=== PATIENT | male | born 1930 | race Caucasian/White ===

== ENCOUNTER 2018-07-19 10:40 | Inpatient (IN) | payer MEDICARE, OTHER ==
[~2018-07-19] VITALS: Ht 195.6 cm; Wt 97.2 kg
[2018-07-19] MEDS ORDERED: IV NORMAL SALINE 1000ML BAG 1,000 ML IV SCH (10:50)
[2018-07-19] MEDS ORDERED: MORPHINE SULFATE 2 MG/ML VIAL. IV ONE (11:00)
--- NOTE | 2018-07-19 11:07 | PHYS DOC ---
Past Medical History Past Medical History: Hyperthyroid Smoking: Quit Greater Than 1 Year Adult General HPI HPI Patient is an 88-year-old male who presents to the emergency department via EMS from his doctor's office. The patient states he has been having increasing right leg and foot pain for the past 4-5 days. He also has had a bluish discoloration of his right foot. 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 The patient was sent to the emergency department emergently for possible arterial occlusion. The report from EMS stated that the patient had an ultrasound done at the doctor's office but I am not certain that this is the case as there is no report. Additionally, the patient has a readily palpable posterior tibial pulse on the right. The patient denies any chest pain shortness of breath, numbness, or weakness. He does not take any anticoagulants. There are no other alleviating or exacerbating factors to his symptoms. I will attempt to contact the patient's PCP for further clarification of the concerns and any diagnostic testing that might of been done. Update: I did speak with the patient's PCP, who said that the patient had an arterial ultrasound done about 2 days ago which did show extensive arterial disease of popliteal aneurysms. The patient's PCPs office states that he called the vascular surgery office affiliated with this hospital, and was told by the front desk attendant to send the patient to the emergency department. Review of Systems Review of Systems Constitutional: Denies fever or chills [] Eyes: Denies change in visual acuity, redness, or eye pain [] HENT: Denies nasal congestion or sore throat [] Respiratory: Denies cough or shortness of breath [] Cardiovascular: The patient denies any shortness of breath, chest pain, palpitations, or orthopnea[] GI: Denies abdominal pain, nausea, vomiting, bloody stools or diarrhea [] : Denies dysuria or hematuria [] Musculoskeletal: Denies back pain or joint pain. Does complain of right leg and foot pain. [] Integument: Denies rash or skin lesions [] Neurologic: Denies headache, focal weakness or sensory changes [] Endocrine: Denies polyuria or polydipsia [] All other systems were reviewed and found to be within normal limits, except as documented in this note. Current Medications Current Medications Current Medications Medications (Trade) Dose Ordered Sig/Kaci Start Time Stop Time Status Last Admin Dose Admin Hydromorphone HCl (Dilaudid) 1 mg 1X ONCE 07/19/18 14:30 07/19/18 14:31 07/19/18 14:25 1 MG Iohexol (Omnipaque 350 Mg/ml) 95 ml 1X ONCE 07/19/18 11:45 07/19/18 11:46 DC 07/19/18 11:45 95 ML Morphine Sulfate (Morphine Sulfate) 4 mg 1X ONCE 07/19/18 12:00 07/19/18 12:01 DC 07/19/18 11:54 4 MG Sodium Chloride 1,000 ml @ 100 mls/hr Q10H 07/19/18 10:50 07/19/18 20:49 07/19/18 11:17 100 MLS/HR Allergies Allergies Allergies Coded Allergies Type Severity Reaction Last Updated Verified penicillin G Allergy Intermediate 07/19/18 Yes Physical Exam Physical Exam PHYSICAL EXAM: CONSTITUTIONAL: Well developed, well nourished HEAD: normocephalic, atraumatic EENT: PERRL, EOMI. Conjunctivae normal color, sclerae non-icteric; moist mucous membranes. NECK: Supple, non-tender; no meningismus. LUNGS: Lungs CTA, breathing even and unlabored. Normal air movement. HEART: irregularly irregular rhythm, no murmur CHEST: No deformity; non-tender ABDOMEN: The abdomen is soft, and non-tender, no masses or bruits. EXTREM: Normal ROM; no deformity, there are bounding we palpable popliteal pulses bilaterally. There is a readily palpable posterior tibial pulse on the right, there is a weakly palpable dorsalis pedis pulse, both arteries have strong Doppler signals. There is a dusky appearance to the foot distally, and somewhat medially as well, on the right, without any coolness or warmth palpable. There is mild edema to the right leg relative to the left. SKIN: No rash; no diaphoresis NEURO: Alert; normal speech and cognition; CN's grossly intact; strength grossly intact without focal deficit. BACK: No CVA TTP. Current Patient Data Vital Signs Vital Signs Date Time Temp Pulse Resp B/P (MAP) Pulse Ox O2 Delivery O2 Flow Rate FiO2 6/5/19 14:25 29 Room Air 07/19/18 11:54 100 07/19/18 10:40 98.2 71 140/82 (101) 98.2 Lab Values Laboratory Tests Test 07/19/18 10:55 White Blood Count 7.5 x10^3/uL (4.0-11.0) Red Blood Count 4.86 x10^6/uL (4.30-5.70) Hemoglobin 13.4 g/dL (13.0-17.5) Hematocrit 41.8 % (39.0-53.0) Mean Corpuscular Volume 86 fL (79-100) Mean Corpuscular Hemoglobin 28 pg (25-35) Mean Corpuscular Hemoglobin Concent 32 g/dL (31-37) Red Cell Distribution Width 16.6 % (11.5-14.5) H Platelet Count 166 x10^3/uL (140-400) Neutrophils (%) (Auto) 79 % (31-73) H Lymphocytes (%) (Auto) 12 % (24-48) L Monocytes (%) (Auto) 7 % (0-9) Eosinophils (%) (Auto) 1 % (0-3) Basophils (%) (Auto) 1 % (0-3) Neutrophils # (Auto) 6.0 x10^3uL (1.8-7.7) Lymphocytes # (Auto) 0.9 x10^3/uL (1.0-4.8) L Monocytes # (Auto) 0.5 x10^3/uL (0.0-1.1) Eosinophils # (Auto) 0.1 x10^3/uL (0.0-0.7) Basophils # (Auto) 0.0 x10^3/uL (0.0-0.2) Prothrombin Time 13.1 SEC (11.7-14.0) Prothrombin Time INR 1.0 (0.8-1.1) PTT 30 SEC (24-38) Sodium Level 139 mmol/L (136-145) Potassium Level 4.2 mmol/L (3.5-5.1) Chloride Level 104 mmol/L (98-107) Carbon Dioxide Level 25 mmol/L (21-32) Anion Gap 10 (6-14) Blood Urea Nitrogen 16 mg/dL (8-26) Creatinine 1.0 mg/dL (0.7-1.3) Estimated GFR (Cockcroft-Gault) 70.5 BUN/Creatinine Ratio 16 (6-20) Glucose Level 91 mg/dL (70-99) Lactic Acid Level 1.4 mmol/L (0.4-2.0) Calcium Level 9.2 mg/dL (8.5-10.1) Magnesium Level 2.5 mg/dL (1.8-2.4) H Total Bilirubin 0.7 mg/dL (0.2-1.0) Aspartate Amino Transferase (AST) 23 U/L (15-37) Alanine Aminotransferase (ALT) 17 U/L (16-63) Alkaline Phosphatase 71 U/L (46-116) Creatine Kinase 153 U/L (39-308) QL-Uaq-T-Type Natriuretic Peptide 1582 pg/mL (0-449) H Total Protein 7.6 g/dL (6.4-8.2) Albumin 3.8 g/dL (3.4-5.0) Albumin/Globulin Ratio 1.0 (1.0-1.7) Laboratory Tests 07/19/18 10:55 Laboratory Tests 07/19/18 10:55 EKG EKG Probable Atrial fibrillation at a rate of 64 bpm, left axis deviation, normal intervals. There are no acute ischemic ST/T changes. Radiology/Procedures Radiology/Procedures [PROCEDURE: VENOUS LOWER EXTREMITY RIGHT Right lower extremity venous doppler ultrasound Indication: Pain and swelling, discoloration. Technique: Color Doppler, grayscale, and spectral waveform analysis is used to evaluate the right femoral and popliteal veins. Findings: No evidence of deep venous thrombosis. Normal response to augmentation, normal compressibility and normal phasicity is demonstrated. Visualized calf veins are patent. Incidentally noted is a dilated popliteal artery, with partial thrombosis, compatible with an aneurysm measuring up to 4 cm diameter. Impression: 1. No evidence of deep venous thrombosis. 2. Right popliteal artery aneurysm, was more completely evaluated on arterial Doppler ultrasound of July 17, 2018. ] PROCEDURE: CT ANGIO ABD ILEO/FEMOR RUNOFF CT ANGIO ABD ILEO/FEMOR RUNOFF Indication: Right leg pain, swelling and discoloration Exposure: One or more of the following individualized dose reduction techniques were utilized for this examination: 1. Automated exposure control 2. Adjustment of the mA and/or kV according to patient size 3. Use of iterative reconstruction technique. TECHNIQUE: Standard imaging obtained after intravenous contrast. MIP reconstructions were obtained. A delayed acquisition is obtained through the calf bilaterally about 10 seconds after the initial acquisition as per the technologist. Emergency interpretation and reporting was requested. Comparison: None are available. Contrast: Intravenous contrast was given Lower abdominal aorta: The lower abdominal aorta is calcified and ectatic. Inferior mesenteric artery is patent. Left lower extremity: Left common iliac artery measures 2.5 cm diameter compatible with aneurysmal dilatation. Ectasia of the internal and external iliac arteries with tortuosity. Diffuse atherosclerotic calcification. The proximal to mid superficial femoral artery is patent. There is gradual diminished enhancement of the distal superficial femoral artery, with no enhancement of the popliteal artery on the initial acquisition. There is a popliteal artery aneurysm, which measures about 2.5 cm diameter. The lack of flow in the popliteal artery suggests thrombosis or occlusion. There is no visible flow in the calf runoff arteries on the initial acquisition. The delayed acquisition does demonstrate some minimal but very poor opacification of the runoff arteries which are calcified. Generalized atherosclerotic calcification. Right lower extremity: Ectasia of the right iliac arteries. Right superficial femoral artery is ectatic but grossly patent. There is a popliteal artery aneurysm. The entire aneurysm measures about 5 cm diameter with mural thrombus. The patent lumen measures 2.2 cm. There is flow within the posterior tibial artery which is narrow and calcified but does appear to cross the ankle. Peroneal artery is narrowed but patent through the distal calf. Poor and intermittent flow is seen within the right anterior tibial artery, but it does appear to extend to the level of the ankle. No definite flow in the dorsalis pedis artery. Generalized atherosclerotic calcification. Nonvascular findings: Exam is limited by the technique. Symmetric enhancement of the lower kidneys. Colonic diverticulosis. Degenerative changes at the lower spine and skeletal pelvis, and knees. IMPRESSION: 1. Left popliteal artery aneurysm. There is gradual diminished enhancement of the distal left superficial femoral artery and popliteal artery suggesting thrombosis or occlusion. Poor arterial flow through the calf runoff arteries. 2. Right popliteal artery aneurysm with a patent lumen. The runoff calf arteries are atherosclerotic and irregular, although do demonstrate some flow. 3. 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 Course & Med Decision Making Course & Med Decision Making Pertinent Labs and Imaging studies reviewed. (See chart for details) []2:25 PM: The patient's condition remained stable. The exact etiology of his leg discomfort and discoloration is unknown. The patient is in atrial fibrillation, and the possibility of emboli is also entertained, although the clinical appearance is not highly suggestive of this. The patient be admitted to the hospitalist service, who has been paged, and vascular surgery will be consulted. Dragon Disclaimer Dragon Disclaimer This electronic medical record was generated, in whole or in part, using a voice recognition dictation system. Departure Departure Impression: Primary Impression: Leg pain Additional Impression: PVD (peripheral vascular disease) Disposition: ADMITTED INPATIENT [facility] Condition: STABLE Problem Qualifiers JUAN VALLE MD Jul 19, 2018 11:07
[2018-07-19 11:14] LABS: BASO % 1 % (0-3); EOS # 0.1 x10^3/uL (0.0-0.7); EOS % 1 % (0-3); HEMATOCRIT 41.8 % (39.0-53.0); HEMOGLOBIN 13.4 g/dL (13.0-17.5); LYMPH # 0.9 x10^3/uL (1.0-4.8); LYMPH % 12 % (24-48); MEAN CORPUSCULAR HEMOGLOBIN 28 pg (25-35); MEAN CORPUSCULAR HGB CONC 32 g/dL (31-37); MEAN CORPUSCULAR VOLUME 86 fL (79-100); MONO # 0.5 x10^3/uL (0.0-1.1); MONO % 7 % (0-9); NEUT % 79 % (31-73); PLATELET COUNT 166 x10^3/uL (140-400); RED BLOOD COUNT 4.86 x10^6/uL (4.30-5.70); RED CELL DISTRIBUTION WIDTH 16.6 % (11.5-14.5); WHITE BLOOD COUNT 7.5 x10^3/uL (4.0-11.0)
[2018-07-19 11:24] LABS: PROTHROMBIN TIME PATIENT 13.1 SEC (11.7-14.0)
[2018-07-19 11:32] LABS: CALCIUM 9.2 mg/dL (8.5-10.1); GFR 70.5; POTASSIUM 4.2 mmol/L (3.5-5.1)
[2018-07-19 11:45] LABS: ALBUMIN 3.8 g/dL (3.4-5.0); MAGNESIUM 2.5 mg/dL (1.8-2.4); TOTAL BILIRUBIN 0.7 mg/dL (0.2-1.0); TOTAL PROTEIN 7.6 g/dL (6.4-8.2)
[2018-07-19] MEDS ORDERED: IOHEXOL 350 MG/ML 100 ML VIAL. IV ONE (11:45)
[2018-07-19] MEDS ORDERED: LEVO50TA5 PO (11:51)
[2018-07-19] MEDS ORDERED: DONE10TA61 PO (11:51)
[2018-07-19] MEDS ORDERED: GABA-585 PO (11:51)
[2018-07-19] MEDS ORDERED: MEMA10TA PO (11:51)
--- NOTE | 2018-07-19 11:55 | RAD ---
Right lower extremity venous doppler ultrasound Indication: Pain and swelling, discoloration. Technique: Color Doppler, grayscale, and spectral waveform analysis is used to evaluate the right femoral and popliteal veins. Findings: No evidence of deep venous thrombosis. Normal response to augmentation, normal compressibility and normal phasicity is demonstrated. Visualized calf veins are patent. Incidentally noted is a dilated popliteal artery, with partial thrombosis, compatible with an aneurysm measuring up to 4 cm diameter. Impression: 1. No evidence of deep venous thrombosis. 2. Right popliteal artery aneurysm, was more completely evaluated on arterial Doppler ultrasound of July 17, 2018. Electronically signed by: Sherwin Clemens MD (07/19/2018 11:52 AM) [facility]
[2018-07-19] MEDS ORDERED: MORPHINE SULFATE 4 MG/ML VIAL. IV ONE (12:00)
--- NOTE | 2018-07-19 12:05 | EKG ---
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
--- NOTE | 2018-07-19 14:01 | RAD ---
CT ANGIO ABD ILEO/FEMOR RUNOFF Indication: Right leg pain, swelling and discoloration Exposure: One or more of the following individualized dose reduction techniques were utilized for this examination: 1. Automated exposure control 2. Adjustment of the mA and/or kV according to patient size 3. Use of iterative reconstruction technique. TECHNIQUE: Standard imaging obtained after intravenous contrast. MIP reconstructions were obtained. A delayed acquisition is obtained through the calf bilaterally about 10 seconds after the initial acquisition as per the technologist. Emergency interpretation and reporting was requested. Comparison: None are available. Contrast: Intravenous contrast was given Lower abdominal aorta: The lower abdominal aorta is calcified and ectatic. Inferior mesenteric artery is patent. Left lower extremity: Left common iliac artery measures 2.5 cm diameter compatible with aneurysmal dilatation. Ectasia of the internal and external iliac arteries with tortuosity. Diffuse atherosclerotic calcification. The proximal to mid superficial femoral artery is patent. There is gradual diminished enhancement of the distal superficial femoral artery, with no enhancement of the popliteal artery on the initial acquisition. There is a popliteal artery aneurysm, which measures about 2.5 cm diameter. The lack of flow in the popliteal artery suggests thrombosis or occlusion. There is no visible flow in the calf runoff arteries on the initial acquisition. The delayed acquisition does demonstrate some minimal but very poor opacification of the runoff arteries which are calcified. Generalized atherosclerotic calcification. Right lower extremity: Ectasia of the right iliac arteries. Right superficial femoral artery is ectatic but grossly patent. There is a popliteal artery aneurysm. The entire aneurysm measures about 5 cm diameter with mural thrombus. The patent lumen measures 2.2 cm. There is flow within the posterior tibial artery which is narrow and calcified but does appear to cross the ankle. Peroneal artery is narrowed but patent through the distal calf. Poor and intermittent flow is seen within the right anterior tibial artery, but it does appear to extend to the level of the ankle. No definite flow in the dorsalis pedis artery. Generalized atherosclerotic calcification. Nonvascular findings: Exam is limited by the technique. Symmetric enhancement of the lower kidneys. Colonic diverticulosis. Degenerative changes at the lower spine and skeletal pelvis, and knees. IMPRESSION: 1. Left popliteal artery aneurysm. There is gradual diminished enhancement of the distal left superficial femoral artery and popliteal artery suggesting thrombosis or occlusion. Poor arterial flow through the calf runoff arteries. 2. Right popliteal artery aneurysm with a patent lumen. The runoff calf arteries are atherosclerotic and irregular, although do demonstrate some flow. 3. 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 Electronically signed by: Sherwin Clemens MD (07/19/2018 1:58 PM) [facility]
[2018-07-19] MEDS ORDERED: HYDROmorphone 2 MG/ML VIAL IV ONE (14:30)
[2018-07-19 19:00] VITALS: BP 123/69
--- NOTE | 2018-07-19 19:11 | PDOC ---
Provider Note Provider Note (Please see full dictation) 88 yo male presents with 3-4 week history of right foot pain and discoloration. He has had discoloration of the right foot for several months. The pain has been more recent. An arterial US 07/17/18 showed bilateral popliteal artery aneurysms with relatively normal distal tibial artery flow. CTA confirmed that finding today. He has cyanosis starting on the proximal foot with 3-4 second capillary refill more distally. He has some decreased sensation on the right foot. Findings are consistent with ischemia of the foot despite reasonable more proximal vessel flow. This is concerning for embolization of the distal vessels in the foot. Would recommend anticoagulation with heparin with angiogram and possible thrombolysis of pedal vessels if indicated. I discussed risks and benefits in detail with him and his [id number] (phone) and friends at the bedside. He acknowledged and elected to proceed. Will have a Rooke boot placed on the right foot. JESSICA GEORGE MD Jul 19, 2018 19:11
[2018-07-19] MEDS ORDERED: HEPARIN for IV BOLUS 10,000 UNIT/10 ML VIAL. IV PRN (19:15)
[2018-07-19] MEDS ORDERED: HEPARIN for IV BOLUS 10,000 UNIT/10 ML VIAL. IV ONE (19:15)
[2018-07-19] MEDS ORDERED: HEPARIN 25,000UTS/500ML PREMIX 500 ML IV PRN (19:15)
[2018-07-19] MEDS: MORPHINE SULFATE 4 MG/ML VIAL. IV PRN ×2 (19:17→21:58)
--- NOTE | 2018-07-19 20:05 | NUR ---
Order placed by Dr. De Luna to have panel monitor on. Per Dr. Gonzalez, pt. will be transferred to [facility]. This was explained to pt. Pt. agreed to transfer. Will continue to monitor.
--- NOTE | 2018-07-19 21:00 | NUR ---
Pt. was transferred to room 671 at this time. Report was given to LIVIER Serrano around 2034.
[2018-07-19 21:49] VITALS: BP 148/67
[2018-07-19] MEDS: IV NORMAL SALINE 1000ML BAG 1,000 ML IV SCH (22:00)
--- NOTE | 2018-07-19 22:41 | NUR ---
Patient arrived to the floor via bed and escorted by nurse Galarza. Patient VSS, lungs clear to auscultation, pulses irregular and 2t in BUE, pulses weak and irregular in BLE, RLE dusky in color, warm to touch and very painful. Heparin drip and NS fluids started, pain meds given and pt resting comfortably. Will continue to monitor.
--- NOTE | 2018-07-19 23:29 | HP ---
ADMIT DATE: 07/19/2018 CHIEF COMPLAINT: Right leg cyanosis and pain and discoloration. HISTORY OF PRESENT ILLNESS: The patient is a pleasant 88-year-old male who presented with right foot and leg discoloration. It is painful. It is cool to touch. He apparently had an arterial ultrasound done on 07/17/2018 which showed bilateral popliteal artery aneurysms. It appears the patient has an arterial occlusion. I discussed the case with ER physician. We are going to admit the patient and consult Dr. De Luna. Dr. De Luna just showed up and states that the patient probably has had emboli to the lower extremity from the aneurysm. He is going to consider doing some catheterization of the lower extremity and put him on some heparin tonight. PAST MEDICAL HISTORY: Peripheral vascular disease, hypothyroidism. ALLERGIES: PENICILLIN. FAMILY HISTORY: Coronary artery disease. SOCIAL HISTORY: He does not drink, smoke or take drugs (he quit smoking within 1 year ago). MEDICATIONS: Reviewed, please refer to the MRAD. REVIEW OF SYSTEMS: GENERAL: No history of weight change, weakness or fevers. SKIN: No bruising, hair changes or rashes. EYES: No blurred, double or loss of vision. NOSE AND THROAT: No history of nosebleeds, hoarseness or sore throat. HEART: No history of palpitations, chest pain or shortness of breath on exertion. LUNGS: Denies cough, hemoptysis, wheezing or shortness of breath. GASTROINTESTINAL: Denies changes in appetite, nausea, vomiting, diarrhea or constipation. GENITOURINARY: No history of frequency, urgency, hesitancy or nocturia. NEUROLOGIC: Denies history of numbness, tingling, tremor or weakness. PSYCHIATRIC: No history of panic, anxiety or depression. ENDOCRINE: No history of heat or cold intolerance, polyuria or polydipsia. EXTREMITIES: He complains of right foot pain and discoloration. PHYSICAL EXAMINATION: VITAL SIGNS: Temperature afebrile, pulse 80, respirations 16, blood pressure 148/67, O2 sat 95%. GENERAL: He is alert, cooperative, very pleasant. His family is present, so is Dr. De Luna. He is here examining the patient with me. HEART: Distant S1, S2. LUNGS: Clear to auscultation. ABDOMEN: Soft, positive bowel sounds. EXTREMITIES: The right foot is cyanotic, slightly cool to touch. He has got a pedal pulse, but it is thready and distant but is painful. ENDOCRINE: No thyromegaly. LYMPHATICS: No cervical nodes. HEMATOPOIETIC: No bruising. PSYCHIATRIC: He is stable. VASCULAR: He has got poor capillary refill on the right foot. LABORATORY DATA: Hematology is normal. Electrolytes are normal. Magnesium slightly high at 2.5. ASSESSMENT AND PLAN: Probable arterial occlusion, probably secondary to embolic disease from clots that may have arisen from the aneurysm in the popliteal space. The patient has been admitted. We are consulting Dr. De Luna. He is going to place the patient on heparin and take him for an angiogram in the morning. Suspect he may get some TPA. For now, cardiac monitoring, home meds, frequent labs. Full code. PROGNOSIS: Guarded. LIZBETH HARTMAN DO DR: LA NENA/patricia JOB#: [id number] / [id number]
[2018-07-19 23:42] VITALS: BP 146/71
[2018-07-20] VITALS (9 sets, daily range): BP systolic 114–138; BP diastolic 68–82
[2018-07-20] MEDS: MORPHINE SULFATE 4 MG/ML VIAL. IV PRN ×3 (03:31→21:07)
[2018-07-20 03:42] LABS: HEMATOCRIT 35.7 % (39.0-53.0); HEMOGLOBIN 11.7 g/dL (13.0-17.5); RED BLOOD COUNT 4.22 x10^6/uL (4.30-5.70); RED CELL DISTRIBUTION WIDTH 15.9 % (11.5-14.5); WHITE BLOOD COUNT 5.8 x10^3/uL (4.0-11.0)
[2018-07-20 05:49] LABS: CALCIUM 8.4 mg/dL (8.5-10.1); CREATININE 0.8 mg/dL (0.7-1.3); GFR 91.2; POTASSIUM 3.9 mmol/L (3.5-5.1)
--- NOTE | 2018-07-20 10:38 | PDOC ---
[employer] PROGRESS NOTE Chief Complaint Chief Complaint Probable arterial occlusion, probably secondary to embolic disease from clots that may have arisen from the aneurysm in the popliteal space. Hypothyroidism PVD Advanced age He is DNR History of Present Illness History of Present Illness Patient seen and examined He is currently getting an echocardiogram I unwrapped the right leg and it appears to have slightly better circulation but not much Discussed with case management The plan is to getting to interventional radiology today to catheterize that r ight leg and consider TPA therapy to dissolve probable clots He may eventually need to have surgery on the right popliteal space to fix the aneurysm Dr. De Luna is following Vitals Vitals Vital Signs Date Time Temp Pulse Resp B/P (MAP) Pulse Ox O2 Delivery O2 Flow Rate FiO2 07/20/18 07:05 98.1 86 16 117/68 (84) 94 Room Air 98.1 Physical Exam General: Alert, Oriented X3, Cooperative Heart: Regular rate, Normal S1, Normal S2 Lungs: Clear, Wheezing Abdomen: Normal bowel sounds, Soft Extremities: Other (right foot cool to touch low) Skin: No rashes, No breakdown Labs Labs: Laboratory Tests Test 07/19/18 10:55 07/20/18 03:30 White Blood Count 7.5 x10^3/uL (4.0-11.0) 5.8 x10^3/uL (4.0-11.0) Red Blood Count 4.86 x10^6/uL (4.30-5.70) 4.22 x10^6/uL (4.30-5.70) Hemoglobin 13.4 g/dL (13.0-17.5) 11.7 g/dL (13.0-17.5) Hematocrit 41.8 % (39.0-53.0) 35.7 % (39.0-53.0) Mean Corpuscular Volume 86 fL (79-100) 85 fL (79-100) Mean Corpuscular Hemoglobin 28 pg (25-35) 28 pg (25-35) Mean Corpuscular Hemoglobin Concent 32 g/dL (31-37) 33 g/dL (31-37) Red Cell Distribution Width 16.6 % (11.5-14.5) 15.9 % (11.5-14.5) Platelet Count 166 x10^3/uL (140-400) 159 x10^3/uL (140-400) Neutrophils (%) (Auto) 79 % (31-73) Lymphocytes (%) (Auto) 12 % (24-48) Monocytes (%) (Auto) 7 % (0-9) Eosinophils (%) (Auto) 1 % (0-3) Basophils (%) (Auto) 1 % (0-3) Neutrophils # (Auto) 6.0 x10^3uL (1.8-7.7) Lymphocytes # (Auto) 0.9 x10^3/uL (1.0-4.8) Monocytes # (Auto) 0.5 x10^3/uL (0.0-1.1) Eosinophils # (Auto) 0.1 x10^3/uL (0.0-0.7) Basophils # (Auto) 0.0 x10^3/uL (0.0-0.2) Prothrombin Time 13.1 SEC (11.7-14.0) Prothromb Time International Ratio 1.0 (0.8-1.1) Activated Partial Thromboplast Time 30 SEC (24-38) Sodium Level 139 mmol/L (136-145) 140 mmol/L (136-145) Potassium Level 4.2 mmol/L (3.5-5.1) 3.9 mmol/L (3.5-5.1) Chloride Level 104 mmol/L (98-107) 105 mmol/L (98-107) Carbon Dioxide Level 25 mmol/L (21-32) 25 mmol/L (21-32) Anion Gap 10 (6-14) 10 (6-14) Blood Urea Nitrogen 16 mg/dL (8-26) 13 mg/dL (8-26) Creatinine 1.0 mg/dL (0.7-1.3) 0.8 mg/dL (0.7-1.3) Estimated GFR (Cockcroft-Gault) 70.5 91.2 BUN/Creatinine Ratio 16 (6-20) Glucose Level 91 mg/dL (70-99) 100 mg/dL (70-99) Lactic Acid Level 1.4 mmol/L (0.4-2.0) Calcium Level 9.2 mg/dL (8.5-10.1) 8.4 mg/dL (8.5-10.1) Magnesium Level 2.5 mg/dL (1.8-2.4) Total Bilirubin 0.7 mg/dL (0.2-1.0) Aspartate Amino Transf (AST/SGOT) 23 U/L (15-37) Alanine Aminotransferase (ALT/SGPT) 17 U/L (16-63) Alkaline Phosphatase 71 U/L (46-116) Creatine Kinase 153 U/L (39-308) HX-Cup-X-Type Natriuretic Peptide 1582 pg/mL (0-449) 2065 pg/mL (0-449) Total Protein 7.6 g/dL (6.4-8.2) Albumin 3.8 g/dL (3.4-5.0) Albumin/Globulin Ratio 1.0 (1.0-1.7) Heparin Anti-Xa Act, Unfractionated 0.12 IU/mL (0.30-0.70) Thyroid Stimulating Hormone (TSH) 3.435 uIU/mL (0.358-3.74) Assessment and Plan Assessmemt and Plan Problems Medical Problems: (1) Leg pain Status: Acute (2) PVD (peripheral vascular disease) Status: Acute Peripheral vascular disease with probable embolic clots to the right foot vascu lature Plan Discussed with case management The plan is to getting to interventional radiology today to catheterize that right leg and consider TPA therapy to dissolve probable clots He may eventually need to have surgery on the right popliteal space to fix the aneurysm Dr. De Luna is following Comment Review of Relevant I have reviewed the following items mendoza (where applicable) has been applied. Labs Laboratory Tests Test 07/19/18 10:55 07/20/18 03:30 White Blood Count 7.5 x10^3/uL (4.0-11.0) 5.8 x10^3/uL (4.0-11.0) Red Blood Count 4.86 x10^6/uL (4.30-5.70) 4.22 x10^6/uL (4.30-5.70) Hemoglobin 13.4 g/dL (13.0-17.5) 11.7 g/dL (13.0-17.5) Hematocrit 41.8 % (39.0-53.0) 35.7 % (39.0-53.0) Mean Corpuscular Volume 86 fL (79-100) 85 fL (79-100) Mean Corpuscular Hemoglobin 28 pg (25-35) 28 pg (25-35) Mean Corpuscular Hemoglobin Concent 32 g/dL (31-37) 33 g/dL (31-37) Red Cell Distribution Width 16.6 % (11.5-14.5) 15.9 % (11.5-14.5) Platelet Count 166 x10^3/uL (140-400) 159 x10^3/uL (140-400) Neutrophils (%) (Auto) 79 % (31-73) Lymphocytes (%) (Auto) 12 % (24-48) Monocytes (%) (Auto) 7 % (0-9) Eosinophils (%) (Auto) 1 % (0-3) Basophils (%) (Auto) 1 % (0-3) Neutrophils # (Auto) 6.0 x10^3uL (1.8-7.7) Lymphocytes # (Auto) 0.9 x10^3/uL (1.0-4.8) Monocytes # (Auto) 0.5 x10^3/uL (0.0-1.1) Eosinophils # (Auto) 0.1 x10^3/uL (0.0-0.7) Basophils # (Auto) 0.0 x10^3/uL (0.0-0.2) Prothrombin Time 13.1 SEC (11.7-14.0) Prothromb Time International Ratio 1.0 (0.8-1.1) Activated Partial Thromboplast Time 30 SEC (24-38) Sodium Level 139 mmol/L (136-145) 140 mmol/L (136-145) Potassium Level 4.2 mmol/L (3.5-5.1) 3.9 mmol/L (3.5-5.1) Chloride Level 104 mmol/L (98-107) 105 mmol/L (98-107) Carbon Dioxide Level 25 mmol/L (21-32) 25 mmol/L (21-32) Anion Gap 10 (6-14) 10 (6-14) Blood Urea Nitrogen 16 mg/dL (8-26) 13 mg/dL (8-26) Creatinine 1.0 mg/dL (0.7-1.3) 0.8 mg/dL (0.7-1.3) Estimated GFR (Cockcroft-Gault) 70.5 91.2 BUN/Creatinine Ratio 16 (6-20) Glucose Level 91 mg/dL (70-99) 100 mg/dL (70-99) Lactic Acid Level 1.4 mmol/L (0.4-2.0) Calcium Level 9.2 mg/dL (8.5-10.1) 8.4 mg/dL (8.5-10.1) Magnesium Level 2.5 mg/dL (1.8-2.4) Total Bilirubin 0.7 mg/dL (0.2-1.0) Aspartate Amino Transf (AST/SGOT) 23 U/L (15-37) Alanine Aminotransferase (ALT/SGPT) 17 U/L (16-63) Alkaline Phosphatase 71 U/L (46-116) Creatine Kinase 153 U/L (39-308) GM-Gmo-J-Type Natriuretic Peptide 1582 pg/mL (0-449) 2065 pg/mL (0-449) Total Protein 7.6 g/dL (6.4-8.2) Albumin 3.8 g/dL (3.4-5.0) Albumin/Globulin Ratio 1.0 (1.0-1.7) Heparin Anti-Xa Act, Unfractionated 0.12 IU/mL (0.30-0.70) Thyroid Stimulating Hormone (TSH) 3.435 uIU/mL (0.358-3.74) Laboratory Tests Test 07/19/18 10:55 07/20/18 03:30 White Blood Count 7.5 x10^3/uL (4.0-11.0) 5.8 x10^3/uL (4.0-11.0) Red Blood Count 4.86 x10^6/uL (4.30-5.70) 4.22 x10^6/uL (4.30-5.70) Hemoglobin 13.4 g/dL (13.0-17.5) 11.7 g/dL (13.0-17.5) Hematocrit 41.8 % (39.0-53.0) 35.7 % (39.0-53.0) Mean Corpuscular Volume 86 fL (79-100) 85 fL (79-100) Mean Corpuscular Hemoglobin 28 pg (25-35) 28 pg (25-35) Mean Corpuscular Hemoglobin Concent 32 g/dL (31-37) 33 g/dL (31-37) Red Cell Distribution Width 16.6 % (11.5-14.5) 15.9 % (11.5-14.5) Platelet Count 166 x10^3/uL (140-400) 159 x10^3/uL (140-400) Neutrophils (%) (Auto) 79 % (31-73) Lymphocytes (%) (Auto) 12 % (24-48) Monocytes (%) (Auto) 7 % (0-9) Eosinophils (%) (Auto) 1 % (0-3) Basophils (%) (Auto) 1 % (0-3) Neutrophils # (Auto) 6.0 x10^3uL (1.8-7.7) Lymphocytes # (Auto) 0.9 x10^3/uL (1.0-4.8) Monocytes # (Auto) 0.5 x10^3/uL (0.0-1.1) Eosinophils # (Auto) 0.1 x10^3/uL (0.0-0.7) Basophils # (Auto) 0.0 x10^3/uL (0.0-0.2) Prothrombin Time 13.1 SEC (11.7-14.0) Prothromb Time International Ratio 1.0 (0.8-1.1) Activated Partial Thromboplast Time 30 SEC (24-38) Sodium Level 139 mmol/L (136-145) 140 mmol/L (136-145) Potassium Level 4.2 mmol/L (3.5-5.1) 3.9 mmol/L (3.5-5.1) Chloride Level 104 mmol/L (98-107) 105 mmol/L (98-107) Carbon Dioxide Level 25 mmol/L (21-32) 25 mmol/L (21-32) Anion Gap 10 (6-14) 10 (6-14) Blood Urea Nitrogen 16 mg/dL (8-26) 13 mg/dL (8-26) Creatinine 1.0 mg/dL (0.7-1.3) 0.8 mg/dL (0.7-1.3) Estimated GFR (Cockcroft-Gault) 70.5 91.2 BUN/Creatinine Ratio 16 (6-20) Glucose Level 91 mg/dL (70-99) 100 mg/dL (70-99) Lactic Acid Level 1.4 mmol/L (0.4-2.0) Calcium Level 9.2 mg/dL (8.5-10.1) 8.4 mg/dL (8.5-10.1) Magnesium Level 2.5 mg/dL (1.8-2.4) Total Bilirubin 0.7 mg/dL (0.2-1.0) Aspartate Amino Transf (AST/SGOT) 23 U/L (15-37) Alanine Aminotransferase (ALT/SGPT) 17 U/L (16-63) Alkaline Phosphatase 71 U/L (46-116) Creatine Kinase 153 U/L (39-308) NZ-Eiy-N-Type Natriuretic Peptide 1582 pg/mL (0-449) 2065 pg/mL (0-449) Total Protein 7.6 g/dL (6.4-8.2) Albumin 3.8 g/dL (3.4-5.0) Albumin/Globulin Ratio 1.0 (1.0-1.7) Heparin Anti-Xa Act, Unfractionated 0.12 IU/mL (0.30-0.70) Thyroid Stimulating Hormone (TSH) 3.435 uIU/mL (0.358-3.74) Medications Current Medications Morphine Sulfate (Morphine Sulfate) 2 mg 1X ONCE IV Last administered on 07/19/18at 11:19; Start 07/19/18 at 11:00; Stop 07/19/18 at 11:07; Status DC Sodium Chloride 1,000 ml @ 100 mls/hr Q10H IV Last administered on 07/19/18at 11:17; Start 07/19/18 at 10:50; Stop 07/19/18 at 20:49; Status DC Iohexol (Omnipaque 350 Mg/ml) 95 ml 1X ONCE IV Last administered on 07/19/18at 11:45; Start 07/19/18 at 11:45; Stop 07/19/18 at 11:46; Status DC Morphine Sulfate (Morphine Sulfate) 4 mg 1X ONCE IV Last administered on 07/19/18at 11:54; Start 07/19/18 at 12:00; Stop 07/19/18 at 12:01; Status DC Hydromorphone HCl (Dilaudid) 1 mg 1X ONCE IV Last administered on 07/19/18at 14:25; Start 07/19/18 at 14:30; Stop 07/19/18 at 14:31; Status DC Morphine Sulfate (Morphine Sulfate) 4 mg PRN Q2HR PRN IV PAIN Last administered on 07/20/18at 03:31; Start 07/19/18 at 14:45; Stop 07/20/18 at 14:44 Heparin Sodium (Porcine) (Heparin Sodium) 6,900 unit 1X ONCE IV Last administered on 07/19/18at 21:21; Start 07/19/18 at 19:15; Stop 07/19/18 at 19:21; Status DC Heparin Sodium/ Dextrose 500 ml @ 0 mls/hr CONT PRN IV SEE I/O RECORD; Start 07/19/18 at 19:15 Heparin Sodium (Porcine) (Heparin Sodium) 2,150 unit PRN Q6HRS PRN IV FOR UFH LEVEL LESS THAN 0.2 Last administered on 07/20/18at 04:37; Start 07/19/18 at 19:15 Sodium Chloride 1,000 ml @ 50 mls/hr Q20H IV Last administered on 07/19/18at 22:00; Start 07/19/18 at 19:45 Lorazepam (Ativan Inj) 2 mg 1X ONCE IM/IV Last administered on 07/20/18at 03:30; Start 07/20/18 at 03:30; Stop 07/20/18 at 03:31; Status DC Haloperidol (Haldol) 5 mg PRN Q6HRS PRN PO AGITATION; Start 07/20/18 at 03:15 Active Scripts Active Reported Aricept (Donepezil Hcl) 10 Mg Tablet 23 Mg PO HS Gabapentin (Gabapentin) 100 Mg Capsule 100 Mg PO TID Namenda (Memantine Hcl) 10 Mg Tablet 10 Mg PO DAILY Levothyroxine Sodium 50 Mcg Tablet 1 Tab PO DAILY Vitals/I & O Vital Sign - Last 24 Hours 07/19/18 07/19/18 07/19/18 07/19/18 10:40 11:16 11:19 11:46 Temp 98.2 98.2 Pulse 71 82 78 Resp 20 20 18 16 B/P (MAP) 140/82 (101) 146/78 (100) 134/69 (90) Pulse Ox 100 100 100 100 O2 Delivery Room Air Room Air Room Air 07/19/18 07/19/18 07/19/18 07/19/18 11:54 12:16 13:01 13:30 Pulse 68 78 64 Resp 16 16 16 16 B/P (MAP) 144/81 (102) 132/76 (94) 113/67 (82) Pulse Ox 100 98 100 99 O2 Delivery Room Air 07/19/18 07/19/18 07/19/18 07/19/18 14:00 14:25 14:30 15:06 Pulse 64 82 86 Resp 16 29 16 16 B/P (MAP) 96/70 (79) 141/86 (104) 138/80 (99) Pulse Ox 100 98 100 O2 Delivery Room Air Room Air Room Air 07/19/18 07/19/18 07/19/18 07/19/18 16:22 19:00 19:17 19:47 Temp 97.4 97.4 Pulse 74 Resp 18 16 18 B/P (MAP) 123/69 (87) Pulse Ox 98 O2 Delivery Room Air Room Air Room Air 07/19/18 07/19/18 07/19/18 07/19/18 20:00 21:49 21:58 23:42 Temp 97.5 98.1 97.5 98.1 Pulse 60 64 Resp 16 18 B/P (MAP) 148/67 (94) 146/71 (96) Pulse Ox 95 94 O2 Delivery Room Air Room Air Room Air Room Air 07/20/18 07/20/18 07/20/18 07/20/18 03:31 03:49 04:27 07:05 Temp 98.5 98.1 98.5 98.1 Pulse 90 86 Resp 16 16 B/P (MAP) 114/72 (86) 117/68 (84) Pulse Ox 95 94 O2 Delivery Room Air Room Air Room Air Room Air Intake and Output 07/19/18 07/19/18 07/20/18 15:00 23:00 07:00 Intake Total 1100 ml 0 ml Output Total 1100 ml 100 ml Balance -1100 ml 1100 ml -100 ml LIZBETH HARTMAN III DO Jul 20, 2018 10:38
--- NOTE | 2018-07-20 10:41 | PDOC2 ---
TANYA JANG CASINO CAGE MANAGER 07/20/18 1041: CARDIAC CONSULT DATE OF CONSULT Date of Consult DATE: 07/20/18 TIME: 10:35 REASON FOR CONSULT Reason for Consult: AFIB REFERRING PHYSICIAN Referring Physician: Dr. De Luna SOURCE Source: Chart review, Patient HISTORY OF PRESENT ILLNESS HISTORY OF PRESENT ILLNESS This is an 88 yo male who presented secondary to right leg/foot pain with blueish discoloration. Patient reports mild swelling and discoloration has been present for the last couple of months. Became painful in the last week or so. Was seen by primary care physician and was referred to the ED for further evaluation and treatment. Was noted in AFIB, which prompted this consult. No known history of AFIB. No recent chest pain, palpitations, dizziness, diaphoresis, or nausea/vomiting. Is slightly anxious as he is having difficulty urinating presently and reports mild dyspnea. PAST MEDICAL HISTORY Cardiovascular: No pertinent hx Pulmonary: No pertinent hx CENTRAL NERVOUS SYSTEM: Other (no pertinent hx) GI: No pertinent hx Heme/Onc: Cancer (colon ) Hepatobiliary: No pertinent hx Psych: No pertinent hx Musculoskeletal: Osteoarthritis Rheumatologic: No pertinent hx Infectious disease: No pertinent hx ENT: No pertinent hx Renal/: No pertinent hx Endocrine: No pertinent hx, Hypothyroidism Dermatology: No pertinent hx PAST SURGICAL HISTORY Past Surgical History: Colon Resection, Other (right knee surgery ) FAMILY HISTORY Family History: Other (noncontributory to age ) SOCIAL HISTORY Smoke: Quit (20 years ago) ALCOHOL: social Drugs: None Lives: with Family CURRENT MEDICATIONS CURRENT MEDICATIONS Current Medications Medications (Trade) Dose Ordered Sig/Kaci Route PRN Reason Start Time Stop Time Status Last Admin Dose Admin Morphine Sulfate (Morphine Sulfate) 2 mg 1X ONCE IV 07/19/18 11:00 07/19/18 11:07 DC 07/19/18 11:19 Sodium Chloride 1,000 ml @ 100 mls/hr Q10H IV 07/19/18 10:50 07/19/18 20:49 DC 07/19/18 11:17 Iohexol (Omnipaque 350 Mg/ml) 95 ml 1X ONCE IV 07/19/18 11:45 07/19/18 11:46 DC 07/19/18 11:45 Morphine Sulfate (Morphine Sulfate) 4 mg 1X ONCE IV 07/19/18 12:00 07/19/18 12:01 DC 07/19/18 11:54 Hydromorphone HCl (Dilaudid) 1 mg 1X ONCE IV 07/19/18 14:30 07/19/18 14:31 DC 07/19/18 14:25 Morphine Sulfate (Morphine Sulfate) 4 mg PRN Q2HR PRN IV PAIN 07/19/18 14:45 07/20/18 14:44 07/20/18 03:31 Heparin Sodium (Porcine) (Heparin Sodium) 6,900 unit 1X ONCE IV 07/19/18 19:15 07/19/18 19:21 DC 07/19/18 21:21 Heparin Sodium (Porcine) (Heparin Sodium) 2,150 unit PRN Q6HRS PRN IV FOR UFH LEVEL LESS THAN 0.2 07/19/18 19:15 07/20/18 04:37 Sodium Chloride 1,000 ml @ 50 mls/hr Q20H IV 07/19/18 19:45 07/19/18 22:00 Lorazepam (Ativan Inj) 2 mg 1X ONCE IM/IV 07/20/18 03:30 07/20/18 03:31 DC 07/20/18 03:30 ALLERGIES ALLERGIES: Coded Allergies: penicillin G (Verified Allergy, Intermediate, 07/19/18) ROS Review of System 14 point ROS conducted with pertinent positives noted above in HPI. PHYSICAL EXAM General: Alert, Oriented X3, Cooperative HEENT: Atraumatic, Mucous membr. moist/pink Lungs: Clear to auscultation Heart: Normal S1, Normal S2, Other (AFIB) Abdomen: Soft, No tenderness Extremities: Other (1+ right foot edema. Rt rook boot) Skin: No significant lesion, Other (cyanosis of right foot. ) Neuro: Normal speech, Sensation intact Psych/Mental Status: Mental status NL, Other (anxious ) MUSCULOSKELETAL: Osteoarthritic changes both hands VITALS VITALS Vital Signs Date Time Temp Pulse Resp B/P (MAP) Pulse Ox O2 Delivery O2 Flow Rate FiO2 07/20/18 07:05 98.1 86 16 117/68 (84) 94 Room Air 98.1 LABS Lab: Laboratory Tests Test 07/19/18 10:55 07/20/18 03:30 White Blood Count 7.5 x10^3/uL (4.0-11.0) 5.8 x10^3/uL (4.0-11.0) Red Blood Count 4.86 x10^6/uL (4.30-5.70) 4.22 x10^6/uL (4.30-5.70) Hemoglobin 13.4 g/dL (13.0-17.5) 11.7 g/dL (13.0-17.5) Hematocrit 41.8 % (39.0-53.0) 35.7 % (39.0-53.0) Mean Corpuscular Volume 86 fL (79-100) 85 fL (79-100) Mean Corpuscular Hemoglobin 28 pg (25-35) 28 pg (25-35) Mean Corpuscular Hemoglobin Concent 32 g/dL (31-37) 33 g/dL (31-37) Red Cell Distribution Width 16.6 % (11.5-14.5) 15.9 % (11.5-14.5) Platelet Count 166 x10^3/uL (140-400) 159 x10^3/uL (140-400) Neutrophils (%) (Auto) 79 % (31-73) Lymphocytes (%) (Auto) 12 % (24-48) Monocytes (%) (Auto) 7 % (0-9) Eosinophils (%) (Auto) 1 % (0-3) Basophils (%) (Auto) 1 % (0-3) Neutrophils # (Auto) 6.0 x10^3uL (1.8-7.7) Lymphocytes # (Auto) 0.9 x10^3/uL (1.0-4.8) Monocytes # (Auto) 0.5 x10^3/uL (0.0-1.1) Eosinophils # (Auto) 0.1 x10^3/uL (0.0-0.7) Basophils # (Auto) 0.0 x10^3/uL (0.0-0.2) Prothrombin Time 13.1 SEC (11.7-14.0) Prothromb Time International Ratio 1.0 (0.8-1.1) Activated Partial Thromboplast Time 30 SEC (24-38) Sodium Level 139 mmol/L (136-145) 140 mmol/L (136-145) Potassium Level 4.2 mmol/L (3.5-5.1) 3.9 mmol/L (3.5-5.1) Chloride Level 104 mmol/L (98-107) 105 mmol/L (98-107) Carbon Dioxide Level 25 mmol/L (21-32) 25 mmol/L (21-32) Anion Gap 10 (6-14) 10 (6-14) Blood Urea Nitrogen 16 mg/dL (8-26) 13 mg/dL (8-26) Creatinine 1.0 mg/dL (0.7-1.3) 0.8 mg/dL (0.7-1.3) Estimated GFR (Cockcroft-Gault) 70.5 91.2 BUN/Creatinine Ratio 16 (6-20) Glucose Level 91 mg/dL (70-99) 100 mg/dL (70-99) Lactic Acid Level 1.4 mmol/L (0.4-2.0) Calcium Level 9.2 mg/dL (8.5-10.1) 8.4 mg/dL (8.5-10.1) Magnesium Level 2.5 mg/dL (1.8-2.4) Total Bilirubin 0.7 mg/dL (0.2-1.0) Aspartate Amino Transf (AST/SGOT) 23 U/L (15-37) Alanine Aminotransferase (ALT/SGPT) 17 U/L (16-63) Alkaline Phosphatase 71 U/L (46-116) Creatine Kinase 153 U/L (39-308) CH-Bzv-Z-Type Natriuretic Peptide 1582 pg/mL (0-449) 2065 pg/mL (0-449) Total Protein 7.6 g/dL (6.4-8.2) Albumin 3.8 g/dL (3.4-5.0) Albumin/Globulin Ratio 1.0 (1.0-1.7) Heparin Anti-Xa Act, Unfractionated 0.12 IU/mL (0.30-0.70) Thyroid Stimulating Hormone (TSH) 3.435 uIU/mL (0.358-3.74) ASSESSMENT/PLAN ASSESSMENT/PLAN 1. Limb ischemia; suspected embolic. Vascular surgery following. Abdominal angiogram later today 2. Popliteal artery aneurysm, bilateral 3. PAD; CTA notable for possible left distal SFA and popliteal occlusion 4. AFIB, new finding. HR well-controlled 5. Urinary retention; Valentine to be placed 6. Hypothyroidism; on replacement therapy Recommendations Echo to assess LV systolic function TSH, lipids Continue heparin gtt Will likely need long-term OAC Follow vascular surgery recs Further recommendations pending above. BENJI ESCOBAR MD 07/20/18 1234: CARDIAC CONSULT ASSESSMENT/PLAN ASSESSMENT/PLAN Patient seen and examined. Agree with COOKING TEACHER's assessment and plan. Atrial fibrillation newly diagnosed, presently with well-controlled heart rate. 2-D echo was technically difficult but showed normal LV systolic function. Limb ischemia probably embolic - not sure if this is from popliteal artery aneurysms or from atrial fibrillation Continue current management of limb ischemia per vascular surgery team Plan for initiation of Eliquis for long-term anticoagulation prior to discharge Thank you for your consultation TANYA JANG APRN Jul 20, 2018 10:41 BENJI ESCOBAR MD Jul 20, 2018 12:34
--- NOTE | 2018-07-20 11:22 | CARD ---
MR#: [id number] Date of Study: 07/20/2018 Ordering Physician: JESSICA GEORGE, Referring Physician: Adela MIRZA: Maggie Noble APPROVED REPORT EXAM: Two-dimensional and M-mode echocardiogram with Doppler and color Doppler. Other Information Quality : FairHR: 92bpm Technically limited study due to COPD INDICATION Atrial Fibrillation RISK FACTORS Previous smoker 2D DIMENSIONS Left Atrium(2D)4.6 (1.6-4.0cm)IVSd1.4 (0.7-1.1cm) Aortic Root(2D)4.1 (2.0-3.7cm)LVDd5.0 (3.9-5.9cm) LVOT Diameter2.2 (1.8-2.4cm)PWd1.3 (0.7-1.1cm) LVDs3.1 (2.5-4.0cm)FS (%) 38.4 % SV79.4 mlLVEF(%)68.4 (>50%) Aortic Valve AoV Peak Gera.99.2cm/sAoV VTI17.5cm AO Peak GR.3.9mmHgLVOT VTI 17.37cm AO Mean GR.3mmHg Mitral Valve MV E Zqizndby84.1cm/sMV DECEL [id number] MV A Qowgtamn30.3cm/sE/A Ratio1.0 Tricuspid Valve TR P. [id number]/sRAP [id number] TR Peak Gr.[id number] LEFT VENTRICLE The left ventricle is normal size. There is moderate concentric left ventricular hypertrophy. The lef t ventricular systolic function is normal and the ejection fraction is within normal range. The Eject ion Fraction is >55%. Grossly normal wall motion. The left ventricular diastolic function and filling is normal for age. RIGHT VENTRICLE The right ventricle is normal size. There is normal right ventricular wall thickness. The right ventr icular systolic function is normal. ATRIA The left atrium is mildly dilated. The right atrium is mildly dilated. The interatrial septum is inta ct with no evidence for an atrial septal defect or patent foramen ovale as noted on 2-D or Doppler im aging. AORTIC VALVE Not well visualized. Doppler and Color Flow revealed no significant aortic regurgitation. There is no significant aortic valvular stenosis. MITRAL VALVE Not well visualized. There is no evidence of mitral valve prolapse. There is no mitral valve stenosis . Evaluation of regurgitation is inadequate. TRICUSPID VALVE Not well visualized. Doppler and Color Flow revealed trace tricuspid regurgitation with an estimated PAP of 32 mmHg. There is no tricuspid valve stenosis. PULMONIC VALVE The pulmonic valve is not visualized. Doppler and Color Flow revealed no pulmonic valvular regurgitat ion. GREAT VESSELS The aortic root is mildly enlarged. The IVC is normal in size and collapses >50% with inspiration. PERICARDIAL EFFUSION There is no evidence of significant pericardial effusion. Critical Notification Critical Value: No <Conclusion> The left ventricular systolic function is normal and the ejection fraction is within normal range. Th e Ejection Fraction is >55%. Grossly normal wall motion. Technically difficult study due to uncooperative patient. Signed by : Fuad Chao, Electronically Approved : 07/20/2018 11:22:26
[2018-07-20 11:27] LABS: CHOLESTEROL/HDL RATIO 3.3
[2018-07-20] MEDS ORDERED: IODIXANOL 320 MG/ML 100 ML VIAL. ONE (12:30)
[2018-07-20] MEDS ORDERED: LIDOCAINE WITH 8.4% SOD BICARB 3 ML DISP.SYRIN. ONE ×2 (12:30→15:54)
[2018-07-20] MEDS: ANTI-COAG MONITOR BY PHARMACY. MC PRN (12:39)
[2018-07-20] MEDS ORDERED: MIDAZOLAM HCL/PF 2 MG/2 ML VIAL. ONE (13:08)
[2018-07-20] MEDS ORDERED: HEPARIN for IV BOLUS 10,000 UNIT/10 ML VIAL. ONE (13:09)
[2018-07-20] MEDS ORDERED: fentaNYL PF VIAL 100 MCG/2 ML VIAL ONE (13:09)
[2018-07-20] MEDS ORDERED: fentaNYL PF VIAL 100 MCG/2 ML VIAL IV ONE (13:15)
[2018-07-20] MEDS ORDERED: IODIXANOL 320 MG/ML 100 ML VIAL. IART ONE (13:15)
[2018-07-20] MEDS ORDERED: LIDOCAINE WITH 8.4% SOD BICARB 3 ML DISP.SYRIN. IJ ONE (13:15)
[2018-07-20] MEDS ORDERED: MIDAZOLAM HCL/PF 2 MG/2 ML VIAL. IV ONE (13:15)
--- NOTE | 2018-07-20 13:28 | PDOC ---
PROGRESS NOTES Subjective Subjective Patient seen and examined in room. Complains of right foot pain. Objective Objective Vital Signs Date Time Temp Pulse Resp B/P (MAP) Pulse Ox O2 Delivery O2 Flow Rate FiO2 07/20/18 11:00 97.9 87 16 118/73 (88) 94 Room Air 97.9 Intake and Output 07/20/18 07:00 Intake Total 1100 ml Output Total 1200 ml Balance -100 ml Intake Oral 200 ml IV Total 900 ml Output Urine Total 1200 ml # Voids 6 Physical Exam Physical Exam Awake and alert HR irregular Non-labored respirations Right foot warm with cyanosis and discoloration in rooke boot. No open lesions or necrosis. Motor intact, some decreased sensation. Calf soft. Left foot warm, pink. Assessment Assessment Problems Medical Problems: (1) Leg pain Status: Acute (2) PVD (peripheral vascular disease) Status: Acute Plan Plan of Care 88 yo male presents with 3-4 week history of right foot pain and discoloration. He has had discoloration of the right foot for several months. The pain has been more recent. An arterial US 07/17/18 showed bilateral popliteal artery aneurysms with relatively normal distal tibial artery flow. CTA confirmed that finding today. He has cyanosis starting on the proximal foot with 3-4 second capillary refill more distally. He has some decreased sensation on the right foot. Findings are consistent with ischemia of the foot despite reasonable more proximal vessel flow. This is concerning for embolization of the distal vessels in the foot. Continue anticoagulation with heparin. Angiogram and possible thrombolysis of pedal vessels if indicated. Planned for today. Will make additional recommendations pending results. Comment Review of Relevant I have reviewed the following items mendoza (where applicable) has been applied. Labs Laboratory Tests Test 07/19/18 10:55 07/20/18 03:30 White Blood Count 7.5 x10^3/uL (4.0-11.0) 5.8 x10^3/uL (4.0-11.0) Red Blood Count 4.86 x10^6/uL (4.30-5.70) 4.22 x10^6/uL (4.30-5.70) Hemoglobin 13.4 g/dL (13.0-17.5) 11.7 g/dL (13.0-17.5) Hematocrit 41.8 % (39.0-53.0) 35.7 % (39.0-53.0) Mean Corpuscular Volume 86 fL (79-100) 85 fL (79-100) Mean Corpuscular Hemoglobin 28 pg (25-35) 28 pg (25-35) Mean Corpuscular Hemoglobin Concent 32 g/dL (31-37) 33 g/dL (31-37) Red Cell Distribution Width 16.6 % (11.5-14.5) 15.9 % (11.5-14.5) Platelet Count 166 x10^3/uL (140-400) 159 x10^3/uL (140-400) Neutrophils (%) (Auto) 79 % (31-73) Lymphocytes (%) (Auto) 12 % (24-48) Monocytes (%) (Auto) 7 % (0-9) Eosinophils (%) (Auto) 1 % (0-3) Basophils (%) (Auto) 1 % (0-3) Neutrophils # (Auto) 6.0 x10^3uL (1.8-7.7) Lymphocytes # (Auto) 0.9 x10^3/uL (1.0-4.8) Monocytes # (Auto) 0.5 x10^3/uL (0.0-1.1) Eosinophils # (Auto) 0.1 x10^3/uL (0.0-0.7) Basophils # (Auto) 0.0 x10^3/uL (0.0-0.2) Prothrombin Time 13.1 SEC (11.7-14.0) Prothromb Time International Ratio 1.0 (0.8-1.1) Activated Partial Thromboplast Time 30 SEC (24-38) Sodium Level 139 mmol/L (136-145) 140 mmol/L (136-145) Potassium Level 4.2 mmol/L (3.5-5.1) 3.9 mmol/L (3.5-5.1) Chloride Level 104 mmol/L (98-107) 105 mmol/L (98-107) Carbon Dioxide Level 25 mmol/L (21-32) 25 mmol/L (21-32) Anion Gap 10 (6-14) 10 (6-14) Blood Urea Nitrogen 16 mg/dL (8-26) 13 mg/dL (8-26) Creatinine 1.0 mg/dL (0.7-1.3) 0.8 mg/dL (0.7-1.3) Estimated GFR (Cockcroft-Gault) 70.5 91.2 BUN/Creatinine Ratio 16 (6-20) Glucose Level 91 mg/dL (70-99) 100 mg/dL (70-99) Lactic Acid Level 1.4 mmol/L (0.4-2.0) Calcium Level 9.2 mg/dL (8.5-10.1) 8.4 mg/dL (8.5-10.1) Magnesium Level 2.5 mg/dL (1.8-2.4) Total Bilirubin 0.7 mg/dL (0.2-1.0) Aspartate Amino Transf (AST/SGOT) 23 U/L (15-37) Alanine Aminotransferase (ALT/SGPT) 17 U/L (16-63) Alkaline Phosphatase 71 U/L (46-116) Creatine Kinase 153 U/L (39-308) [id number]-Type Natriuretic Peptide 1582 pg/mL (0-449) 2065 pg/mL (0-449) Total Protein 7.6 g/dL (6.4-8.2) Albumin 3.8 g/dL (3.4-5.0) Albumin/Globulin Ratio 1.0 (1.0-1.7) Heparin Anti-Xa Act, Unfractionated 0.12 IU/mL (0.30-0.70) Triglycerides Level 75 mg/dL (0-150) Cholesterol Level 163 mg/dL (0-200) LDL Cholesterol, Calculated 99 mg/dL (0-100) VLDL Cholesterol, Calculated 15 mg/dL (0-40) Non-HDL Cholesterol Calculated 114 mg/dL (0-129) HDL Cholesterol 49 mg/dL (40-60) Cholesterol/HDL Ratio 3.3 Thyroid Stimulating Hormone (TSH) 3.435 uIU/mL (0.358-3.74) Laboratory Tests Test 07/20/18 03:30 White Blood Count 5.8 x10^3/uL (4.0-11.0) Red Blood Count 4.22 x10^6/uL (4.30-5.70) Hemoglobin 11.7 g/dL (13.0-17.5) Hematocrit 35.7 % (39.0-53.0) Mean Corpuscular Volume 85 fL (79-100) Mean Corpuscular Hemoglobin 28 pg (25-35) Mean Corpuscular Hemoglobin Concent 33 g/dL (31-37) Red Cell Distribution Width 15.9 % (11.5-14.5) Platelet Count 159 x10^3/uL (140-400) Heparin Anti-Xa Act, Unfractionated 0.12 IU/mL (0.30-0.70) Sodium Level 140 mmol/L (136-145) Potassium Level 3.9 mmol/L (3.5-5.1) Chloride Level 105 mmol/L (98-107) Carbon Dioxide Level 25 mmol/L (21-32) Anion Gap 10 (6-14) Blood Urea Nitrogen 13 mg/dL (8-26) Creatinine 0.8 mg/dL (0.7-1.3) Estimated GFR (Cockcroft-Gault) 91.2 Glucose Level 100 mg/dL (70-99) Calcium Level 8.4 mg/dL (8.5-10.1) DX-[id number]-[id number]-Type Natriuretic Peptide 2065 pg/mL (0-449) Triglycerides Level 75 mg/dL (0-150) Cholesterol Level 163 mg/dL (0-200) LDL Cholesterol, Calculated 99 mg/dL (0-100) VLDL Cholesterol, Calculated 15 mg/dL (0-40) Non-HDL Cholesterol Calculated 114 mg/dL (0-129) HDL Cholesterol 49 mg/dL (40-60) Cholesterol/HDL Ratio 3.3 Thyroid Stimulating Hormone (TSH) 3.435 uIU/mL (0.358-3.74) Medications Current Medications Morphine Sulfate (Morphine Sulfate) 2 mg 1X ONCE IV Last administered on 07/19/18at 11:19; Start 07/19/18 at 11:00; Stop 07/19/18 at 11:07; Status DC Sodium Chloride 1,000 ml @ 100 mls/hr Q10H IV Last administered on 07/19/18at 11:17; Start 07/19/18 at 10:50; Stop 07/19/18 at 20:49; Status DC Iohexol (Omnipaque 350 Mg/ml) 95 ml 1X ONCE IV Last administered on 07/19/18at 11:45; Start 07/19/18 at 11:45; Stop 07/19/18 at 11:46; Status DC Morphine Sulfate (Morphine Sulfate) 4 mg 1X ONCE IV Last administered on 07/19/18at 11:54; Start 07/19/18 at 12:00; Stop 07/19/18 at 12:01; Status DC Hydromorphone HCl (Dilaudid) 1 mg 1X ONCE IV Last administered on 07/19/18at 14:25; Start 07/19/18 at 14:30; Stop 07/19/18 at 14:31; Status DC Morphine Sulfate (Morphine Sulfate) 4 mg PRN Q2HR PRN IV PAIN Last administered on 07/20/18at 11:14; Start 07/19/18 at 14:45; Stop 07/20/18 at 14:44 Heparin Sodium (Porcine) (Heparin Sodium) 6,900 unit 1X ONCE IV Last administered on 07/19/18at 21:21; Start 07/19/18 at 19:15; Stop 07/19/18 at 19:21; Status DC Heparin Sodium/ Dextrose 500 ml @ 0 mls/hr CONT PRN IV SEE I/O RECORD; Start 07/19/18 at 19:15 Heparin Sodium (Porcine) (Heparin Sodium) 2,150 unit PRN Q6HRS PRN IV FOR UFH LEVEL LESS THAN 0.2 Last administered on 07/20/18at 04:37; Start 07/19/18 at 19:15 Sodium Chloride 1,000 ml @ 50 mls/hr Q20H IV Last administered on 07/19/18at 22:00; Start 07/19/18 at 19:45 Lorazepam (Ativan Inj) 2 mg 1X ONCE IM/IV Last administered on 07/20/18at 03:30; Start 07/20/18 at 03:30; Stop 07/20/18 at 03:31; Status DC Haloperidol (Haldol) 5 mg PRN Q6HRS PRN PO AGITATION; Start 07/20/18 at 03:15 Iodixanol (Visipaque 320) 100 ml STK-MED ONCE .ROUTE ; Start 07/20/18 at 12:30; Stop 07/20/18 at 12:31; Status DC Lidocaine/Sodium Bicarbonate (Buffered Lidocaine 1%) 3 ml STK-MED ONCE .ROUTE ; Start 07/20/18 at 12:30; Stop 07/20/18 at 12:31; Status DC Heparin Sodium/ Sodium Chloride 500 ml @ As Directed STK-MED ONCE .ROUTE ; Start 07/20/18 at 12:30; Stop 07/20/18 at 12:31; Status DC Heparin Sodium/ Sodium Chloride 500 ml @ As Directed STK-MED ONCE .ROUTE ; Start 07/20/18 at 12:31; Stop 07/20/18 at 12:32; Status DC Info (Anti-Coagulation Monitoring By Pharmacy) 1 each PRN DAILY PRN MC SEE COMMENTS Last administered on 07/20/18at 12:39; Start 07/20/18 at 12:45 Midazolam HCl (Versed) 2 mg STK-MED ONCE .ROUTE ; Start 07/20/18 at 13:08; Stop 07/20/18 at 13:09; Status DC Fentanyl Citrate (Fentanyl 2ml Vial) 100 mcg STK-MED ONCE .ROUTE ; Start 07/20/18 at 13:09; Stop 07/20/18 at 13:10; Status DC Heparin Sodium (Porcine) (Heparin Sodium) 10,000 unit STK-MED ONCE .ROUTE ; Start 07/20/18 at 13:09; Stop 07/20/18 at 13:10; Status DC Heparin Sodium/ Sodium Chloride (HEPARIN for ARTERIAL LINE FLUSH) 1,000 unit 1X ONCE IART ; Start 07/20/18 at 13:15; Stop 07/20/18 at 13:20; Status DC Heparin Sodium/ Sodium Chloride (HEPARIN for ARTERIAL LINE FLUSH) 1,000 unit 1X ONCE IART ; Start 07/20/18 at 13:15; Stop 07/20/18 at 13:20; Status DC Lidocaine/Sodium Bicarbonate (Buffered Lidocaine 1%) 3 ml 1X ONCE IJ ; Start 07/20/18 at 13:15; Stop 07/20/18 at 13:20; Status DC Midazolam HCl (Versed) 2 mg 1X ONCE IV ; Start 07/20/18 at 13:15; Stop 07/20/18 at 13:20; Status DC Fentanyl Citrate (Fentanyl 2ml Vial) 100 mcg 1X ONCE IV ; Start 07/20/18 at 13:15; Stop 07/20/18 at 13:20; Status DC Iodixanol (Visipaque 320) 100 ml 1X ONCE IART ; Start 07/20/18 at 13:15; Stop 6/6/19 at 13:20; Status DC Active Scripts Active Reported Aricept (Donepezil Hcl) 10 Mg Tablet 23 Mg PO HS Gabapentin (Gabapentin) 100 Mg Capsule 100 Mg PO TID Namenda (Memantine Hcl) 10 Mg Tablet 10 Mg PO DAILY Levothyroxine Sodium 50 Mcg Tablet 1 Tab PO DAILY Vitals/I & O Vital Sign - Last 24 Hours 07/19/18 07/19/18 07/19/18 07/19/18 13:30 14:00 14:25 14:30 Pulse 64 64 82 Resp 16 16 29 16 B/P (MAP) 113/67 (82) 96/70 (79) 141/86 (104) Pulse Ox 99 100 98 O2 Delivery Room Air Room Air 07/19/18 07/19/18 07/19/18 07/19/18 15:06 16:22 19:00 19:17 Temp 97.4 97.4 Pulse 86 74 Resp 16 18 16 B/P (MAP) 138/80 (99) 123/69 (87) Pulse Ox 100 98 O2 Delivery Room Air Room Air Room Air Room Air 07/19/18 07/19/18 07/19/18 07/19/18 19:47 20:00 21:49 21:58 Temp 97.5 97.5 Pulse 60 Resp 18 16 B/P (MAP) 148/67 (94) Pulse Ox 95 O2 Delivery Room Air Room Air Room Air 07/19/18 07/20/18 07/20/18 07/20/18 23:42 03:31 03:49 04:27 Temp 98.1 98.5 98.1 98.5 Pulse 64 90 Resp 18 16 B/P (MAP) 146/71 (96) 114/72 (86) Pulse Ox 94 95 O2 Delivery Room Air Room Air Room Air Room Air 07/20/18 07/20/18 07/20/18 07:05 08:00 11:00 Temp 98.1 97.9 98.1 97.9 Pulse 86 87 Resp 16 16 B/P (MAP) 117/68 (84) 118/73 (88) Pulse Ox 94 94 O2 Delivery Room Air Room Air Room Air Intake and Output 07/19/18 07/19/18 07/20/18 15:00 23:00 07:00 Intake Total 1100 ml 0 ml Output Total 1100 ml 100 ml Balance -1100 ml 1100 ml -100 ml DOMINGA HERNDON APRN Jul 20, 2018 13:28
[2018-07-20] MEDS ORDERED: HEPARIN for IV BOLUS 10,000 UNIT/10 ML VIAL. IV ONE (14:30)
[2018-07-20] MEDS: IV NORMAL SALINE 1000ML BAG 1,000 ML IV SCH (15:45)
--- NOTE | 2018-07-20 15:54 | RAD ---
CHEST AP ONLY Clinical indications: Dyspnea. COMPARISON: None available. Findings: Bilateral interstitial lung infiltrates or bronchitis are seen. Lung infiltrates more prominent within the lung bases. Granuloma of the left midlung zone is seen. No lung mass or lung consolidation or pleural effusion is seen. No pneumothorax is evident. The heart size, pulmonary vasculature, mediastinum and both jorge are unremarkable. There is loss of the acromiohumeral space of the left shoulder which may be seen with chronic rotator cuff tear. Impression: Bilateral bronchitis or interstitial infiltrates more prominent within the lung bases. This may be acute or chronic in nature. No consolidative pneumonia is seen otherwise. Chronic rotator cuff tear of the left shoulder. Electronically signed by: Rigo Coyne MD (07/20/2018 3:51 PM) [id number]
--- NOTE | 2018-07-20 16:00 | PDOC ---
MODERATE SEDATION ASSESSMENT RISKS/ALTERNATIVES Risks/Alternatives Risks and alternatives of this type of sedation and procedure discussed with: RISK/ALTERNATIVES: Patient H & P ON CHART H & P H & P on chart and reviewed for co-morbid conditions and appropriate labs. H&P ON CHART: Yes STATUS PREG STATUS ASSESSED: Yes MEDS/ALLERGIES REVIEWED Meds/Allergies Reviewed Medications and Allergies including time and route of recently administered narcotics and sedatives. MEDS/ALLERGIES REVIEWED: Yes ASA RATING ASA RATING: IV AIRWAY ASSESSMENT Airway Assessment Airway patency, oral function limitations, presence of caps, crowns, dentures, partials, and ability to extend neck assessed. AIRWAY ASSESSMENT: Yes MALLAMPATI SCORE MALLAMPATI SCORE: II PRE-SEDATION ASSESSMENT PRE-SEDATION ASSESSMENT: Yes BELA BROWN MD Jul 20, 2018 16:00
--- NOTE | 2018-07-20 16:05 | PDOC ---
BRIEF OPERATIVE NOTE Pre-Op Diagnosis Critical limb ischemia Post-Op Diagnosis same Procedure Performed RLE arteriogram and PT and AT angioplasty, initiation of arterial thrombolysis, PICC line placement Surgeon Julio Anesthesia Type: Conscious Sedation Findings Right Popliteal artery aneurysm. Moderate to severe multifocal runoff disease with occlusion of the AT at the high calf, multiple tandem stenosis of the PT with focal subtotal occlusion just below the malleolus, and mild to moderate mul tifocal peroneal stenoses. Peroneal reconstitutes the AT at the ankle but DP is occluded as is the plantar arch and all metatarsal arteries. Following angioplasty of the PT and AT, there is improved flow to the mid calf in the AT and to the foot in the PT. Thrombolysis was initiated. Complications No immediate BELA BROWN MD Jul 20, 2018 16:05
--- NOTE | 2018-07-20 16:20 | NUR ---
Patient transferring to room 103 after procedure. Report called to Pradip MAIER in ICU. All belongings from 671 transferred down to 103.
[2018-07-20] MEDS ORDERED: ALTEPLASE 25 MG in IV NORMAL SALINE 250ML 250 ML IV SCH (16:30)
[2018-07-20] MEDS ORDERED: HEPARIN 25,000UTS/500ML PREMIX 500 ML IV PRN (17:30)
[2018-07-20] MEDS ORDERED: ALTEPLASE 25 MG in IV NORMAL SALINE 250ML 250 ML IV ONE (17:30)
--- NOTE | 2018-07-20 17:58 | CONS ---
DATE OF CONSULTATION: 07/19/2018 CHIEF COMPLAINT: Right foot pain. HISTORY OF PRESENT ILLNESS: The patient is an 88-year-old male with history of hypothyroidism, colon cancer, and confusion, who is admitted with a several month history of discoloration of his right foot and a 3-4 week history of worsening pain in his right foot. He denies any specific injury to his foot. He presented to his primary care physician a couple of days ago. At that time, he had an arterial ultrasound that showed bilateral popliteal artery aneurysms. There was flow through both aneurysms as well as relatively preserved arterial flow through his tibial vessels. He then presented to the Emergency Room today with worsening pain and discoloration. A CT angiogram confirmed the area of popliteal artery aneurysms as well as flow in his right tibial vessels. He denies any family history of aneurysms. PAST MEDICAL HISTORY: 1. Colon cancer, status post resection. 2. Hypothyroidism. 3. Dementia. PAST SURGICAL HISTORY: 1. Colectomy in the 1970s. 2. Right knee surgery x 2. MEDICATIONS: On admission include levothyroxine, donepezil, memantine. ALLERGIES: PENICILLIN. SOCIAL HISTORY: He has a very remote history of smoking, but none for at least 20 years. He drinks approximately 2 beers a night. FAMILY HISTORY: Noncontributory. REVIEW OF SYSTEMS: No recent fevers, chills, chest pain or shortness of breath. No abdominal or back pain. He reports right foot pain for the last 3 weeks as detailed above. He denies any lower extremity swelling. He denies any unilateral weakness, numbness, visual loss, speech changes or other TIA or stroke symptoms. PHYSICAL EXAMINATION: GENERAL: This is an elderly male, in no acute distress. VITAL SIGNS: Temperature 98.2, pulse 86, blood pressure 138/80, respirations 16. NECK: Supple, no lymphadenopathy. CARDIOVASCULAR: Irregularly irregular rhythm. ABDOMEN: Soft, nontender, nondistended. No palpable masses. EXTREMITIES: He has palpable radial and femoral pulses bilaterally. He has prominent popliteal pulses, greater on the right than on the left consistent with his popliteal aneurysms. There is no significant discoloration or skin changes in his left lower leg or foot. He has 2 to 3-second capillary refills in his left foot. He has abrupt cyanotic changes in his proximal right foot with delayed capillary refill starting from the proximal foot distally. He has at least 3 to 4-second capillary refill in his toes on the right. He has no areas of skin breakdown. He does have some decreased sensation in his foot and toes. LABORATORY DATA: Significant for white blood cells 7.5, hemoglobin 13.4, platelet count of 166. INR 1.0, PTT of 30. Sodium 139, potassium 4.2, BUN 16, creatinine 1.0, glucose 91. BNP 1582. Venous duplex showed no evidence of deep venous thrombosis. Arterial duplex as noted above showed bilateral popliteal artery aneurysms. There are normal, biphasic Doppler waveforms through the tibial vessels bilaterally. CT angiogram showed some mild ectasia of his common iliac arteries bilaterally, but no evidence of significant aneurysmal degeneration. He has a 5 cm right popliteal artery aneurysm as well as a somewhat smaller left popliteal artery aneurysm. There is poor filling of contrast starting around the left knee that may be due to washout. Contrast is filling the flow lumen through the right popliteal artery aneurysm as well as right tibial vessels down to the level of the ankle. EKG showed evidence of atrial fibrillation. IMPRESSION: 1. Right foot ischemia. The ischemia is likely due to distal emboli causing small vessel occlusions in the right foot. Emboli may arise from the popliteal aneurysm or due to his atrial fibrillation. 2. Bilateral popliteal artery aneurysms. 3. Dementia. 4. Hypothyroidism. 5. Atrial fibrillation. RECOMMENDATIONS: 1. Systemic anticoagulation. We will start a heparin infusion. 2. Protective measures to the right foot. We will apply Rooke boot to offload as well as keeping the foot was warm as possible. 3. I discussed options with him as well as his [id number] on the phone and family friends at the bedside. The options of care would be comfort measures with anticoagulation alone or option of intervention. Intervention would start with a diagnostic angiogram with possible thrombolysis of his pedal vessels. He would also likely benefit from intervention for the popliteal aneurysm. I discussed either stent graft placement or surgical reconstruction. This would be determined by angiogram findings as well as other cardiac workup to determine risk stratification. 4. Echocardiogram to evaluate for heart function. 5. Cardiology evaluation for newly diagnosed atrial fibrillation. 6. Please note that after discussing above workup and treatment options, he elected to proceed with angiogram as well as possible thrombolysis. He was less anxious to proceed with any surgical intervention at this time. We will reassess once the angiogram is complete. JESSCIA GEORGE MD DR: SAYRA/patricia JOB#: [id number] / [id number] LIZBETH Borrero RICHARD MD
--- NOTE | 2018-07-20 18:01 | RAD ---
Procedure: Upper extremity PICC line placement Clinical Indication: 88-year-old requiring central venous access Sedation: Local anesthesia only was provided Antibiotics: None Fluoro Time: Less than 1 minute. Images: 1 Contrast: None Sterility: All elements of maximal sterile barrier technique including the use of a cap, mask, sterile gown, sterile gloves, large sterile sheet, appropriate hand hygiene, and 2% chlorhexidine for cutaneous antisepsis (or acceptable alternative antiseptic per current guidelines) were followed for this procedure. Consent: The procedure was explained in its entirety to the patient or the patients designated corporate representative by a member of the treatment team, including a discussion of the risks, benefits and commonly accepted alternatives to the procedure, as well as the expected consequences of no therapy whatsoever. Discussion of the risks included, but was not limited to, those that are most frequent and those that are rare but possibly severe or life-threatening, as well as the possibility of unforeseen complications. Technique and Findings: Following informed consent, the patient was prepped and draped in the usual sterile fashion. Ultrasound interrogation of the right arm revealed patency and compressibility of the right brachial vein. A hard copy ultrasound image was recorded. 1% Lidocaine was used to achieve local anesthesia and a 21-gauge micropuncture needle was used to gain access to the targeted vein. The needle was exchanged over wire for a 5 Portuguese peel-away sheath which was used to deploy a PICC line under fluoroscopic guidance such that the distal tip resided at the cavoatrial junction. The catheter flushed and aspirated with ease and was sutured to the skin. Complications: No immediate Impression: 1. Ultrasound guided PICC line placement as described.
[2018-07-20] MEDS: HALOPERIDOL 5 MG TABLET. PO PRN (18:16)
[2018-07-20] MEDS ORDERED: HALOPERIDOL LACTATE 5 MG/ML VIAL. IV ONE (22:00)
--- NOTE | 2018-07-20 23:06 | NUR ---
The writer technical publications called and spoke with Dr. Kim r/t pt oozing blood around urinary catheter, R groin arterial sheath, R upper arm PICC line. The physician gave no new orders at this time. stated "I am not worried about this right now. You can change the dressing to R groin as needed throughout the night. If the areas continuously bleed, or any other parameters are met in the free text nursing order, please call back." Will continue to monitor.
[2018-07-21] VITALS (21 sets, daily range): BP systolic 73–141; BP diastolic 65–91
[2018-07-21 00:20] LABS: HEMATOCRIT 37.3 % (39.0-53.0); HEMOGLOBIN 12.3 g/dL (13.0-17.5); RED BLOOD COUNT 4.43 x10^6/uL (4.30-5.70); RED CELL DISTRIBUTION WIDTH 15.5 % (11.5-14.5); WHITE BLOOD COUNT 6.5 x10^3/uL (4.0-11.0)
[2018-07-21 00:30] LABS: PROTHROMBIN TIME PATIENT 14.2 SEC (11.7-14.0)
[2018-07-21] MEDS: MORPHINE SULFATE 4 MG/ML VIAL. IV PRN ×3 (02:04→17:20)
[2018-07-21 06:33] LABS: HEMATOCRIT 36.8 % (39.0-53.0); HEMOGLOBIN 12.2 g/dL (13.0-17.5); RED BLOOD COUNT 4.35 x10^6/uL (4.30-5.70); RED CELL DISTRIBUTION WIDTH 16.2 % (11.5-14.5); WHITE BLOOD COUNT 6.2 x10^3/uL (4.0-11.0)
[2018-07-21 06:35] LABS: CALCIUM 8.5 mg/dL (8.5-10.1); CREATININE 0.8 mg/dL (0.7-1.3); GFR 91.2; POTASSIUM 3.6 mmol/L (3.5-5.1)
--- NOTE | 2018-07-21 09:22 | RAD ---
Procedure: Right lower extremity diagnostic arteriogram, and plasty the right posterior tibial artery, and plasty the right anterior tibial artery, and initiation of arterial thrombolysis. Clinical Indication: 88-year-old with ischemic right foot, known popliteal artery aneurysm. Sedation: Conscious sedation was administered with a total intraprocedural [id number] time of 165 minutes. The patient was monitored by a qualified independent observer throughout the time of sedation. Please refer to the medical record for exact doses of medications utilized to achieve moderate sedation. Antibiotics: None Exposure: Kerma-Area Product: 43 Gycm2 Contrast: 67 cc of Visipaque 320 contrast media Sterility: All elements of maximal sterile barrier technique including the use of a cap, mask, sterile gown, sterile gloves, large sterile sheet, appropriate hand hygiene, and 2% chlorhexidine for cutaneous antisepsis (or acceptable alternative antiseptic per current guidelines) were followed for this procedure. If ultrasound guidance was utilized, sterile ultrasound techniques were followed including use of a sterile probe cover. Consent: The procedure was explained in its entirety to the patient or the patients designated guest relations representative by a member of the treatment team, including a discussion of the risks, benefits and commonly accepted alternatives to the procedure, as well as the expected consequences of no therapy whatsoever. Discussion of the risks included, but was not limited to, those that are most frequent and those that are rare but possibly severe or life-threatening, as well as the possibility of unforeseen complications. Technique and Findings: Following informed consent, the patient was prepped and draped in usual sterile fashion. Ultrasound interrogation of the right groin revealed patency of the right common femoral artery, with circumferential calcification. A Hardcopy ultrasound image was recorded. As a 21-gauge micropuncture needle was used to gain access to this vessel and antegrade fashion. The needle was exchanged over wire for 5 [place]an sheath. Contrast angiography of the right leg was then performed. The profunda femoral artery is widely patent. There is mild multifocal atherosclerosis throughout a patent superficial femoral artery, whose diameter is robust. Popliteal artery is widely patent as well. Within the popliteal artery, there is a fusiform aneurysm, which terminates just above the knee joint. Distal popliteal artery is patent with mild atherosclerosis. There is bulky en face atherosclerosis stenosis at the origin of the right anterior tibial artery, with moderate disease throughout its proximal distribution. This artery tapers to occlusion in the high calf. The tibioperoneal trunk is normal for moderate multifocal disease but is widely patent. The posterior tibial artery is notable for several areas of multifocal atherosclerosis with several areas of moderate to severe stenosis both proximal and distally, with focal area of subtotal occlusion just beyond the medial malleolus. There is perfusion to the posterior tibial artery of the hindfoot, with poor flow to the midfoot and beyond. Cutaneous branches are perfused, however the calcaneal arteries are not evident. The peroneal artery demonstrates moderate multifocal disease throughout its distribution but remains patent to the level the ankle, where it contributes antegrade perfusion to both the posterior tibial artery as well as reconstituting the distal anterior tibial artery. There is abrupt occlusion of the dorsalis pedis artery. Patient was then administered heparin intravenously, and an angled catheter was advanced into the anterior tibial artery proximally. Selective angiography was performed. A wire was carefully advanced beyond the proximal occlusion into the artery at the distal calf, but cannot be advanced further despite multiple catheter wire combinations and techniques. Angioplasty was performed using a 2.5 mm x 10 mm angioplasty balloon throughout the recanalized segment of the anterior tibial artery. Repeat angiography demonstrated improved angiographic appearance, with persistent distal occlusion. The angled catheter and wire were then advanced into the posterior tibial artery all the way to the level of the hindfoot. Angioplasty this entire vessel using a 2.5 mm x 10 mm angioplasty balloon was performed. This resulted in excellent angiographic appearance with brisk flow. Multiple catheter and wire combinations were used to attempt to cross the short focal region of subtotal or total occlusion just distal to the medial malleolus, however all efforts were unsuccessful in this regard. Nevertheless, angiography demonstrates improved flow to the posterior tibial artery of the hindfoot and midfoot following angioplasty of the entire posterior tibial artery of the leg. An angled catheter was then advanced into the peroneal artery and selective angiography was performed demonstrating good patency and flow within this vessel. An end hole infusion catheter was then advanced distally in the peroneal artery and TPA thrombolysis was initiated. Complications: No immediate Impression: 1. Angiography the right lower extremity demonstrate a large fusiform aneurysm of the popliteal artery, with robust caliber proximal and distal [place]hue[place] vessel, which may limit endovascular treatment options. 2. Occlusion of the right proximal anterior tibial artery. Portions of the mid vessel were successfully recanalized, however access beyond the occluded distal segment could not be achieved. 3. Long segment multifocal moderate to severe disease throughout the posterior tibial artery of the leg, significantly improved following angioplasty. There is a persistent focal subtotal or total occlusion just distal to the medial malleolus. 4. Patent peroneal artery which contributes to the posterior tibial artery flow and reconstitutes the distal anterior tibial artery. 5. Absence of flow within the mid and forefoot, with abrupt occlusion of the reconstituted dorsalis pedis artery proximally, and occlusion of the posterior tibial artery at the mid foot. This may be embolic in nature. Flow to the posterior tibial artery of the midfoot was improved following and posterior the posterior tibial artery. This gentleman will be brought back for second look and additional interventional attempts following overnight thrombolysis.
[2018-07-21] MEDS: IV NORMAL SALINE 1000ML BAG 1,000 ML IV SCH (11:45)
[2018-07-21] MEDS ORDERED: IODIXANOL 320 MG/ML 100 ML VIAL. ONE ×2 (12:29→14:46)
[2018-07-21 12:31] LABS: HEMATOCRIT 36.9 % (39.0-53.0); HEMOGLOBIN 12.1 g/dL (13.0-17.5); RED BLOOD COUNT 4.38 x10^6/uL (4.30-5.70); RED CELL DISTRIBUTION WIDTH 15.9 % (11.5-14.5); WHITE BLOOD COUNT 6.4 x10^3/uL (4.0-11.0)
[2018-07-21] MEDS ORDERED: LIDOCAINE WITH 8.4% SOD BICARB 3 ML DISP.SYRIN. ONE ×2 (12:34→12:36)
[2018-07-21] MEDS ORDERED: fentaNYL PF VIAL 100 MCG/2 ML VIAL ONE ×2 (12:36→14:52)
[2018-07-21] MEDS ORDERED: MIDAZOLAM HCL/PF 2 MG/2 ML VIAL. ONE ×2 (12:36→14:52)
[2018-07-21 12:41] LABS: PROTHROMBIN TIME PATIENT 14.2 SEC (11.7-14.0)
--- NOTE | 2018-07-21 13:08 | PDOC ---
Provider Note Provider Note Vascular Patient leaving for IR A[facility] with possible intervention s/p AARO 07/20/[address] Kim for Right Popliteal artery aneurysm. Moderate to severe multifocal runoff disease with occlusion of the AT at the high calf, multiple tandem stenosis of the PT with focal subtotal occlusion just below the malleolus, and mild to moderate multifocal peroneal stenoses. Peroneal reconstitutes the AT at the ankle but DP is occluded as is the plantar arch and all metatarsal arteries. Following angioplasty of the PT and AT, there is improved flow to the mid calf in the AT and to the foot in the PT. Thrombolysis was initiated. Will make additional recommendations pending results. DOMINGA HERNDON APRN Jul 21, 2018 13:08
[2018-07-21] MEDS ORDERED: HEPARIN for IV BOLUS 10,000 UNIT/10 ML VIAL. ONE (13:28)
[2018-07-21] MEDS ORDERED: HEPARIN for IV BOLUS 10,000 UNIT/10 ML VIAL. IV ONE ×2 (13:30→16:45)
--- NOTE | 2018-07-21 13:39 | NUR ---
SS following for discharge planning. SS reviewed pt's chart. Pt is from home and is currently on room air. No discharge needs noted at this time. SS will continue to follow for discharge planning. Pt's RN notified.
[2018-07-21] MEDS ORDERED: fentaNYL PF VIAL 100 MCG/2 ML VIAL IV ONE (13:45)
[2018-07-21] MEDS ORDERED: MIDAZOLAM HCL/PF 2 MG/2 ML VIAL. IV ONE (13:45)
[2018-07-21] MEDS ORDERED: IODIXANOL 320 MG/ML 100 ML VIAL. IART ONE (13:45)
--- NOTE | 2018-07-21 14:00 | PDOC ---
PROGRESS NOTES Subjective Subjective Somnolent Objective Objective Vital Signs Date Time Temp Pulse Resp B/P (MAP) Pulse Ox O2 Delivery O2 Flow Rate FiO2 07/21/18 12:00 Room Air 07/21/18 12:00 98.9 86 15 137/87 (104) 99 98.9 07/21/18 08:22 2.0 Intake and Output 07/21/18 07:00 Intake Total 791.40 ml Output Total 2810 ml Balance -2018.60 ml Intake Oral 180 ml IV Total 611.40 ml Output Urine Total 2810 ml Physical Exam Abdomen: Soft, No tenderness Heart: Other (HR irregular) Extremities: Other (1+ right foot edema. Rt rook boot) General: No acute distress HEENT: Atraumatic, Mucous membr. moist/pink Lungs: Clear to auscultation Neuro: Normal speech Psych/Mental Status: Other (anxious ) Skin: Other (cyanosis of right foot. ) Assessment Assessment 1. Critical Limb ischemia; suspected embolic. Bilateral popliteal artery aneurysms, s/p [employer] to AT/PT yesterday and currently on tPA and Hep gtt. Vascular following 2. AFIB, newly diagnosed, rate controlled. Start Eliquis prior to DC for stroke prophylaxis. LV function normal on 2D echo. 3. Hypothyroidism; on replacement therapy Plan Plan of Care Problems Medical Problems: (1) Leg pain Status: Acute (2) PVD (peripheral vascular disease) Status: Acute Comment Review of Relevant I have reviewed the following items mendoza (where applicable) has been applied. Labs Laboratory Tests Test 07/20/18 15:15 07/21/18 00:05 07/21/18 06:05 07/21/18 12:10 Fibrinogen 476 mg/dL (200-440) 485 mg/dL (200-440) 505 mg/dL (200-440) 531 mg/dL (200-440) White Blood Count 6.5 x10^3/uL (4.0-11.0) 6.2 x10^3/uL (4.0-11.0) 6.4 x10^3/uL (4.0-11.0) Red Blood Count 4.43 x10^6/uL (4.30-5.70) 4.35 x10^6/uL (4.30-5.70) 4.38 x10^6/uL (4.30-5.70) Hemoglobin 12.3 g/dL (13.0-17.5) 12.2 g/dL (13.0-17.5) 12.1 g/dL (13.0-17.5) Hematocrit 37.3 % (39.0-53.0) 36.8 % (39.0-53.0) 36.9 % (39.0-53.0) Mean Corpuscular Volume 84 fL (79-100) 85 fL (79-100) 84 fL (79-100) Mean Corpuscular Hemoglobin 28 pg (25-35) 28 pg (25-35) 28 pg (25-35) Mean Corpuscular Hemoglobin Concent 33 g/dL (31-37) 33 g/dL (31-37) 33 g/dL (31-37) Red Cell Distribution Width 15.5 % (11.5-14.5) 16.2 % (11.5-14.5) 15.9 % (11.5-14.5) Platelet Count 153 x10^3/uL (140-400) 154 x10^3/uL (140-400) 147 x10^3/uL (140-400) Prothrombin Time 14.2 SEC (11.7-14.0) 14.0 SEC (11.7-14.0) 14.2 SEC (11.7-14.0) Prothromb Time International Ratio 1.1 (0.8-1.1) 1.1 (0.8-1.1) 1.1 (0.8-1.1) Activated Partial Thromboplast Time 40 SEC (24-38) 42 SEC (24-38) 38 SEC (24-38) Sodium Level 139 mmol/L (136-145) Potassium Level 3.6 mmol/L (3.5-5.1) Chloride Level 103 mmol/L (98-107) Carbon Dioxide Level 29 mmol/L (21-32) Anion Gap 7 (6-14) Blood Urea Nitrogen 10 mg/dL (8-26) Creatinine 0.8 mg/dL (0.7-1.3) Estimated GFR (Cockcroft-Gault) 91.2 Glucose Level 89 mg/dL (70-99) Calcium Level 8.5 mg/dL (8.5-10.1) Medications Current Medications Alteplase, Recombinant 25 mg/ Sodium Chloride 250 ml @ 10 mls/hr 1X ONCE IV Last administered on 07/20/18at 18:16; Start 07/20/18 at 17:30; Stop 07/21/18 at 18:29 Alteplase, Recombinant 25 mg/ Sodium Chloride 250 ml @ 10 mls/hr Q25H IV ; Start 07/20/18 at 16:30; Stop 07/20/18 at 17:22; Status DC Fentanyl Citrate (Fentanyl 2ml Vial) 100 mcg 1X ONCE IV ; Start 07/21/18 at 13:45; Stop 07/21/18 at 13:46; Status DC Fentanyl Citrate (Fentanyl 2ml Vial) 100 mcg STK-MED ONCE .ROUTE ; Start 07/21/18 at 12:36; Stop 07/21/18 at 12:37; Status DC Haloperidol Lactate (Haldol Inj) 2 mg 1X ONCE IV Last administered on 07/20/18at 21:25; Start 07/20/18 at 22:00; Stop 07/20/18 at 22:01; Status DC Heparin Sodium (Porcine) (Heparin Sodium) 5,000 unit 1X ONCE IV Last administered on 07/20/18at 14:30; Start 07/20/18 at 14:30; Stop 07/20/18 at 14:32; Status DC Heparin Sodium (Porcine) (Heparin Sodium) 5,000 unit 1X ONCE IV ; Start 07/21/18 at 13:30; Stop 07/21/18 at 13:40; Status DC Heparin Sodium (Porcine) (Heparin Sodium) 10,000 unit STK-MED ONCE .ROUTE ; Start 07/21/18 at 13:28; Stop 07/21/18 at 13:29; Status DC Heparin Sodium/ Dextrose 500 ml @ 0 mls/hr CONT PRN IV SEE I/O RECORD Last administered on 07/20/18at 18:15; Start 07/20/18 at 17:30 Heparin Sodium/ Sodium Chloride 500 ml @ As Directed STK-MED ONCE .ROUTE ; Start 07/20/18 at 16:27; Stop 07/20/18 at 16:28; Status DC Heparin Sodium/ Sodium Chloride 500 ml @ As Directed STK-MED ONCE .ROUTE ; Start 07/21/18 at 12:29; Stop 07/21/18 at 12:30; Status DC Iodixanol (Visipaque 320) 100 ml 1X ONCE IART ; Start 07/21/18 at 13:45; Stop 07/21/18 at 13:46; Status DC Iodixanol (Visipaque 320) 100 ml STK-MED ONCE .ROUTE ; Start 07/21/18 at 12:29; Stop 07/21/18 at 12:30; Status DC Lidocaine/Sodium Bicarbonate (Buffered Lidocaine 1%) 3 ml STK-MED ONCE .ROUTE ; Start 07/20/18 at 15:54; Stop 07/20/18 at 15:55; Status DC Lidocaine/Sodium Bicarbonate (Buffered Lidocaine 1%) 3 ml STK-MED ONCE .ROUTE ; Start 07/21/18 at 12:34; Stop 07/21/18 at 12:35; Status DC Lidocaine/Sodium Bicarbonate (Buffered Lidocaine 1%) 3 ml STK-MED ONCE .ROUTE ; Start 07/21/18 at 12:36; Stop 07/21/18 at 12:37; Status DC Lorazepam (Ativan Inj) 0.25 mg PRN Q4HRS PRN IV ANXIETY / AGITATION Last administered on 07/21/18at 07:30; Start 07/20/18 at 21:30 Midazolam HCl (Versed) 2 mg 1X ONCE IV ; Start 07/21/18 at 13:45; Stop 07/21/18 at 13:46; Status DC Midazolam HCl (Versed) 2 mg STK-MED ONCE .ROUTE ; Start 07/21/18 at 12:36; Stop 07/21/18 at 12:37; Status DC Morphine Sulfate (Morphine Sulfate) 4 mg PRN Q2HR PRN IV PAIN Last administered on 07/21/18at 07:29; Start 07/20/18 at 21:00 Vitals/I & O Vital Sign - Last 24 Hours 07/20/18 07/20/18 07/20/18 07/20/18 16:36 18:34 19:00 20:00 Pulse 83 78 Resp 20 14 B/P (MAP) 138/82 (100) Pulse Ox 99 99 100 O2 Delivery Nasal Cannula Room Air Nasal Cannula Room Air O2 Flow Rate 2.0 2.0 2.0 07/20/18 07/20/18 07/20/18 07/20/18 20:00 21:00 21:07 22:00 Temp 98.0 98.0 Pulse 92 91 89 Resp 18 16 12 16 B/P (MAP) 137/75 (95) 120/70 (87) 137/71 (93) Pulse Ox 97 100 100 100 O2 Delivery Room Air Room Air Room Air Room Air 07/20/18 07/20/18 07/21/18 07/21/18 23:00 23:55 00:00 01:00 Temp 97.9 97.9 Pulse 87 103 89 Resp 18 16 14 B/P (MAP) 114/76 (89) 128/71 (90) 102/69 (80) Pulse Ox 97 100 100 O2 Delivery Room Air Room Air Room Air Room Air 07/21/18 07/21/18 07/21/18 07/21/18 02:00 02:04 02:34 03:00 Pulse 103 83 Resp 20 16 16 16 B/P (MAP) 113/68 (83) 113/73 (86) Pulse Ox 100 100 100 O2 Delivery Room Air Room Air Room Air 07/21/18 07/21/18 07/21/18 07/21/18 04:00 04:00 04:00 05:00 Temp 97.8 97.8 Pulse 96 71 Resp 16 14 B/P (MAP) 113/73 (86) 114/65 (81) Pulse Ox 100 100 O2 Delivery Room Air Room Air Room Air 07/21/18 07/21/18 07/21/18 07/21/18 06:00 07:00 07:29 08:00 Temp 98.0 98.0 Pulse 81 81 82 Resp 16 16 16 B/P (MAP) 110/74 (86) 141/74 (96) 109/71 (84) Pulse Ox 100 100 100 100 O2 Delivery Room Air Room Air Room Air Room Air O2 Flow Rate 2.0 07/21/18 07/21/18 07/21/18 07/21/18 08:00 08:22 09:00 10:01 Pulse 81 81 Resp 16 16 B/P (MAP) 106/74 (85) 73/74 (74) Pulse Ox 100 100 100 O2 Delivery Room Air Room Air Room Air Room Air O2 Flow Rate 2.0 07/21/18 07/21/18 07/21/18 11:11 12:00 12:00 Temp 98.9 98.9 Pulse 81 86 Resp 16 15 B/P (MAP) 114/74 (87) 137/87 (104) Pulse Ox 100 99 O2 Delivery Room Air Room Air Room Air Intake and Output 07/20/18 07/20/18 07/21/18 15:00 23:00 07:00 Intake Total 0 ml 180 ml 611.40 ml Output Total 975 ml 1170 ml 665 ml Balance -975 ml -990 ml -53.60 ml BENJI ESCOBAR MD Jul 21, 2018 14:00
[2018-07-21] MEDS ORDERED: LIDOCAINE WITH 8.4% SOD BICARB 3 ML DISP.SYRIN. IJ ONE (14:45)
[2018-07-21] MEDS: ANTI-COAG MONITOR BY PHARMACY. MC PRN (14:55)
[2018-07-21] MEDS ORDERED: ALTEPLASE 2MG VIAL 10 MG in IV NORMAL SALINE 100ML 100 ML IV ONE (15:00)
[2018-07-21] MEDS ORDERED: VANCOMYCIN 1GM IVPB FOR OMNI 250 ML ONE (15:08)
[2018-07-21] MEDS ORDERED: NITROGLYCERIN 200 MCG/2 ML SYRINGE FOR CATH/VASC LAB. IART ONE (15:15)
[2018-07-21] MEDS ORDERED: VANCOMYCIN 1GM IVPB FOR OMNI 250 ML IV ONE (15:15)
--- NOTE | 2018-07-21 15:35 | PDOC ---
PROGRESS NOTES Chief Complaint Chief Complaint arterial occlusion, embolic. on TPA, Right Popliteal artery aneurysm. 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 Hypothyroidism PVD cognitive decline History of Present Illness History of Present Illness IR to perform possible embolectomy today discussed with Dr. Stokes and patients family The plan is to getting to interventional radiology today to catheterize that right leg and consider TPA therapy to dissolve probable clots may eventually need to have surgery pt is DNR Vitals Vitals Vital Signs Date Time Temp Pulse Resp B/P (MAP) Pulse Ox O2 Delivery O2 Flow Rate FiO2 07/21/18 12:00 Room Air 07/21/18 12:00 98.9 86 15 137/87 (104) 99 98.9 07/21/18 08:22 2.0 Physical Exam General: Alert, Cooperative, No acute distress Heart: Regular rate, Normal S1, Other (HR irregular) Lungs: Clear, Wheezing Abdomen: Soft, No tenderness Extremities: Other (1+ right foot edema. Rt rook boot) Skin: Other (cyanosis of right foot. ) Labs LABS Laboratory Tests Test 07/21/18 00:05 07/21/18 06:05 07/21/18 12:10 White Blood Count 6.5 x10^3/uL (4.0-11.0) 6.2 x10^3/uL (4.0-11.0) 6.4 x10^3/uL (4.0-11.0) Red Blood Count 4.43 x10^6/uL (4.30-5.70) 4.35 x10^6/uL (4.30-5.70) 4.38 x10^6/uL (4.30-5.70) Hemoglobin 12.3 g/dL (13.0-17.5) 12.2 g/dL (13.0-17.5) 12.1 g/dL (13.0-17.5) Hematocrit 37.3 % (39.0-53.0) 36.8 % (39.0-53.0) 36.9 % (39.0-53.0) Mean Corpuscular Volume 84 fL (79-100) 85 fL (79-100) 84 fL (79-100) Mean Corpuscular Hemoglobin 28 pg (25-35) 28 pg (25-35) 28 pg (25-35) Mean Corpuscular Hemoglobin Concent 33 g/dL (31-37) 33 g/dL (31-37) 33 g/dL (31-37) Red Cell Distribution Width 15.5 % (11.5-14.5) 16.2 % (11.5-14.5) 15.9 % (11.5-14.5) Platelet Count 153 x10^3/uL (140-400) 154 x10^3/uL (140-400) 147 x10^3/uL (140-400) Prothrombin Time 14.2 SEC (11.7-14.0) 14.0 SEC (11.7-14.0) 14.2 SEC (11.7-14.0) Prothromb Time International Ratio 1.1 (0.8-1.1) 1.1 (0.8-1.1) 1.1 (0.8-1.1) Activated Partial Thromboplast Time 40 SEC (24-38) 42 SEC (24-38) 38 SEC (24-38) Fibrinogen 485 mg/dL (200-440) 505 mg/dL (200-440) 531 mg/dL (200-440) Sodium Level 139 mmol/L (136-145) Potassium Level 3.6 mmol/L (3.5-5.1) Chloride Level 103 mmol/L (98-107) Carbon Dioxide Level 29 mmol/L (21-32) Anion Gap 7 (6-14) Blood Urea Nitrogen 10 mg/dL (8-26) Creatinine 0.8 mg/dL (0.7-1.3) Estimated GFR (Cockcroft-Gault) 91.2 Glucose Level 89 mg/dL (70-99) Calcium Level 8.5 mg/dL (8.5-10.1) Assessment and Plan Assessmemt and Plan Problems Medical Problems: (1) Leg pain Status: Acute (2) PVD (peripheral vascular disease) Status: Acute Comment Review of Relevant I have reviewed the following items mendoza (where applicable) has been applied. Labs Laboratory Tests Test 07/20/18 03:30 07/20/18 15:15 07/21/18 00:05 07/21/18 06:05 White Blood Count 5.8 x10^3/uL (4.0-11.0) 6.5 x10^3/uL (4.0-11.0) 6.2 x10^3/uL (4.0-11.0) Red Blood Count 4.22 x10^6/uL (4.30-5.70) 4.43 x10^6/uL (4.30-5.70) 4.35 x10^6/uL (4.30-5.70) Hemoglobin 11.7 g/dL (13.0-17.5) 12.3 g/dL (13.0-17.5) 12.2 g/dL (13.0-17.5) Hematocrit 35.7 % (39.0-53.0) 37.3 % (39.0-53.0) 36.8 % (39.0-53.0) Mean Corpuscular Volume 85 fL (79-100) 84 fL (79-100) 85 fL (79-100) Mean Corpuscular Hemoglobin 28 pg (25-35) 28 pg (25-35) 28 pg (25-35) Mean Corpuscular Hemoglobin Concent 33 g/dL (31-37) 33 g/dL (31-37) 33 g/dL (31-37) Red Cell Distribution Width 15.9 % (11.5-14.5) 15.5 % (11.5-14.5) 16.2 % (11.5-14.5) Platelet Count 159 x10^3/uL (140-400) 153 x10^3/uL (140-400) 154 x10^3/uL (140-400) Heparin Anti-Xa Act, Unfractionated 0.12 IU/mL (0.30-0.70) Sodium Level 140 mmol/L (136-145) 139 mmol/L (136-145) Potassium Level 3.9 mmol/L (3.5-5.1) 3.6 mmol/L (3.5-5.1) Chloride Level 105 mmol/L (98-107) 103 mmol/L (98-107) Carbon Dioxide Level 25 mmol/L (21-32) 29 mmol/L (21-32) Anion Gap 10 (6-14) 7 (6-14) Blood Urea Nitrogen 13 mg/dL (8-26) 10 mg/dL (8-26) Creatinine 0.8 mg/dL (0.7-1.3) 0.8 mg/dL (0.7-1.3) Estimated GFR (Cockcroft-Gault) 91.2 91.2 Glucose Level 100 mg/dL (70-99) 89 mg/dL (70-99) Calcium Level 8.4 mg/dL (8.5-10.1) 8.5 mg/dL (8.5-10.1) YX-Kea-I-Type Natriuretic Peptide 2065 pg/mL (0-449) Triglycerides Level 75 mg/dL (0-150) Cholesterol Level 163 mg/dL (0-200) LDL Cholesterol, Calculated 99 mg/dL (0-100) VLDL Cholesterol, Calculated 15 mg/dL (0-40) Non-HDL Cholesterol Calculated 114 mg/dL (0-129) HDL Cholesterol 49 mg/dL (40-60) Cholesterol/HDL Ratio 3.3 Thyroid Stimulating Hormone (TSH) 3.435 uIU/mL (0.358-3.74) Fibrinogen 476 mg/dL (200-440) 485 mg/dL (200-440) 505 mg/dL (200-440) Prothrombin Time 14.2 SEC (11.7-14.0) 14.0 SEC (11.7-14.0) Prothromb Time International Ratio 1.1 (0.8-1.1) 1.1 (0.8-1.1) Activated Partial Thromboplast Time 40 SEC (24-38) 42 SEC (24-38) Test 07/21/18 12:10 White Blood Count 6.4 x10^3/uL (4.0-11.0) Red Blood Count 4.38 x10^6/uL (4.30-5.70) Hemoglobin 12.1 g/dL (13.0-17.5) Hematocrit 36.9 % (39.0-53.0) Mean Corpuscular Volume 84 fL (79-100) Mean Corpuscular Hemoglobin 28 pg (25-35) Mean Corpuscular Hemoglobin Concent 33 g/dL (31-37) Red Cell Distribution Width 15.9 % (11.5-14.5) Platelet Count 147 x10^3/uL (140-400) Prothrombin Time 14.2 SEC (11.7-14.0) Prothromb Time International Ratio 1.1 (0.8-1.1) Activated Partial Thromboplast Time 38 SEC (24-38) Fibrinogen 531 mg/dL (200-440) Laboratory Tests Test 07/21/18 00:05 07/21/18 06:05 07/21/18 12:10 White Blood Count 6.5 x10^3/uL (4.0-11.0) 6.2 x10^3/uL (4.0-11.0) 6.4 x10^3/uL (4.0-11.0) Red Blood Count 4.43 x10^6/uL (4.30-5.70) 4.35 x10^6/uL (4.30-5.70) 4.38 x10^6/uL (4.30-5.70) Hemoglobin 12.3 g/dL (13.0-17.5) 12.2 g/dL (13.0-17.5) 12.1 g/dL (13.0-17.5) Hematocrit 37.3 % (39.0-53.0) 36.8 % (39.0-53.0) 36.9 % (39.0-53.0) Mean Corpuscular Volume 84 fL (79-100) 85 fL (79-100) 84 fL (79-100) Mean Corpuscular Hemoglobin 28 pg (25-35) 28 pg (25-35) 28 pg (25-35) Mean Corpuscular Hemoglobin Concent 33 g/dL (31-37) 33 g/dL (31-37) 33 g/dL (31-37) Red Cell Distribution Width 15.5 % (11.5-14.5) 16.2 % (11.5-14.5) 15.9 % (11.5-14.5) Platelet Count 153 x10^3/uL (140-400) 154 x10^3/uL (140-400) 147 x10^3/uL (140-400) Prothrombin Time 14.2 SEC (11.7-14.0) 14.0 SEC (11.7-14.0) 14.2 SEC (11.7-14.0) Prothromb Time International Ratio 1.1 (0.8-1.1) 1.1 (0.8-1.1) 1.1 (0.8-1.1) Activated Partial Thromboplast Time 40 SEC (24-38) 42 SEC (24-38) 38 SEC (24-38) Fibrinogen 485 mg/dL (200-440) 505 mg/dL (200-440) 531 mg/dL (200-440) Sodium Level 139 mmol/L (136-145) Potassium Level 3.6 mmol/L (3.5-5.1) Chloride Level 103 mmol/L (98-107) Carbon Dioxide Level 29 mmol/L (21-32) Anion Gap 7 (6-14) Blood Urea Nitrogen 10 mg/dL (8-26) Creatinine 0.8 mg/dL (0.7-1.3) Estimated GFR (Cockcroft-Gault) 91.2 Glucose Level 89 mg/dL (70-99) Calcium Level 8.5 mg/dL (8.5-10.1) Medications Current Medications Morphine Sulfate (Morphine Sulfate) 2 mg 1X ONCE IV Last administered on 07/19/18at 11:19; Start 07/19/18 at 11:00; Stop 07/19/18 at 11:07; Status DC Sodium Chloride 1,000 ml @ 100 mls/hr Q10H IV Last administered on 07/19/18 11:17; Start 07/19/18 at 10:50; Stop 07/19/18 at 20:49; Status DC Iohexol (Omnipaque 350 Mg/ml) 95 ml 1X ONCE IV Last administered on 07/19/18 11:45; Start 07/19/18 at 11:45; Stop 07/19/18 at 11:46; Status DC Morphine Sulfate (Morphine Sulfate) 4 mg 1X ONCE IV Last administered on 11:54; Start 07/19/18 at 12:00; Stop 07/19/18 at 12:01; Status DC Hydromorphone HCl (Dilaudid) 1 mg 1X ONCE IV Last administered on 07/19/18at 14:25; Start 07/19/18 at 14:30; Stop 07/19/18 at 14:31; Status DC Morphine Sulfate (Morphine Sulfate) 4 mg PRN Q2HR PRN IV PAIN Last administered on 07/20/18at 11:14; Start 07/19/18 at 14:45; Stop 07/20/18 at 14:44; Status DC Heparin Sodium (Porcine) (Heparin Sodium) 6,900 unit 1X ONCE IV Last administered on 07/19/18at 21:21; Start 07/19/18 at 19:15; Stop 07/19/18 at 19:21; Status DC Heparin Sodium/ Dextrose 500 ml @ 0 mls/hr CONT PRN IV SEE I/O RECORD; Start 07/19/18 at 19:15; Stop 07/20/18 at 17:25; Status DC Heparin Sodium (Porcine) (Heparin Sodium) 2,150 unit PRN Q6HRS PRN IV FOR UFH LEVEL LESS THAN 0.2 Last administered on 07/20/18at 04:37; Start 07/19/18 at 19:15 Sodium Chloride 1,000 ml @ 50 mls/hr Q20H IV Last administered on 07/19/18at 22:00; Start 07/19/18 at 19:45 Lorazepam (Ativan Inj) 2 mg 1X ONCE IM/IV Last administered on 07/20/18at 03:30; Start 07/20/18 at 03:30; Stop 07/20/18 at 03:31; Status DC Haloperidol (Haldol) 5 mg PRN Q6HRS PRN PO AGITATION Last administered on 07/20/18at 18:16; Start 07/20/18 at 03:15 Iodixanol (Visipaque 320) 100 ml STK-MED ONCE .ROUTE ; Start 07/20/18 at 12:30; Stop 07/20/18 at 12:31; Status DC Lidocaine/Sodium Bicarbonate (Buffered Lidocaine 1%) 3 ml STK-MED ONCE .ROUTE ; Start 07/20/18 at 12:30; Stop 07/20/18 at 12:31; Status DC Heparin Sodium/ Sodium Chloride 500 ml @ As Directed STK-MED ONCE .ROUTE ; Start 07/20/18 at 12:30; Stop 07/20/18 at 12:31; Status DC Heparin Sodium/ Sodium Chloride 500 ml @ As Directed STK-MED ONCE .ROUTE ; Start 07/20/18 at 12:31; Stop 07/20/18 at 12:32; Status DC Info (Anti-Coagulation Monitoring By Pharmacy) 1 each PRN DAILY PRN MC SEE COMMENTS Last administered on 07/21/18 14:55; Start 07/20/18 at 12:45 Midazolam HCl (Versed) 2 mg STK-MED ONCE .ROUTE ; Start 07/20/18 at 13:08; Stop 07/20/18 at 13:09; Status DC Fentanyl Citrate (Fentanyl 2ml Vial) 100 mcg STK-MED ONCE .ROUTE ; Start 07/20/18 at 13:09; Stop 07/20/18 at 13:10; Status DC Heparin Sodium (Porcine) (Heparin Sodium) 10,000 unit STK-MED ONCE .ROUTE ; Start 07/20/18 at 13:09; Stop 07/20/18 at 13:10; Status DC Heparin Sodium/ Sodium Chloride (HEPARIN for ARTERIAL LINE FLUSH) 1,000 unit 1X ONCE IART Last administered on 07/20/18 13:15; Start 07/20/18 at 13:15; Stop 07/20/18 at 13:20; Status DC Heparin Sodium/ Sodium Chloride (HEPARIN for ARTERIAL LINE FLUSH) 1,000 unit 1X ONCE IART Last administered on 07/20/18 13:15; Start 07/20/18 at 13:15; Stop 07/20/18 at 13:20; Status DC Lidocaine/Sodium Bicarbonate (Buffered Lidocaine 1%) 3 ml 1X ONCE IJ Last administered on 07/20/18 13:15; Start 07/20/18 at 13:15; Stop 07/20/18 at 13:20; Status DC Midazolam HCl (Versed) 2 mg 1X ONCE IV Last administered on 07/20/18 13:15; Start 07/20/18 at 13:15; Stop 07/20/18 at 13:20; Status DC Fentanyl Citrate (Fentanyl 2ml Vial) 100 mcg 1X ONCE IV Last administered on 07/20/18 13:15; Start 07/20/18 at 13:15; Stop 07/20/18 at 13:20; Status DC Iodixanol (Visipaque 320) 100 ml 1X ONCE IART Last administered on 07/20/18 13:15; Start 07/20/18 at 13:15; Stop 07/20/18 at 13:20; Status DC Heparin Sodium (Porcine) (Heparin Sodium) 5,000 unit 1X ONCE IV Last administered on 07/20/18 14:30; Start 07/20/18 at 14:30; Stop 07/20/18 at 14:32; Status DC Lidocaine/Sodium Bicarbonate (Buffered Lidocaine 1%) 3 ml STK-MED ONCE .ROUTE ; Start 07/20/18 at 15:54; Stop 07/20/18 at 15:55; Status DC Heparin Sodium/ Sodium Chloride 500 ml @ As Directed STK-MED ONCE .ROUTE ; Start 07/20/18 at 16:27; Stop 07/20/18 at 16:28; Status DC Alteplase, Recombinant 25 mg/ Sodium Chloride 250 ml @ 10 mls/hr Q25H IV ; Start 07/20/18 at 16:30; Stop 07/20/18 at 17:22; Status DC Alteplase, Recombinant 25 mg/ Sodium Chloride 250 ml @ 10 mls/hr 1X ONCE IV Last administered on 07/20/18at 18:16; Start 07/20/18 at 17:30; Stop 07/21/18 at 18:29 Heparin Sodium/ Dextrose 500 ml @ 0 mls/hr CONT PRN IV SEE I/O RECORD Last administered on 07/20/18at 18:15; Start 07/20/18 at 17:30 Morphine Sulfate (Morphine Sulfate) 4 mg PRN Q2HR PRN IV PAIN Last administered on 07/21/18at 07:29; Start 07/20/18 at 21:00 Haloperidol Lactate (Haldol Inj) 2 mg 1X ONCE IV Last administered on 07/20/18at 21:25; Start 07/20/18 at 22:00; Stop 07/20/18 at 22:01; Status DC Lorazepam (Ativan Inj) 0.25 mg PRN Q4HRS PRN IV ANXIETY / AGITATION Last administered on 07/21/18at 07:30; Start 07/20/18 at 21:30 Iodixanol (Visipaque 320) 100 ml STK-MED ONCE .ROUTE ; Start 07/21/18 at 12:29; Stop 07/21/18 at 12:30; Status DC Heparin Sodium/ Sodium Chloride 500 ml @ As Directed STK-MED ONCE .ROUTE ; Start 07/21/18 at 12:29; Stop 07/21/18 at 12:30; Status DC Lidocaine/Sodium Bicarbonate (Buffered Lidocaine 1%) 3 ml STK-MED ONCE .ROUTE ; Start 07/21/18 at 12:34; Stop 07/21/18 at 12:35; Status DC Lidocaine/Sodium Bicarbonate (Buffered Lidocaine 1%) 3 ml STK-MED ONCE .ROUTE ; Start 07/21/18 at 12:36; Stop 07/21/18 at 12:37; Status DC Midazolam HCl (Versed) 2 mg STK-MED ONCE .ROUTE ; Start 07/21/18 at 12:36; Stop 07/21/18 at 12:37; Status DC Fentanyl Citrate (Fentanyl 2ml Vial) 100 mcg STK-MED ONCE .ROUTE ; Start 07/21/18 at 12:36; Stop 07/21/18 at 12:37; Status DC Heparin Sodium (Porcine) (Heparin Sodium) 10,000 unit STK-MED ONCE .ROUTE ; Start 07/21/18 at 13:28; Stop 07/21/18 at 13:29; Status DC Midazolam HCl (Versed) 2 mg 1X ONCE IV ; Start 07/21/18 at 13:45; Stop 07/21/18 at 13:46; Status DC Fentanyl Citrate (Fentanyl 2ml Vial) 100 mcg 1X ONCE IV ; Start 07/21/18 at 13:45; Stop 07/21/18 at 13:46; Status DC Iodixanol (Visipaque 320) 100 ml 1X ONCE IART ; Start 07/21/18 at 13:45; Stop 07/21/18 at 13:46; Status DC Heparin Sodium (Porcine) (Heparin Sodium) 5,000 unit 1X ONCE IV ; Start 07/21/18 at 13:30; Stop 07/21/18 at 13:40; Status DC Heparin Sodium/ Sodium Chloride 500 ml @ As Directed STK-MED ONCE .ROUTE ; Start 07/21/18 at 14:40; Stop 07/21/18 at 14:41; Status DC Heparin Sodium/ Sodium Chloride (HEPARIN for ARTERIAL LINE FLUSH) 1,000 unit 1X ONCE IART ; Start 07/21/18 at 14:45; Stop 07/21/18 at 14:47; Status DC Heparin Sodium/ Sodium Chloride (HEPARIN for ARTERIAL LINE FLUSH) 1,000 unit 1X ONCE IART ; Start 07/21/18 at 14:45; Stop 07/21/18 at 14:47; Status DC Lidocaine/Sodium Bicarbonate (Buffered Lidocaine 1%) 3 ml 1X ONCE IJ ; Start 07/21/18 at 14:45; Stop 07/21/18 at 14:47; Status DC Iodixanol (Visipaque 320) 100 ml STK-MED ONCE .ROUTE ; Start 07/21/18 at 14:46; Stop 07/21/18 at 14:47; Status DC Midazolam HCl (Versed) 2 mg STK-MED ONCE .ROUTE ; Start 07/21/18 at 14:52; Stop 07/21/18 at 14:53; Status DC Fentanyl Citrate (Fentanyl 2ml Vial) 100 mcg STK-MED ONCE .ROUTE ; Start 07/21/18 at 14:52; Stop 07/21/18 at 14:53; Status DC Alteplase, Recombinant 10 mg/ Sodium Chloride 100 ml @ 10 mls/hr 1X ONCE IV ; Start 07/21/18 at 15:00; Stop 07/22/18 at 00:59 Heparin Sodium/ Sodium Chloride 500 ml @ As Directed STK-MED ONCE .ROUTE ; Start 07/21/18 at 14:56; Stop 07/21/18 at 14:57; Status DC Nitroglycerin (Nitroglycerin) 200 mcg 1X ONCE IART ; Start 07/21/18 at 15:15; Stop 07/21/18 at 15:16; Status DC Vancomycin HCl 250 ml @ As Directed STK-MED ONCE .ROUTE ; Start 07/21/18 at 15:08; Stop 07/21/18 at 15:09; Status DC Vancomycin HCl 250 ml @ 250 mls/hr 1X ONCE IV ; Start 07/21/18 at 15:15; Stop 07/21/18 at 16:14 Active Scripts Active Reported Aricept (Donepezil Hcl) 10 Mg Tablet 23 Mg PO HS Gabapentin (Gabapentin) 100 Mg Capsule 100 Mg PO TID Namenda (Memantine Hcl) 10 Mg Tablet 10 Mg PO DAILY Levothyroxine Sodium 50 Mcg Tablet 1 Tab PO DAILY Vitals/I & O Vital Sign - Last 24 Hours 07/20/18 07/20/18 07/20/18 07/20/18 16:36 18:34 19:00 20:00 Pulse 83 78 Resp 20 14 B/P (MAP) 138/82 (100) Pulse Ox 99 99 100 O2 Delivery Nasal Cannula Room Air Nasal Cannula Room Air O2 Flow Rate 2.0 2.0 2.0 07/20/18 07/20/18 07/20/18 6/6/19 20:00 21:00 21:07 22:00 Temp 98.0 98.0 Pulse 92 91 89 Resp 18 16 12 16 B/P (MAP) 137/75 (95) 120/70 (87) 137/71 (93) Pulse Ox 97 100 100 100 O2 Delivery Room Air Room Air Room Air Room Air 07/20/18 07/20/18 07/21/18 07/21/18 23:00 23:55 00:00 01:00 Temp 97.9 97.9 Pulse 87 103 89 Resp 18 16 14 B/P (MAP) 114/76 (89) 128/71 (90) 102/69 (80) Pulse Ox 97 100 100 O2 Delivery Room Air Room Air Room Air Room Air 07/21/18 07/21/18 07/21/18 07/21/18 02:00 02:04 02:34 03:00 Pulse 103 83 Resp 20 16 16 16 B/P (MAP) 113/68 (83) 113/73 (86) Pulse Ox 100 100 100 O2 Delivery Room Air Room Air Room Air 07/21/18 07/21/18 07/21/18 07/21/18 04:00 04:00 04:00 05:00 Temp 97.8 97.8 Pulse 96 71 Resp 16 14 B/P (MAP) 113/73 (86) 114/65 (81) Pulse Ox 100 100 O2 Delivery Room Air Room Air Room Air 07/21/18 07/21/18 07/21/18 07/21/18 06:00 07:00 07:29 08:00 Temp 98.0 98.0 Pulse 81 81 82 Resp 16 16 16 B/P (MAP) 110/74 (86) 141/74 (96) 109/71 (84) Pulse Ox 100 100 100 100 O2 Delivery Room Air Room Air Room Air Room Air O2 Flow Rate 2.0 07/21/18 07/21/18 07/21/18 07/21/18 08:00 08:22 09:00 10:01 Pulse 81 81 Resp 16 16 B/P (MAP) 106/74 (85) 73/74 (74) Pulse Ox 100 100 100 O2 Delivery Room Air Room Air Room Air Room Air O2 Flow Rate 2.0 07/21/18 07/21/18 07/21/18 11:11 12:00 12:00 Temp 98.9 98.9 Pulse 81 86 Resp 16 15 B/P (MAP) 114/74 (87) 137/87 (104) Pulse Ox 100 99 O2 Delivery Room Air Room Air Room Air Intake and Output 07/20/18 07/20/18 07/21/18 15:00 23:00 07:00 Intake Total 0 ml 180 ml 611.40 ml Output Total 975 ml 1170 ml 665 ml Balance -975 ml -990 ml -53.60 ml Nutrition Consultation Dietary Evaluation: Recommendations by RD: Increase Calorie Intake Comments: REC continue w/cardiac diet, would consider liberalizing to regular if needed to promote PO intake of meals Consider oral supplements if PO intake of meals <50% Expected Outcomes/Goals: PO intake to meet >75% est needs Malnutrition Findings: Body Fat Depletion (Non Severe: Mild Depletion Weight Status: Appropriate MARK MC MD Jul 21, 2018 15:35
--- NOTE | 2018-07-21 16:34 | PDOC ---
MODERATE SEDATION ASSESSMENT RISKS/ALTERNATIVES Risks/Alternatives Risks and alternatives of this type of sedation and procedure discussed with: RISK/ALTERNATIVES: Patient H & P ON CHART H & P H & P on chart and reviewed for co-morbid conditions and appropriate labs. H&P ON CHART: Yes STATUS PREG STATUS ASSESSED: Yes MEDS/ALLERGIES REVIEWED Meds/Allergies Reviewed Medications and Allergies including time and route of recently administered narcotics and sedatives. MEDS/ALLERGIES REVIEWED: Yes ASA RATING ASA RATING: II AIRWAY ASSESSMENT Airway Assessment Airway patency, oral function limitations, presence of caps, crowns, dentures, partials, and ability to extend neck assessed. AIRWAY ASSESSMENT: Yes MALLAMPATI SCORE MALLAMPATI SCORE: II PRE-SEDATION ASSESSMENT PRE-SEDATION ASSESSMENT: Yes BELA BROWN MD Jul 21, 2018 16:34
--- NOTE | 2018-07-21 16:38 | PDOC ---
BRIEF OPERATIVE NOTE Pre-Op Diagnosis Critical Limb Ischemia Post-Op Diagnosis same Procedure Performed Angiography, Popliteal artery stents, PT angioplasty and thrombectomy Surgeon Julio Anesthesia Type: Conscious Sedation Findings Improved flow to the plantar arteries s/p overnight thrombolysis. Successful exclusion of popliteal aneurysms with covered stents. This resulted in mild distal embolization to the posterior tibial artery. Flow was restored with thrombectomy and angioplasty of the distal PT resulting in improvement of pain. Complications no immediate BELA BROWN MD Jul 21, 2018 16:38
[2018-07-21] MEDS ORDERED: HEPARIN for IV BOLUS 10,000 UNIT/10 ML VIAL. IV PRN (16:45)
--- NOTE | 2018-07-21 17:15 | RAD ---
Procedure: Arterial thrombolysis second day, diagnostic angiography of the right lower extremity, popliteal artery stent placement, thrombectomy of the posterior tibial artery, and possibly the posterior tibial artery. Clinical Indication: 88-year-old with right foot ischemia Sedation: Conscious sedation was administered with a total intraprocedural [id number] time of 171 minutes. The patient was monitored by a qualified independent observer throughout the time of sedation. Please refer to the medical record for exact doses of medications utilized to achieve moderate sedation. Antibiotics: Intraprocedural antibiotics were administered. Exposure: Kerma-Area Product: 35 Gycm2 Sterility: All elements of maximal sterile barrier technique including the use of a cap, mask, sterile gown, sterile gloves, large sterile sheet, appropriate hand hygiene, and 2% chlorhexidine for cutaneous antisepsis (or acceptable alternative antiseptic per current guidelines) were followed for this procedure. If ultrasound guidance was utilized, sterile ultrasound techniques were followed including use of a sterile probe cover. Consent: Elements and sent Technique and Findings: Following informed consent, the patient was prepped and draped in usual sterile fashion. Contrast angiography was performed from the catheter within the peroneal artery demonstrating improved flow to the mid foot through both the posterior tibial and dorsalis pedis arteries. The catheter was then pulled back into the distal popliteal artery and selective angiography was performed of the trifurcation demonstrating patency of the trifurcation with persistent patency of all 3 proximal vessels as well. There is a nonflow limiting short dissection flap within the proximal posterior tibial artery. The patient was then given 5000 units of heparin intravenously. To proglide devices were placed as a preclose maneuver, and a 12 Cambodian sheath was placed. A 9 mm x 50 mm self expanding covered stent was then deployed in the distal popliteal artery. An 11 mm x 100 mm self expanding covered stent was then nested within the first stent and deployed throughout the remainder of the aneurysm extending into the proximal popliteal artery. The stent was then postdilated using a 10 mm angioplasty balloon inflated to maximal pressure, resulting in diameter 10.5 mm. The distal stent was angioplastied using an 8 mm x 40 mm angioplasty balloon inflated to nominal pressure. Repeat angiography was performed, demonstrating excellent radiographic appearance, however there is noted to be delayed accumulation of contrast within the aneurysm sac near the level of the stent junction. Consequently, a 9 mm x 40 mm angioplasty balloon was used and plastic stent junction, and this balloon was inflated to maximal pressure resulting in a nominal diameter of 9.4 mm. Completion angiogram demonstrated no residual endoleak, with excellent radiographic appearance. The catheter was then advanced into the distal popliteal artery, and repeat angiography was performed of the foot. This revealed a 2 cm occlusion of the distal posterior tibial artery at the ankle, consistent with a small embolus. The patient also noted progressive pain at this time. An additional 2500 units of heparin were then administered, and an angled catheter and wire were advanced into the distal posterior tibial artery. An 018 wire and specialized catheter was then used to successfully cross the area of occlusion and gain access to the lateral plantar artery of the foot. Thrombectomy of the area of abnormality was then performed using an AngioJet catheter. This was followed by a power pulse spray injection of TPA, with a dwell time of 10 minutes. A second round of thrombectomy was then performed. A 2 mm x 100 mm angioplasty balloon was then used to angioplasty the distal posterior tibial artery in the hindfoot extending into the area of the ankle. The balloon was then deflated and a 2.5 mm x 100 mm angioplasty balloon was used to angioplasty the distal posterior tibial artery of the leg. This balloon was then retracted into the mid to distal posterior tibial artery and angioplasty was performed in this location as well. The balloon was then removed and completion angiography was performed demonstrating evangelical of in-line flow through the posterior tibial artery to the junction of the mid and forefoot. There is persistent antegrade flow through the peroneal artery which reconstitutes the distal anterior tibial artery which provides in-line flow to the dorsalis pedis artery to the level of the mid foot. Overall flow is equivalent to or slightly improved from the initial angiogram. Catheters and wires were then removed. Both proglide devices were then used to achieve hemostasis upon removal of a 12 Cambodian sheath. Complications: No immediate. Mild distal in position of the posterior tibial artery was resolved during this procedure. Impression: 1. Improved flow to the mid foot from both the anterior and posterior circulation following TPA thrombolysis. Flow to the forefoot remains poor. 2. Successful exclusion of a large popliteal aneurysm via covered stents as described. 3. Small area of distal embolization involving the posterior tibial artery resulting in temporarily impeded flow to the foot. Following focal thrombolysis, thrombectomy, and angioplasty, this is resolved, with evangelical of perfusion to the mid foot equivalent to or perhaps slightly better than prior to embolization. Perfusion to the forefoot remains poor.
[2018-07-21] MEDS: HEPARIN 25,000UTS/500ML PREMIX 500 ML IV PRN (18:02)
[2018-07-22] VITALS (16 sets, daily range): BP systolic 89–127; BP diastolic 47–90
[2018-07-22] MEDS: IV NORMAL SALINE 1000ML BAG 1,000 ML IV SCH ×2 (04:16→18:00)
[2018-07-22] MEDS: MORPHINE SULFATE 4 MG/ML VIAL. IV PRN ×4 (04:16→18:01)
[2018-07-22] MEDS: HEPARIN 25,000UTS/500ML PREMIX 500 ML IV PRN (04:20)
[2018-07-22 06:48] LABS: BASO % 0 % (0-3); EOS # 0.2 x10^3/uL (0.0-0.7); EOS % 3 % (0-3); HEMATOCRIT 35.2 % (39.0-53.0); HEMOGLOBIN 11.5 g/dL (13.0-17.5); LYMPH # 0.5 x10^3/uL (1.0-4.8); LYMPH % 7 % (24-48); MEAN CORPUSCULAR HEMOGLOBIN 28 pg (25-35); MEAN CORPUSCULAR HGB CONC 33 g/dL (31-37); MEAN CORPUSCULAR VOLUME 85 fL (79-100); MONO # 0.5 x10^3/uL (0.0-1.1); MONO % 7 % (0-9); NEUT # 5.8 x10^3uL (1.8-7.7); NEUT % 82 % (31-73); PLATELET COUNT 157 x10^3/uL (140-400); RED BLOOD COUNT 4.16 x10^6/uL (4.30-5.70); WHITE BLOOD COUNT 7.1 x10^3/uL (4.0-11.0)
[2018-07-22 06:59] LABS: CALCIUM 8.1 mg/dL (8.5-10.1); CREATININE 0.9 mg/dL (0.7-1.3); GFR 79.6; POTASSIUM 3.5 mmol/L (3.5-5.1)
--- NOTE | 2018-07-22 08:09 | PDOC ---
PROGRESS NOTES Subjective Subjective c/o right foot pain Objective Objective Vital Signs Date Time Temp Pulse Resp B/P (MAP) Pulse Ox O2 Delivery O2 Flow Rate FiO2 07/22/18 07:00 98.0 93 14 96/61 (73) 100 Room Air 98.0 07/21/18 16:11 2.0 Intake and Output 07/22/18 07:00 Intake Total 1904.51 ml Output Total 1175 ml Balance 729.51 ml Intake Oral 600 ml IV Total 1304.51 ml Output Urine Total 1175 ml Physical Exam Abdomen: Soft, No tenderness Heart: Regular rate, Normal S1, Other (HR irregular) Extremities: Other (1+ right foot edema. Rt rook boot) General: Alert, Cooperative, No acute distress HEENT: Atraumatic, Mucous membr. moist/pink Lungs: Clear to auscultation Neuro: Normal speech Psych/Mental Status: Other (anxious ) Skin: Other (cyanosis of right foot. ) Assessment Assessment 1. Critical Limb ischemia; suspected embolic. Bilateral popliteal artery aneurysms, s/p [employer]ICER to AT/PT 07/20 and popliteal artery covered stent placement yesterday by IR. Continue Hep gtt. Vascular following 2. AFIB, newly diagnosed, rate controlled. Start Eliquis prior to DC for stroke prophylaxis. LV function normal on 2D echo. 3. Hypothyroidism; on replacement therapy Plan Plan of Care Problems Medical Problems: (1) Leg pain Status: Acute (2) PVD (peripheral vascular disease) Status: Acute Comment Review of Relevant I have reviewed the following items mendoza (where applicable) has been applied. Labs Laboratory Tests Test 07/21/18 12:10 07/22/18 00:10 07/22/18 06:25 White Blood Count 6.4 x10^3/uL (4.0-11.0) 7.1 x10^3/uL (4.0-11.0) Red Blood Count 4.38 x10^6/uL (4.30-5.70) 4.16 x10^6/uL (4.30-5.70) Hemoglobin 12.1 g/dL (13.0-17.5) 11.5 g/dL (13.0-17.5) Hematocrit 36.9 % (39.0-53.0) 35.2 % (39.0-53.0) Mean Corpuscular Volume 84 fL (79-100) 85 fL (79-100) Mean Corpuscular Hemoglobin 28 pg (25-35) 28 pg (25-35) Mean Corpuscular Hemoglobin Concent 33 g/dL (31-37) 33 g/dL (31-37) Red Cell Distribution Width 15.9 % (11.5-14.5) 16.0 % (11.5-14.5) Platelet Count 147 x10^3/uL (140-400) 157 x10^3/uL (140-400) Prothrombin Time 14.2 SEC (11.7-14.0) Prothromb Time International Ratio 1.1 (0.8-1.1) Activated Partial Thromboplast Time 38 SEC (24-38) Fibrinogen 531 mg/dL (200-440) Heparin Anti-Xa Act, Unfractionated 0.89 IU/mL (0.30-0.70) Neutrophils (%) (Auto) 82 % (31-73) Lymphocytes (%) (Auto) 7 % (24-48) Monocytes (%) (Auto) 7 % (0-9) Eosinophils (%) (Auto) 3 % (0-3) Basophils (%) (Auto) 0 % (0-3) Neutrophils # (Auto) 5.8 x10^3uL (1.8-7.7) Lymphocytes # (Auto) 0.5 x10^3/uL (1.0-4.8) Monocytes # (Auto) 0.5 x10^3/uL (0.0-1.1) Eosinophils # (Auto) 0.2 x10^3/uL (0.0-0.7) Basophils # (Auto) 0.0 x10^3/uL (0.0-0.2) Sodium Level 138 mmol/L (136-145) Potassium Level 3.5 mmol/L (3.5-5.1) Chloride Level 102 mmol/L (98-107) Carbon Dioxide Level 25 mmol/L (21-32) Anion Gap 11 (6-14) Blood Urea Nitrogen 12 mg/dL (8-26) Creatinine 0.9 mg/dL (0.7-1.3) Estimated GFR (Cockcroft-Gault) 79.6 Glucose Level 174 mg/dL (70-99) Calcium Level 8.1 mg/dL (8.5-10.1) Medications Current Medications Alteplase, Recombinant 10 mg/ Sodium Chloride 100 ml @ 10 mls/hr 1X ONCE IV Last administered on 07/21/18at 15:50; Start 07/21/18 at 15:00; Stop 07/22/18 at 00:59; Status DC Fentanyl Citrate (Fentanyl 2ml Vial) 100 mcg 1X ONCE IV Last administered on 07/21/18at 15:53; Start 07/21/18 at 13:45; Stop 07/21/18 at 13:46; Status DC Fentanyl Citrate (Fentanyl 2ml Vial) 100 mcg STK-MED ONCE .ROUTE ; Start 07/21/18 at 12:36; Stop 07/21/18 at 12:37; Status DC Fentanyl Citrate (Fentanyl 2ml Vial) 100 mcg STK-MED ONCE .ROUTE ; Start 07/21/18 at 14:52; Stop 07/21/18 at 14:53; Status DC Heparin Sodium (Porcine) (Heparin Sodium) 1,250 unit PRN Q6HRS PRN IV FOR UFH LEVEL 0.2 - 0.29; Start 07/21/18 at 16:45 Heparin Sodium (Porcine) (Heparin Sodium) 2,500 unit PRN Q6HRS PRN IV FOR UFH LEVEL LESS THAN 0.2; Start 07/21/18 at 16:45 Heparin Sodium (Porcine) (Heparin Sodium) 5,000 unit 1X ONCE IV Last administ ered on 07/21/18at 15:58; Start 07/21/18 at 13:30; Stop 07/21/18 at 13:40; Status DC Heparin Sodium (Porcine) (Heparin Sodium) 6,700 unit 1X ONCE IV Last administered on 07/21/18at 18:14; Start 07/21/18 at 16:45; Stop 07/21/18 at 16:50; Status DC Heparin Sodium (Porcine) (Heparin Sodium) 10,000 unit STK-MED ONCE .ROUTE ; Start 07/21/18 at 13:28; Stop 07/21/18 at 13:29; Status DC Heparin Sodium/ Dextrose 500 ml @ 0 mls/hr CONT PRN IV SEE I/O RECORD Last administered on 07/22/18at 04:20; Start 07/21/18 at 16:45 Heparin Sodium/ Sodium Chloride 500 ml @ As Directed STK-MED ONCE .ROUTE ; Start 07/21/18 at 12:29; Stop 07/21/18 at 12:30; Status DC Heparin Sodium/ Sodium Chloride 500 ml @ As Directed STK-MED ONCE .ROUTE ; Start 07/21/18 at 14:40; Stop 07/21/18 at 14:41; Status DC Heparin Sodium/ Sodium Chloride 500 ml @ As Directed STK-MED ONCE .ROUTE ; Start 07/21/18 at 14:56; Stop 07/21/18 at 14:57; Status DC Heparin Sodium/ Sodium Chloride (HEPARIN for ARTERIAL LINE FLUSH) 1,000 unit 1X ONCE IART Last administered on 07/21/18at 15:49; Start 07/21/18 at 14:45; Stop 07/21/18 at 14:47; Status DC Heparin Sodium/ Sodium Chloride (HEPARIN for ARTERIAL LINE FLUSH) 1,000 unit 1X ONCE IART Last administered on 07/21/18at 15:49; Start 07/21/18 at 14:45; Stop 07/21/18 at 14:47; Status DC Info (Anti-Coagulation Monitoring By Pharmacy) 1 each PRN DAILY PRN MC SEE COMMENTS; Start 07/21/18 at 17:00 Iodixanol (Visipaque 320) 100 ml 1X ONCE IART Last administered on 07/21/18at 15:52; Start 07/21/18 at 13:45; Stop 07/21/18 at 13:46; Status DC Iodixanol (Visipaque 320) 100 ml STK-MED ONCE .ROUTE ; Start 07/21/18 at 12:29; Stop 07/21/18 at 12:30; Status DC Iodixanol (Visipaque 320) 100 ml STK-MED ONCE .ROUTE ; Start 07/21/18 at 14:46; Stop 07/21/18 at 14:47; Status DC Lidocaine/Sodium Bicarbonate (Buffered Lidocaine 1%) 3 ml 1X ONCE IJ Last administered on 07/21/18at 15:51; Start 07/21/18 at 14:45; Stop 07/21/18 at 14:47; Status DC Lidocaine/Sodium Bicarbonate (Buffered Lidocaine 1%) 3 ml STK-MED ONCE .ROUTE ; Start 07/21/18 at 12:34; Stop 07/21/18 at 12:35; Status DC Lidocaine/Sodium Bicarbonate (Buffered Lidocaine 1%) 3 ml STK-MED ONCE .ROUTE ; Start 07/21/18 at 12:36; Stop 07/21/18 at 12:37; Status DC Midazolam HCl (Versed) 2 mg 1X ONCE IV Last administered on 07/21/18at 15:53; Start 07/21/18 at 13:45; Stop 07/21/18 at 13:46; Status DC Midazolam HCl (Versed) 2 mg STK-MED ONCE .ROUTE ; Start 07/21/18 at 12:36; Stop 07/21/18 at 12:37; Status DC Midazolam HCl (Versed) 2 mg STK-MED ONCE .ROUTE ; Start 07/21/18 at 14:52; Stop 07/21/18 at 14:53; Status DC Nitroglycerin (Nitroglycerin) 200 mcg 1X ONCE IART Last administered on 07/21/18at 15:55; Start 07/21/18 at 15:15; Stop 07/21/18 at 15:16; Status DC Vancomycin HCl 250 ml @ 250 mls/hr 1X ONCE IV Last administered on 07/21/18at 15:57; Start 07/21/18 at 15:15; Stop 07/21/18 at 16:14; Status DC Vancomycin HCl 250 ml @ As Directed STK-MED ONCE .ROUTE ; Start 07/21/18 at 15:08; Stop 07/21/18 at 15:09; Status DC Vitals/I & O Vital Sign - Last 24 Hours 07/21/18 07/21/18 07/21/18 07/21/18 08:22 09:00 10:01 11:11 Pulse 81 81 81 Resp 16 16 16 B/P (MAP) 106/74 (85) 73/74 (74) 114/74 (87) Pulse Ox 100 100 100 O2 Delivery Room Air Room Air Room Air O2 Flow Rate 2.0 07/21/18 07/21/18 07/21/18 07/21/18 12:00 12:00 15:53 16:00 Temp 98.9 98.9 Pulse 86 Resp 15 21 B/P (MAP) 137/87 (104) Pulse Ox 99 96 O2 Delivery Room Air Room Air Nasal Cannula Room Air O2 Flow Rate 2.0 07/21/18 07/21/18 07/21/18 07/21/18 16:11 17:00 18:00 19:00 Pulse 87 98 92 98 Resp 21 22 B/P (MAP) 137/73 (94) 118/83 (95) 127/76 (93) Pulse Ox 96 100 94 98 O2 Delivery Nasal Cannula Room Air Room Air Room Air O2 Flow Rate 2.0 07/21/18 07/21/18 07/21/18 07/21/18 20:00 20:00 21:00 22:00 Temp 99.2 99.2 Pulse 102 102 87 Resp 20 16 16 B/P (MAP) 110/69 (83) 97/66 (76) 131/67 (88) Pulse Ox 99 99 98 O2 Delivery Room Air Room Air Room Air Room Air 07/21/18 07/22/18 07/22/18 07/22/18 23:00 00:00 00:00 00:00 Temp 98.0 98.0 Pulse 97 103 Resp 18 18 B/P (MAP) 109/65 (80) 116/73 (87) Pulse Ox 99 100 O2 Delivery Room Air Room Air Room Air 07/22/18 07/22/18 07/22/18 07/22/18 01:00 02:00 03:00 04:00 Pulse 95 91 93 Resp 18 16 16 B/P (MAP) 105/69 (81) 118/71 (87) 124/79 (94) Pulse Ox 100 100 100 O2 Delivery Room Air Room Air Room Air Room Air 07/22/18 07/22/18 07/22/18 07/22/18 04:00 04:16 04:46 05:00 Temp 98.9 98.9 Pulse 86 95 Resp 20 20 18 18 B/P (MAP) 112/69 (83) 115/78 (90) Pulse Ox 100 100 100 100 O2 Delivery Room Air Room Air Room Air Room Air 07/22/18 07/22/18 06:00 07:00 Temp 98.0 98.0 Pulse 93 93 Resp 16 14 B/P (MAP) 109/90 (96) 96/61 (73) Pulse Ox 100 100 O2 Delivery Room Air Room Air Intake and Output 07/21/18 07/21/18 07/22/18 15:00 23:00 07:00 Intake Total 0 ml 360 ml 1544.51 ml Output Total 300 ml 580 ml 295 ml Balance -300 ml -220 ml 1249.51 ml BENJI ESCOBAR MD Jul 22, 2018 08:09
--- NOTE | 2018-07-22 13:02 | PDOC ---
Provider Note Provider Note Vascular progress note Status post covered stent placement of a right popliteal artery aneurysm. Patient had distal embolization required thrombolysis of his outflow vessels. His arteriograms have been reviewed. Arteriogram shows Successful treatment of a symptomatic embolizing popliteal artery aneurysm with covered stent therapy and outflow vessel thrombolysis . Patient exam today shows a warm foot with excellent Doppler flow signal in both the dorsalis pedis and posterior tibial arteries. These vessels were not palpable on today's exam. There is no evidence of digital ischemia. Motor function and sensation is intact Patient does have a small aneurysm of the left popliteal fossa. Discussed these findings with the patient. He is going to be transferred to the floor. He can be converted to oral anticoagulation. His left popliteal artery aneurysm will probably need to be addressed when he recovers from this most recent intervention. MONIQUE HERNANDEZ MD Jul 22, 2018 13:02
--- NOTE | 2018-07-22 13:18 | PDOC ---
PROGRESS NOTES Chief Complaint Chief Complaint arterial occlusion, embolic. on TPA, Right Popliteal artery aneurysm. 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 Hypothyroidism PVD cognitive decline History of Present Illness History of Present Illness TPA to complete today transfer out of ICU, to CV floor vasc surg following feels improved, Vitals Vitals Vital Signs Date Time Temp Pulse Resp B/P (MAP) Pulse Ox O2 Delivery O2 Flow Rate FiO2 07/22/18 12:12 98.7 92 12 92/55 (67) 98 Room Air 98.7 07/21/18 16:11 2.0 Physical Exam General: Alert, Cooperative, No acute distress Heart: Regular rate, Normal S1, Other (HR irregular) Lungs: Clear, Wheezing Abdomen: Soft, No tenderness Extremities: Other (1+ right foot edema. Rt rook boot) Skin: Other (cyanosis of right foot. ) Labs LABS Laboratory Tests Test 07/22/18 00:10 07/22/18 06:25 Heparin Anti-Xa Act, Unfractionated 0.89 IU/mL (0.30-0.70) 0.54 IU/mL (0.30-0.70) White Blood Count 7.1 x10^3/uL (4.0-11.0) Red Blood Count 4.16 x10^6/uL (4.30-5.70) Hemoglobin 11.5 g/dL (13.0-17.5) Hematocrit 35.2 % (39.0-53.0) Mean Corpuscular Volume 85 fL (79-100) Mean Corpuscular Hemoglobin 28 pg (25-35) Mean Corpuscular Hemoglobin Concent 33 g/dL (31-37) Red Cell Distribution Width 16.0 % (11.5-14.5) Platelet Count 157 x10^3/uL (140-400) Neutrophils (%) (Auto) 82 % (31-73) Lymphocytes (%) (Auto) 7 % (24-48) Monocytes (%) (Auto) 7 % (0-9) Eosinophils (%) (Auto) 3 % (0-3) Basophils (%) (Auto) 0 % (0-3) Neutrophils # (Auto) 5.8 x10^3uL (1.8-7.7) Lymphocytes # (Auto) 0.5 x10^3/uL (1.0-4.8) Monocytes # (Auto) 0.5 x10^3/uL (0.0-1.1) Eosinophils # (Auto) 0.2 x10^3/uL (0.0-0.7) Basophils # (Auto) 0.0 x10^3/uL (0.0-0.2) Sodium Level 138 mmol/L (136-145) Potassium Level 3.5 mmol/L (3.5-5.1) Chloride Level 102 mmol/L (98-107) Carbon Dioxide Level 25 mmol/L (21-32) Anion Gap 11 (6-14) Blood Urea Nitrogen 12 mg/dL (8-26) Creatinine 0.9 mg/dL (0.7-1.3) Estimated GFR (Cockcroft-Gault) 79.6 Glucose Level 174 mg/dL (70-99) Calcium Level 8.1 mg/dL (8.5-10.1) Review of Systems Review of Systems no n,v.d Assessment and Plan Assessmemt and Plan Problems Medical Problems: (1) Leg pain Status: Acute (2) PVD (peripheral vascular disease) Status: Acute Comment Review of Relevant I have reviewed the following items mendoza (where applicable) has been applied. Labs Laboratory Tests Test 07/20/18 15:15 07/21/18 00:05 07/21/18 06:05 07/21/18 12:10 Fibrinogen 476 mg/dL (200-440) 485 mg/dL (200-440) 505 mg/dL (200-440) 531 mg/dL (200-440) White Blood Count 6.5 x10^3/uL (4.0-11.0) 6.2 x10^3/uL (4.0-11.0) 6.4 x10^3/uL (4.0-11.0) Red Blood Count 4.43 x10^6/uL (4.30-5.70) 4.35 x10^6/uL (4.30-5.70) 4.38 x10^6/uL (4.30-5.70) Hemoglobin 12.3 g/dL (13.0-17.5) 12.2 g/dL (13.0-17.5) 12.1 g/dL (13.0-17.5) Hematocrit 37.3 % (39.0-53.0) 36.8 % (39.0-53.0) 36.9 % (39.0-53.0) Mean Corpuscular Volume 84 fL (79-100) 85 fL (79-100) 84 fL (79-100) Mean Corpuscular Hemoglobin 28 pg (25-35) 28 pg (25-35) 28 pg (25-35) Mean Corpuscular Hemoglobin Concent 33 g/dL (31-37) 33 g/dL (31-37) 33 g/dL (31-37) Red Cell Distribution Width 15.5 % (11.5-14.5) 16.2 % (11.5-14.5) 15.9 % (11.5-14.5) Platelet Count 153 x10^3/uL (140-400) 154 x10^3/uL (140-400) 147 x10^3/uL (140-400) Prothrombin Time 14.2 SEC (11.7-14.0) 14.0 SEC (11.7-14.0) 14.2 SEC (11.7-14.0) Prothromb Time International Ratio 1.1 (0.8-1.1) 1.1 (0.8-1.1) 1.1 (0.8-1.1) Activated Partial Thromboplast Time 40 SEC (24-38) 42 SEC (24-38) 38 SEC (24-38) Sodium Level 139 mmol/L (136-145) Potassium Level 3.6 mmol/L (3.5-5.1) Chloride Level 103 mmol/L (98-107) Carbon Dioxide Level 29 mmol/L (21-32) Anion Gap 7 (6-14) Blood Urea Nitrogen 10 mg/dL (8-26) Creatinine 0.8 mg/dL (0.7-1.3) Estimated GFR (Cockcroft-Gault) 91.2 Glucose Level 89 mg/dL (70-99) Calcium Level 8.5 mg/dL (8.5-10.1) Test 07/22/18 00:10 07/22/18 06:25 Heparin Anti-Xa Act, Unfractionated 0.89 IU/mL (0.30-0.70) 0.54 IU/mL (0.30-0.70) White Blood Count 7.1 x10^3/uL (4.0-11.0) Red Blood Count 4.16 x10^6/uL (4.30-5.70) Hemoglobin 11.5 g/dL (13.0-17.5) Hematocrit 35.2 % (39.0-53.0) Mean Corpuscular Volume 85 fL (79-100) Mean Corpuscular Hemoglobin 28 pg (25-35) Mean Corpuscular Hemoglobin Concent 33 g/dL (31-37) Red Cell Distribution Width 16.0 % (11.5-14.5) Platelet Count 157 x10^3/uL (140-400) Neutrophils (%) (Auto) 82 % (31-73) Lymphocytes (%) (Auto) 7 % (24-48) Monocytes (%) (Auto) 7 % (0-9) Eosinophils (%) (Auto) 3 % (0-3) Basophils (%) (Auto) 0 % (0-3) Neutrophils # (Auto) 5.8 x10^3uL (1.8-7.7) Lymphocytes # (Auto) 0.5 x10^3/uL (1.0-4.8) Monocytes # (Auto) 0.5 x10^3/uL (0.0-1.1) Eosinophils # (Auto) 0.2 x10^3/uL (0.0-0.7) Basophils # (Auto) 0.0 x10^3/uL (0.0-0.2) Sodium Level 138 mmol/L (136-145) Potassium Level 3.5 mmol/L (3.5-5.1) Chloride Level 102 mmol/L (98-107) Carbon Dioxide Level 25 mmol/L (21-32) Anion Gap 11 (6-14) Blood Urea Nitrogen 12 mg/dL (8-26) Creatinine 0.9 mg/dL (0.7-1.3) Estimated GFR (Cockcroft-Gault) 79.6 Glucose Level 174 mg/dL (70-99) Calcium Level 8.1 mg/dL (8.5-10.1) Laboratory Tests Test 07/22/18 00:10 07/22/18 06:25 Heparin Anti-Xa Act, Unfractionated 0.89 IU/mL (0.30-0.70) 0.54 IU/mL (0.30-0.70) White Blood Count 7.1 x10^3/uL (4.0-11.0) Red Blood Count 4.16 x10^6/uL (4.30-5.70) Hemoglobin 11.5 g/dL (13.0-17.5) Hematocrit 35.2 % (39.0-53.0) Mean Corpuscular Volume 85 fL (79-100) Mean Corpuscular Hemoglobin 28 pg (25-35) Mean Corpuscular Hemoglobin Concent 33 g/dL (31-37) Red Cell Distribution Width 16.0 % (11.5-14.5) Platelet Count 157 x10^3/uL (140-400) Neutrophils (%) (Auto) 82 % (31-73) Lymphocytes (%) (Auto) 7 % (24-48) Monocytes (%) (Auto) 7 % (0-9) Eosinophils (%) (Auto) 3 % (0-3) Basophils (%) (Auto) 0 % (0-3) Neutrophils # (Auto) 5.8 x10^3uL (1.8-7.7) Lymphocytes # (Auto) 0.5 x10^3/uL (1.0-4.8) Monocytes # (Auto) 0.5 x10^3/uL (0.0-1.1) Eosinophils # (Auto) 0.2 x10^3/uL (0.0-0.7) Basophils # (Auto) 0.0 x10^3/uL (0.0-0.2) Sodium Level 138 mmol/L (136-145) Potassium Level 3.5 mmol/L (3.5-5.1) Chloride Level 102 mmol/L (98-107) Carbon Dioxide Level 25 mmol/L (21-32) Anion Gap 11 (6-14) Blood Urea Nitrogen 12 mg/dL (8-26) Creatinine 0.9 mg/dL (0.7-1.3) Estimated GFR (Cockcroft-Gault) 79.6 Glucose Level 174 mg/dL (70-99) Calcium Level 8.1 mg/dL (8.5-10.1) Medications Current Medications Morphine Sulfate (Morphine Sulfate) 2 mg 1X ONCE IV Last administered on 07/19/18 11:19; Start 07/19/18 at 11:00; Stop 07/19/18 at 11:07; Status DC Sodium Chloride 1,000 ml @ 100 mls/hr Q10H IV Last administered on 07/19/18at 11:17; Start 07/19/18 at 10:50; Stop 07/19/18 at 20:49; Status DC Iohexol (Omnipaque 350 Mg/ml) 95 ml 1X ONCE IV Last administered on 07/19/18at 11:45; Start 07/19/18 at 11:45; Stop 07/19/18 at 11:46; Status DC Morphine Sulfate (Morphine Sulfate) 4 mg 1X ONCE IV Last administered on 07/19/18at 11:54; Start 07/19/18 at 12:00; Stop 07/19/18 at 12:01; Status DC Hydromorphone HCl (Dilaudid) 1 mg 1X ONCE IV Last administered on 07/19/18 14:25; Start 07/19/18 at 14:30; Stop 07/19/18 at 14:31; Status DC Morphine Sulfate (Morphine Sulfate) 4 mg PRN Q2HR PRN IV PAIN Last administered on 07/20/18 11:14; Start 07/19/18 at 14:45; Stop 07/20/18 at 14:44; Status DC Heparin Sodium (Porcine) (Heparin Sodium) 6,900 unit 1X ONCE IV Last administered on 07/19/18at 21:21; Start 07/19/18 at 19:15; Stop 07/19/18 at 19:21; Status DC Heparin Sodium/ Dextrose 500 ml @ 0 mls/hr CONT PRN IV SEE I/O RECORD; Start 07/19/18 at 19:15; Stop 07/20/18 at 17:25; Status DC Heparin Sodium (Porcine) (Heparin Sodium) 2,150 unit PRN Q6HRS PRN IV FOR UFH LEVEL LESS THAN 0.2 Last administered on 07/20/18at 04:37; Start 07/19/18 at 19:15; Stop 07/21/18 at 16:42; Status DC Sodium Chloride 1,000 ml @ 50 mls/hr Q20H IV Last administered on 07/22/18at 04:16; Start 07/19/18 at 19:45 Lorazepam (Ativan Inj) 2 mg 1X ONCE IM/IV Last administered on 07/20/18at 03:30; Start 07/20/18 at 03:30; Stop 07/20/18 at 03:31; Status DC Haloperidol (Haldol) 5 mg PRN Q6HRS PRN PO AGITATION Last administered on 07/20/18at 18:16; Start 07/20/18 at 03:15 Iodixanol (Visipaque 320) 100 ml STK-MED ONCE .ROUTE ; Start 07/20/18 at 12:30; Stop 07/20/18 at 12:31; Status DC Lidocaine/Sodium Bicarbonate (Buffered Lidocaine 1%) 3 ml STK-MED ONCE .ROUTE ; Start 07/20/18 at 12:30; Stop 07/20/18 at 12:31; Status DC Heparin Sodium/ Sodium Chloride 500 ml @ As Directed STK-MED ONCE .ROUTE ; Start 07/20/18 at 12:30; Stop 07/20/18 at 12:31; Status DC Heparin Sodium/ Sodium Chloride 500 ml @ As Directed STK-MED ONCE .ROUTE ; Start 07/20/18 at 12:31; Stop 07/20/18 at 12:32; Status DC Info (Anti-Coagulation Monitoring By Pharmacy) 1 each PRN DAILY PRN MC SEE COMMENTS Last administered on 07/21/18at 14:55; Start 07/20/18 at 12:45; Stop 07/21/18 at 16:43; Status DC Midazolam HCl (Versed) 2 mg STK-MED ONCE .ROUTE ; Start 07/20/18 at 13:08; Stop 07/20/18 at 13:09; Status DC Fentanyl Citrate (Fentanyl 2ml Vial) 100 mcg STK-MED ONCE .ROUTE ; Start 07/20/18 at 13:09; Stop 07/20/18 at 13:10; Status DC Heparin Sodium (Porcine) (Heparin Sodium) 10,000 unit STK-MED ONCE .ROUTE ; Start 07/20/18 at 13:09; Stop 07/20/18 at 13:10; Status DC Heparin Sodium/ Sodium Chloride (HEPARIN for ARTERIAL LINE FLUSH) 1,000 unit 1X ONCE IART Last administered on 07/20/18at 13:15; Start 07/20/18 at 13:15; Stop 07/20/18 at 13:20; Status DC Heparin Sodium/ Sodium Chloride (HEPARIN for ARTERIAL LINE FLUSH) 1,000 unit 1X ONCE IART Last administered on 07/20/18at 13:15; Start 07/20/18 at 13:15; Stop 07/20/18 at 13:20; Status DC Lidocaine/Sodium Bicarbonate (Buffered Lidocaine 1%) 3 ml 1X ONCE IJ Last administered on 07/20/18at 13:15; Start 07/20/18 at 13:15; Stop 07/20/18 at 13:20; Status DC Midazolam HCl (Versed) 2 mg 1X ONCE IV Last administered on 07/20/18at 13:15; Start 07/20/18 at 13:15; Stop 07/20/18 at 13:20; Status DC Fentanyl Citrate (Fentanyl 2ml Vial) 100 mcg 1X ONCE IV Last administered on 07/20/18 13:15; Start 07/20/18 at 13:15; Stop 07/20/18 at 13:20; Status DC Iodixanol (Visipaque 320) 100 ml 1X ONCE IART Last administered on 07/20/18at 13:15; Start 07/20/18 at 13:15; Stop 07/20/18 at 13:20; Status DC Heparin Sodium (Porcine) (Heparin Sodium) 5,000 unit 1X ONCE IV Last administered on 07/20/18at 14:30; Start 07/20/18 at 14:30; Stop 07/20/18 at 14:32; Status DC Lidocaine/Sodium Bicarbonate (Buffered Lidocaine 1%) 3 ml STK-MED ONCE .ROUTE ; Start 07/20/18 at 15:54; Stop 07/20/18 at 15:55; Status DC Heparin Sodium/ Sodium Chloride 500 ml @ As Directed STK-MED ONCE .ROUTE ; Start 07/20/18 at 16:27; Stop 07/20/18 at 16:28; Status DC Alteplase, Recombinant 25 mg/ Sodium Chloride 250 ml @ 10 mls/hr Q25H IV ; Start 07/20/18 at 16:30; Stop 07/20/18 at 17:22; Status DC Alteplase, Recombinant 25 mg/ Sodium Chloride 250 ml @ 10 mls/hr 1X ONCE IV Last administered on 07/20/18at 18:16; Start 07/20/18 at 17:30; Stop 07/21/18 at 18:29; Status DC Heparin Sodium/ Dextrose 500 ml @ 0 mls/hr CONT PRN IV SEE I/O RECORD Last administered on 07/20/18at 18:15; Start 07/20/18 at 17:30; Stop 07/21/18 at 16:42; Status DC Morphine Sulfate (Morphine Sulfate) 4 mg PRN Q2HR PRN IV PAIN Last administered on 07/22/18at 11:22; Start 07/20/18 at 21:00 Haloperidol Lactate (Haldol Inj) 2 mg 1X ONCE IV Last administered on 07/20/18at 21:25; Start 07/20/18 at 22:00; Stop 07/20/18 at 22:01; Status DC Lorazepam (Ativan Inj) 0.25 mg PRN Q4HRS PRN IV ANXIETY / AGITATION Last administered on 07/22/18at 09:03; Start 07/20/18 at 21:30 Iodixanol (Visipaque 320) 100 ml STK-MED ONCE .ROUTE ; Start 07/21/18 at 12:29; Stop 07/21/18 at 12:30; Status DC Heparin Sodium/ Sodium Chloride 500 ml @ As Directed STK-MED ONCE .ROUTE ; Start 07/21/18 at 12:29; Stop 07/21/18 at 12:30; Status DC Lidocaine/Sodium Bicarbonate (Buffered Lidocaine 1%) 3 ml STK-MED ONCE .ROUTE ; Start 07/21/18 at 12:34; Stop 07/21/18 at 12:35; Status DC Lidocaine/Sodium Bicarbonate (Buffered Lidocaine 1%) 3 ml STK-MED ONCE .ROUTE ; Start 07/21/18 at 12:36; Stop 07/21/18 at 12:37; Status DC Midazolam HCl (Versed) 2 mg STK-MED ONCE .ROUTE ; Start 07/21/18 at 12:36; Stop 07/21/18 at 12:37; Status DC Fentanyl Citrate (Fentanyl 2ml Vial) 100 mcg STK-MED ONCE .ROUTE ; Start 07/21/18 at 12:36; Stop 07/21/18 at 12:37; Status DC Heparin Sodium (Porcine) (Heparin Sodium) 10,000 unit STK-MED ONCE .ROUTE ; Start 07/21/18 at 13:28; Stop 07/21/18 at 13:29; Status DC Midazolam HCl (Versed) 2 mg 1X ONCE IV Last administered on 07/21/18 15:53; Start 07/21/18 at 13:45; Stop 07/21/18 at 13:46; Status DC Fentanyl Citrate (Fentanyl 2ml Vial) 100 mcg 1X ONCE IV Last administered on 07/21/18 15:53; Start 07/21/18 at 13:45; Stop 07/21/18 at 13:46; Status DC Iodixanol (Visipaque 320) 100 ml 1X ONCE IART Last administered on 07/21/18 15:52; Start 07/21/18 at 13:45; Stop 07/21/18 at 13:46; Status DC Heparin Sodium (Porcine) (Heparin Sodium) 5,000 unit 1X ONCE IV Last administered on 07/21/18 15:58; Start 07/21/18 at 13:30; Stop 07/21/18 at 13:40; Status DC Heparin Sodium/ Sodium Chloride 500 ml @ As Directed STK-MED ONCE .ROUTE ; Start 07/21/18 at 14:40; Stop 07/21/18 at 14:41; Status DC Heparin Sodium/ Sodium Chloride (HEPARIN for ARTERIAL LINE FLUSH) 1,000 unit 1X ONCE IART Last administered on 07/21/18at 15:49; Start 07/21/18 at 14:45; Stop 07/21/18 at 14:47; Status DC Heparin Sodium/ Sodium Chloride (HEPARIN for ARTERIAL LINE FLUSH) 1,000 unit 1X ONCE IART Last administered on 07/21/18 15:49; Start 07/21/18 at 14:45; Stop 07/21/18 at 14:47; Status DC Lidocaine/Sodium Bicarbonate (Buffered Lidocaine 1%) 3 ml 1X ONCE IJ Last administered on 07/21/18at 15:51; Start 07/21/18 at 14:45; Stop 07/21/18 at 14:47; Status DC Iodixanol (Visipaque 320) 100 ml STK-MED ONCE .ROUTE ; Start 07/21/18 at 14:46; Stop 07/21/18 at 14:47; Status DC Midazolam HCl (Versed) 2 mg STK-MED ONCE .ROUTE ; Start 07/21/18 at 14:52; Stop 07/21/18 at 14:53; Status DC Fentanyl Citrate (Fentanyl 2ml Vial) 100 mcg STK-MED ONCE .ROUTE ; Start 07/21/18 at 14:52; Stop 07/21/18 at 14:53; Status DC Alteplase, Recombinant 10 mg/ Sodium Chloride 100 ml @ 10 mls/hr 1X ONCE IV Last administered on 07/21/18at 15:50; Start 07/21/18 at 15:00; Stop 07/22/18 at 00:59; Status DC Heparin Sodium/ Sodium Chloride 500 ml @ As Directed STK-MED ONCE .ROUTE ; Start 07/21/18 at 14:56; Stop 07/21/18 at 14:57; Status DC Nitroglycerin (Nitroglycerin) 200 mcg 1X ONCE IART Last administered on 07/21/18at 15:55; Start 07/21/18 at 15:15; Stop 07/21/18 at 15:16; Status DC Vancomycin HCl 250 ml @ As Directed STK-MED ONCE .ROUTE ; Start 07/21/18 at 15:08; Stop 07/21/18 at 15:09; Status DC Vancomycin HCl 250 ml @ 250 mls/hr 1X ONCE IV Last administered on 07/21/18at 15:57; Start 07/21/18 at 15:15; Stop 07/21/18 at 16:14; Status DC Heparin Sodium (Porcine) (Heparin Sodium) 6,700 unit 1X ONCE IV Last administered on 07/21/18at 18:14; Start 07/21/18 at 16:45; Stop 07/21/18 at 16:50; Status DC Heparin Sodium/ Dextrose 500 ml @ 0 mls/hr CONT PRN IV SEE I/O RECORD Last administered on 07/22/18at 04:20; Start 07/21/18 at 16:45 Heparin Sodium (Porcine) (Heparin Sodium) 2,500 unit PRN Q6HRS PRN IV FOR UFH LEVEL LESS THAN 0.2; Start 07/21/18 at 16:45 Heparin Sodium (Porcine) (Heparin Sodium) 1,250 unit PRN Q6HRS PRN IV FOR UFH LEVEL 0.2 - 0.29; Start 07/21/18 at 16:45 Info (Anti-Coagulation Monitoring By Pharmacy) 1 each PRN DAILY PRN MC SEE COMMENTS; Start 07/21/18 at 17:00 Active Scripts Active Reported Aricept (Donepezil Hcl) 10 Mg Tablet 23 Mg PO HS Gabapentin (Gabapentin) 100 Mg Capsule 100 Mg PO TID Namenda (Memantine Hcl) 10 Mg Tablet 10 Mg PO DAILY Levothyroxine Sodium 50 Mcg Tablet 1 Tab PO DAILY Vitals/I & O Vital Sign - Last 24 Hours 07/21/18 07/21/18 07/21/18 07/21/18 15:53 16:00 16:11 17:00 Pulse 87 98 Resp 21 21 B/P (MAP) 137/73 (94) Pulse Ox 96 96 100 O2 Delivery Nasal Cannula Room Air Nasal Cannula Room Air O2 Flow Rate 2.0 2.0 07/21/18 07/21/18 07/21/18 07/21/18 18:00 19:00 20:00 20:00 Temp 99.2 99.2 Pulse 92 98 102 Resp 22 20 B/P (MAP) 118/83 (95) 127/76 (93) 110/69 (83) Pulse Ox 94 98 99 O2 Delivery Room Air Room Air Room Air Room Air 07/21/18 07/21/18 07/21/18 07/22/18 21:00 22:00 23:00 00:00 Pulse 102 87 97 103 Resp 16 16 18 18 B/P (MAP) 97/66 (76) 131/67 (88) 109/65 (80) 116/73 (87) Pulse Ox 99 98 99 100 O2 Delivery Room Air Room Air Room Air Room Air 07/22/18 07/22/18 07/22/18 07/22/18 00:00 00:00 01:00 02:00 Temp 98.0 98.0 Pulse 95 91 Resp 18 16 B/P (MAP) 105/69 (81) 118/71 (87) Pulse Ox 100 100 O2 Delivery Room Air Room Air Room Air 07/22/18 07/22/18 07/22/18 07/22/18 03:00 04:00 04:00 04:16 Temp 98.9 98.9 Pulse 93 86 Resp 16 20 20 B/P (MAP) 124/79 (94) 112/69 (83) Pulse Ox 100 100 100 O2 Delivery Room Air Room Air Room Air Room Air 07/22/18 07/22/18 07/22/18 07/22/18 04:46 05:00 06:00 07:00 Temp 98.0 98.0 Pulse 95 93 93 Resp 18 18 16 14 B/P (MAP) 115/78 (90) 109/90 (96) 96/61 (73) Pulse Ox 100 100 100 100 O2 Delivery Room Air Room Air Room Air 07/22/18 07/22/18 07/22/18 07/22/18 07:52 08:00 09:03 09:26 Pulse 92 118 Resp 12 14 B/P (MAP) 104/61 (75) 114/58 (76) Pulse Ox 100 99 O2 Delivery Room Air Room Air Room Air Room Air 07/22/18 07/22/18 07/22/18 07/22/18 10:00 11:12 11:22 12:03 Pulse 92 92 Resp 14 10 B/P (MAP) 89/47 (61) 94/54 (67) Pulse Ox 100 99 99 O2 Delivery Room Air Room Air Room Air Room Air 07/22/18 12:12 Temp 98.7 98.7 Pulse 92 Resp 12 B/P (MAP) 92/55 (67) Pulse Ox 98 O2 Delivery Room Air Intake and Output 07/21/18 07/21/18 07/22/18 15:00 23:00 07:00 Intake Total 0 ml 360 ml 1544.51 ml Output Total 300 ml 580 ml 295 ml Balance -300 ml -220 ml 1249.51 ml Nutrition Consultation Dietary Evaluation: Recommendations by RD: Increase Calorie Intake Comments: REC continue w/cardiac diet, would consider liberalizing to regular if needed to promote PO intake of meals Consider oral supplements if PO intake of meals <50% Expected Outcomes/Goals: PO intake to meet >75% est needs Malnutrition Findings: Body Fat Depletion (Non Severe: Mild Depletion Weight Status: Appropriate MARK MC MD Jul 22, 2018 13:18
[2018-07-22] MEDS: ANTI-COAG MONITOR BY PHARMACY. MC PRN (16:16)
[2018-07-22] MEDS: HALOPERIDOL 5 MG TABLET. PO PRN (16:34)
--- NOTE | 2018-07-22 18:03 | NUR ---
Pts family asked to have all 4 rails up with the pt if needed due to safety. Patients family in agreement that the pt may have beer with meals. Order given for the pt to have beer with dinner or lunch. Patient extremely impulsive and has continually tried to get out of bed without assistance and without being able to at this time. Orders given for the patient to be 1 to 1 for pts safety.
[2018-07-22] MEDS: HEPARIN for IV BOLUS 10,000 UNIT/10 ML VIAL. IV PRN (21:44)
[2018-07-23] MEDS: MORPHINE SULFATE 4 MG/ML VIAL. IV PRN ×3 (00:01→21:18)
[2018-07-23 03:45] VITALS: BP 132/70
[2018-07-23] MEDS: HEPARIN for IV BOLUS 10,000 UNIT/10 ML VIAL. IV PRN (06:19)
[2018-07-23 06:53] VITALS: BP 115/68
[2018-07-23] MEDS: GABAPENTIN 100 MG CAPSULE. PO SCH ×3 (08:59→21:14)
[2018-07-23] MEDS: MEMANTINE 10 MG TABLET. PO SCH (08:59)
--- NOTE | 2018-07-23 10:13 | PDOC ---
Provider Note Provider Note Vascular surgery follow-up consult Patient is status post right popliteal artery stent graft placement for the treatment of a 5 cm popliteal artery aneurysm. He had distal tibial intervention which has been treated with thrombolysis. His right foot pain has improved. He also has a 2 cm left popliteal artery aneurysm and common iliac artery aneurysm disease as well Examination: Patient has a palpable popliteal pulse. He has a warm right lower extremity. He has excellent Doppler signal in his foot. There is no evidence of digit tip emboli Impression: Patient is doing well following her catheter based treatment of a symptomatic 5 cm popliteal artery aneurysm Recommend continued current treatment. Patient can be transitioned to oral anticoagulation and antiplatelet therapy. MONIQUE HERNANDEZ MD Jul 23, 2018 10:13
[2018-07-23 11:00] VITALS: BP 99/59
[2018-07-23] MEDS: LEVOTHYROXINE 50 MCG TABLET PO SCH (11:33)
--- NOTE | 2018-07-23 12:36 | PDOC ---
PROGRESS NOTES Subjective Subjective Right foot pain improved today Objective Objective Vital Signs Date Time Temp Pulse Resp B/P (MAP) Pulse Ox O2 Delivery O2 Flow Rate FiO2 07/23/18 11:00 97.7 94 18 99/59 (72) 95 Room Air 97.7 07/22/18 18:31 2.0 Intake and Output 07/23/18 07:00 Intake Total 150 ml Output Total 1905 ml Balance -1755 ml Intake Oral 150 ml Output Urine Total 1905 ml # Bowel Movements 1 Physical Exam Abdomen: Soft, No tenderness Heart: Regular rate, Normal S1, Other (HR irregular) Extremities: Other (1+ right foot edema. Rt rook boot) General: Alert, Cooperative, No acute distress HEENT: Atraumatic, Mucous membr. moist/pink Lungs: Clear to auscultation Neuro: Normal speech Psych/Mental Status: Other (anxious ) Skin: Other (cyanosis of right foot. ) Assessment Assessment 1. Critical Limb ischemia; suspected embolic. Bilateral popliteal artery aneurysms, s/p PAINTER APPRENTICE to AT/PT 07/20 and popliteal artery covered stent placement 07/21 by IR. Stop heparin infusion. Vascular following 2. AFIB, newly diagnosed, rate controlled. Start Eliquis for stroke prophylaxis. LV function normal on 2D echo. 3. Hypothyroidism; on replacement therapy Plan Plan of Care Problems Medical Problems: (1) Leg pain Status: Acute (2) PVD (peripheral vascular disease) Status: Acute Comment Review of Relevant I have reviewed the following items mendoza (where applicable) has been applied. Labs Laboratory Tests Test 07/22/18 13:10 07/22/18 20:30 07/23/18 04:15 Heparin Anti-Xa Act, Unfractionated > 1.10 IU/mL (0.30-0.70) 0.21 IU/mL (0.30-0.70) 0.24 IU/mL (0.30-0.70) Medications Current Medications Apixaban (Eliquis) 5 mg BID PO ; Start 07/23/18 at 21:00 Donepezil HCl (Aricept) 10 mg QHS PO ; Start 07/23/18 at 21:00 Gabapentin (Neurontin) 100 mg TID PO Last administered on 07/23/18at 08:59; Start 07/23/18 at 09:00 Levothyroxine Sodium (Synthroid) 50 mcg DAILY06 PO Last administered on 07/23/18at 11:33; Start 07/23/18 at 10:30 Memantine (Namenda) 10 mg DAILY PO Last administered on 07/23/18at 08:59; Start 07/23/18 at 09:00 Non-Formulary Medication (Donepezil Hcl (Aricept)) 23 mg HS PO ; Start 07/23/18 at 21:00; Status UNV Vitals/I & O Vital Sign - Last 24 Hours 07/22/18 07/22/18 07/22/18 07/22/18 14:15 15:00 18:01 18:31 Pulse 86 B/P (MAP) 127/79 (95) Pulse Ox 98 O2 Delivery Room Air Room Air Room Air O2 Flow Rate 2.0 2.0 07/22/18 07/22/18 07/22/18 07/23/18 19:42 20:06 23:00 00:01 Temp 98.1 98.8 98.1 98.8 Pulse 115 100 Resp 18 17 18 B/P (MAP) 122/70 (87) 108/58 (75) Pulse Ox 98 98 98 O2 Delivery Room Air Room Air Room Air Room Air 07/23/18 07/23/18 07/23/18 07/23/18 00:31 03:45 06:53 08:00 Temp 98.4 98.6 98.4 98.6 Pulse 91 94 Resp 18 16 18 B/P (MAP) 132/70 (90) 115/68 (84) Pulse Ox 98 95 95 O2 Delivery Room Air Room Air Room Air Room Air 07/23/18 11:00 Temp 97.7 97.7 Pulse 94 Resp 18 B/P (MAP) 99/59 (72) Pulse Ox 95 O2 Delivery Room Air Intake and Output 07/22/18 07/22/18 07/23/18 15:00 23:00 07:00 Intake Total 150 ml Output Total 155 ml 1750 ml Balance -155 ml -1600 ml BENJI ESCOBAR MD Jul 23, 2018 12:36
[2018-07-23] MEDS: IV NORMAL SALINE 1000ML BAG 1,000 ML IV SCH (14:20)
[2018-07-23 15:00] VITALS: BP 107/62
[2018-07-23 18:49] VITALS: BP 98/60
--- NOTE | 2018-07-23 18:57 | PDOC ---
PROGRESS NOTES Chief Complaint Chief Complaint arterial occlusion, embolic. on TPA, Right Popliteal artery aneurysm. 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 Hypothyroidism PVD cognitive decline History of Present Illness History of Present Illness TPA to complete today on cardiac unit, doing well, some confusion, but calm in afternoon, vasc surg following feels improved, Vitals Vitals Vital Signs Date Time Temp Pulse Resp B/P (MAP) Pulse Ox O2 Delivery O2 Flow Rate FiO2 07/23/18 18:49 98.7 95 18 98/60 (73) 93 Room Air 98.7 07/23/18 14:23 2.0 Physical Exam General: Alert, Cooperative, No acute distress Heart: Regular rate, Normal S1, Other (HR irregular) Lungs: Clear, Wheezing Abdomen: Soft, No tenderness Extremities: Other (1+ right foot edema. Rt rook boot) Skin: Other (cyanosis of right foot. ) Labs LABS Laboratory Tests Test 07/22/18 20:30 07/23/18 04:15 Heparin Anti-Xa Act, Unfractionated 0.21 IU/mL (0.30-0.70) 0.24 IU/mL (0.30-0.70) Assessment and Plan Assessmemt and Plan Problems Medical Problems: (1) Leg pain Status: Acute (2) PVD (peripheral vascular disease) Status: Acute Comment Review of Relevant I have reviewed the following items mendoza (where applicable) has been applied. Labs Laboratory Tests Test 07/22/18 00:10 07/22/18 06:25 07/22/18 13:10 07/22/18 20:30 Heparin Anti-Xa Act, Unfractionated 0.89 IU/mL (0.30-0.70) 0.54 IU/mL (0.30-0.70) > 1.10 IU/mL (0.30-0.70) 0.21 IU/mL (0.30-0.70) White Blood Count 7.1 x10^3/uL (4.0-11.0) Red Blood Count 4.16 x10^6/uL (4.30-5.70) Hemoglobin 11.5 g/dL (13.0-17.5) Hematocrit 35.2 % (39.0-53.0) Mean Corpuscular Volume 85 fL (79-100) Mean Corpuscular Hemoglobin 28 pg (25-35) Mean Corpuscular Hemoglobin Concent 33 g/dL (31-37) Red Cell Distribution Width 16.0 % (11.5-14.5) Platelet Count 157 x10^3/uL (140-400) Neutrophils (%) (Auto) 82 % (31-73) Lymphocytes (%) (Auto) 7 % (24-48) Monocytes (%) (Auto) 7 % (0-9) Eosinophils (%) (Auto) 3 % (0-3) Basophils (%) (Auto) 0 % (0-3) Neutrophils # (Auto) 5.8 x10^3uL (1.8-7.7) Lymphocytes # (Auto) 0.5 x10^3/uL (1.0-4.8) Monocytes # (Auto) 0.5 x10^3/uL (0.0-1.1) Eosinophils # (Auto) 0.2 x10^3/uL (0.0-0.7) Basophils # (Auto) 0.0 x10^3/uL (0.0-0.2) Sodium Level 138 mmol/L (136-145) Potassium Level 3.5 mmol/L (3.5-5.1) Chloride Level 102 mmol/L (98-107) Carbon Dioxide Level 25 mmol/L (21-32) Anion Gap 11 (6-14) Blood Urea Nitrogen 12 mg/dL (8-26) Creatinine 0.9 mg/dL (0.7-1.3) Estimated GFR (Cockcroft-Gault) 79.6 Glucose Level 174 mg/dL (70-99) Calcium Level 8.1 mg/dL (8.5-10.1) Test 07/23/18 04:15 Heparin Anti-Xa Act, Unfractionated 0.24 IU/mL (0.30-0.70) Laboratory Tests Test 07/22/18 20:30 07/23/18 04:15 Heparin Anti-Xa Act, Unfractionated 0.21 IU/mL (0.30-0.70) 0.24 IU/mL (0.30-0.70) Medications Current Medications Morphine Sulfate (Morphine Sulfate) 2 mg 1X ONCE IV Last administered on 07/19/18at 11:19; Start 07/19/18 at 11:00; Stop 07/19/18 at 11:07; Status DC Sodium Chloride 1,000 ml @ 100 mls/hr Q10H IV Last administered on 07/19/18at 11:17; Start 07/19/18 at 10:50; Stop 07/19/18 at 20:49; Status DC Iohexol (Omnipaque 350 Mg/ml) 95 ml 1X ONCE IV Last administered on 07/19/18at 11:45; Start 07/19/18 at 11:45; Stop 07/19/18 at 11:46; Status DC Morphine Sulfate (Morphine Sulfate) 4 mg 1X ONCE IV Last administered on 07/19/18at 11:54; Start 07/19/18 at 12:00; Stop 07/19/18 at 12:01; Status DC Hydromorphone HCl (Dilaudid) 1 mg 1X ONCE IV Last administered on 07/19/18at 14:25; Start 07/19/18 at 14:30; Stop 07/19/18 at 14:31; Status DC Morphine Sulfate (Morphine Sulfate) 4 mg PRN Q2HR PRN IV PAIN Last administered on 07/20/18at 11:14; Start 07/19/18 at 14:45; Stop 07/20/18 at 14:44; Status DC Heparin Sodium (Porcine) (Heparin Sodium) 6,900 unit 1X ONCE IV Last administered on 07/19/18at 21:21; Start 07/19/18 at 19:15; Stop 07/19/18 at 19:21; Status DC Heparin Sodium/ Dextrose 500 ml @ 0 mls/hr CONT PRN IV SEE I/O RECORD; Start 07/19/18 at 19:15; Stop 07/20/18 at 17:25; Status DC Heparin Sodium (Porcine) (Heparin Sodium) 2,150 unit PRN Q6HRS PRN IV FOR UFH LEVEL LESS THAN 0.2 Last administered on 07/20/18at 04:37; Start 07/19/18 at 19:15; Stop 07/21/18 at 16:42; Status DC Sodium Chloride 1,000 ml @ 50 mls/hr Q20H IV Last administered on 07/23/18at 14:20; Start 07/19/18 at 19:45 Lorazepam (Ativan Inj) 2 mg 1X ONCE IM/IV Last administered on 07/20/18at 03:30; Start 07/20/18 at 03:30; Stop 07/20/18 at 03:31; Status DC Haloperidol (Haldol) 5 mg PRN Q6HRS PRN PO AGITATION Last administered on 07/22/18at 16:34; Start 07/20/18 at 03:15 Iodixanol (Visipaque 320) 100 ml STK-MED ONCE .ROUTE ; Start 07/20/18 at 12:30; Stop 07/20/18 at 12:31; Status DC Lidocaine/Sodium Bicarbonate (Buffered Lidocaine 1%) 3 ml STK-MED ONCE .ROUTE ; Start 07/20/18 at 12:30; Stop 07/20/18 at 12:31; Status DC Heparin Sodium/ Sodium Chloride 500 ml @ As Directed STK-MED ONCE .ROUTE ; Start 07/20/18 at 12:30; Stop 07/20/18 at 12:31; Status DC Heparin Sodium/ Sodium Chloride 500 ml @ As Directed STK-MED ONCE .ROUTE ; Start 07/20/18 at 12:31; Stop 07/20/18 at 12:32; Status DC Info (Anti-Coagulation Monitoring By Pharmacy) 1 each PRN DAILY PRN MC SEE COMMENTS Last administered on 07/21/18at 14:55; Start 07/20/18 at 12:45; Stop 07/21/18 at 16:43; Status DC Midazolam HCl (Versed) 2 mg STK-MED ONCE .ROUTE ; Start 07/20/18 at 13:08; Stop 07/20/18 at 13:09; Status DC Fentanyl Citrate (Fentanyl 2ml Vial) 100 mcg STK-MED ONCE .ROUTE ; Start 07/20/18 at 13:09; Stop 07/20/18 at 13:10; Status DC Heparin Sodium (Porcine) (Heparin Sodium) 10,000 unit STK-MED ONCE .ROUTE ; Start 07/20/18 at 13:09; Stop 07/20/18 at 13:10; Status DC Heparin Sodium/ Sodium Chloride (HEPARIN for ARTERIAL LINE FLUSH) 1,000 unit 1X ONCE IART Last administered on 07/20/18at 13:15; Start 07/20/18 at 13:15; Stop 07/20/18 at 13:20; Status DC Heparin Sodium/ Sodium Chloride (HEPARIN for ARTERIAL LINE FLUSH) 1,000 unit 1X ONCE IART Last administered on 07/20/18 13:15; Start 07/20/18 at 13:15; Stop 07/20/18 at 13:20; Status DC Lidocaine/Sodium Bicarbonate (Buffered Lidocaine 1%) 3 ml 1X ONCE IJ Last administered on 07/20/18at 13:15; Start 07/20/18 at 13:15; Stop 07/20/18 at 13:20; Status DC Midazolam HCl (Versed) 2 mg 1X ONCE IV Last administered on 07/20/18at 13:15; Start 07/20/18 at 13:15; Stop 07/20/18 at 13:20; Status DC Fentanyl Citrate (Fentanyl 2ml Vial) 100 mcg 1X ONCE IV Last administered on 07/20/18 13:15; Start 07/20/18 at 13:15; Stop 07/20/18 at 13:20; Status DC Iodixanol (Visipaque 320) 100 ml 1X ONCE IART Last administered on 07/20/18at 13:15; Start 07/20/18 at 13:15; Stop 07/20/18 at 13:20; Status DC Heparin Sodium (Porcine) (Heparin Sodium) 5,000 unit 1X ONCE IV Last administered on 07/20/18at 14:30; Start 07/20/18 at 14:30; Stop 07/20/18 at 14:32; Status DC Lidocaine/Sodium Bicarbonate (Buffered Lidocaine 1%) 3 ml STK-MED ONCE .ROUTE ; Start 07/20/18 at 15:54; Stop 07/20/18 at 15:55; Status DC Heparin Sodium/ Sodium Chloride 500 ml @ As Directed STK-MED ONCE .ROUTE ; Start 07/20/18 at 16:27; Stop 07/20/18 at 16:28; Status DC Alteplase, Recombinant 25 mg/ Sodium Chloride 250 ml @ 10 mls/hr Q25H IV ; Start 07/20/18 at 16:30; Stop 07/20/18 at 17:22; Status DC Alteplase, Recombinant 25 mg/ Sodium Chloride 250 ml @ 10 mls/hr 1X ONCE IV Last administered on 07/20/18at 18:16; Start 07/20/18 at 17:30; Stop 07/21/18 at 18:29; Status DC Heparin Sodium/ Dextrose 500 ml @ 0 mls/hr CONT PRN IV SEE I/O RECORD Last administered on 07/20/18at 18:15; Start 07/20/18 at 17:30; Stop 07/21/18 at 16:42; Status DC Morphine Sulfate (Morphine Sulfate) 4 mg PRN Q2HR PRN IV PAIN Last administered on 07/23/18at 13:53; Start 07/20/18 at 21:00 Haloperidol Lactate (Haldol Inj) 2 mg 1X ONCE IV Last administered on 07/20/18at 21:25; Start 07/20/18 at 22:00; Stop 07/20/18 at 22:01; Status DC Lorazepam (Ativan Inj) 0.25 mg PRN Q4HRS PRN IV ANXIETY / AGITATION Last administered on 07/23/18at 08:18; Start 07/20/18 at 21:30 Iodixanol (Visipaque 320) 100 ml STK-MED ONCE .ROUTE ; Start 07/21/18 at 12:29; Stop 07/21/18 at 12:30; Status DC Heparin Sodium/ Sodium Chloride 500 ml @ As Directed STK-MED ONCE .ROUTE ; Start 07/21/18 at 12:29; Stop 07/21/18 at 12:30; Status DC Lidocaine/Sodium Bicarbonate (Buffered Lidocaine 1%) 3 ml STK-MED ONCE .ROUTE ; Start 07/21/18 at 12:34; Stop 07/21/18 at 12:35; Status DC Lidocaine/Sodium Bicarbonate (Buffered Lidocaine 1%) 3 ml STK-MED ONCE .ROUTE ; Start 07/21/18 at 12:36; Stop 07/21/18 at 12:37; Status DC Midazolam HCl (Versed) 2 mg STK-MED ONCE .ROUTE ; Start 07/21/18 at 12:36; Stop 07/21/18 at 12:37; Status DC Fentanyl Citrate (Fentanyl 2ml Vial) 100 mcg STK-MED ONCE .ROUTE ; Start 07/21/18 at 12:36; Stop 07/21/18 at 12:37; Status DC Heparin Sodium (Porcine) (Heparin Sodium) 10,000 unit STK-MED ONCE .ROUTE ; Start 07/21/18 at 13:28; Stop 07/21/18 at 13:29; Status DC Midazolam HCl (Versed) 2 mg 1X ONCE IV Last administered on 07/21/18 15:53; Start 07/21/18 at 13:45; Stop 07/21/18 at 13:46; Status DC Fentanyl Citrate (Fentanyl 2ml Vial) 100 mcg 1X ONCE IV Last administered on 07/21/18 15:53; Start 07/21/18 at 13:45; Stop 07/21/18 at 13:46; Status DC Iodixanol (Visipaque 320) 100 ml 1X ONCE IART Last administered on 07/21/18 15:52; Start 07/21/18 at 13:45; Stop 07/21/18 at 13:46; Status DC Heparin Sodium (Porcine) (Heparin Sodium) 5,000 unit 1X ONCE IV Last administ ered on 07/21/18 15:58; Start 07/21/18 at 13:30; Stop 07/21/18 at 13:40; Status DC Heparin Sodium/ Sodium Chloride 500 ml @ As Directed STK-MED ONCE .ROUTE ; Start 07/21/18 at 14:40; Stop 07/21/18 at 14:41; Status DC Heparin Sodium/ Sodium Chloride (HEPARIN for ARTERIAL LINE FLUSH) 1,000 unit 1X ONCE IART Last administered on 07/21/18 15:49; Start 07/21/18 at 14:45; Stop 07/21/18 at 14:47; Status DC Heparin Sodium/ Sodium Chloride (HEPARIN for ARTERIAL LINE FLUSH) 1,000 unit 1X ONCE IART Last administered on 07/21/18 15:49; Start 07/21/18 at 14:45; Stop 07/21/18 at 14:47; Status DC Lidocaine/Sodium Bicarbonate (Buffered Lidocaine 1%) 3 ml 1X ONCE IJ Last administered on 07/21/18 15:51; Start 07/21/18 at 14:45; Stop 07/21/18 at 14:47; Status DC Iodixanol (Visipaque 320) 100 ml STK-MED ONCE .ROUTE ; Start 07/21/18 at 14:46; Stop 07/21/18 at 14:47; Status DC Midazolam HCl (Versed) 2 mg STK-MED ONCE .ROUTE ; Start 07/21/18 at 14:52; Stop 07/21/18 at 14:53; Status DC Fentanyl Citrate (Fentanyl 2ml Vial) 100 mcg STK-MED ONCE .ROUTE ; Start 07/21/18 at 14:52; Stop 07/21/18 at 14:53; Status DC Alteplase, Recombinant 10 mg/ Sodium Chloride 100 ml @ 10 mls/hr 1X ONCE IV Last administered on 07/21/18at 15:50; Start 07/21/18 at 15:00; Stop 07/22/18 at 00:59; Status DC Heparin Sodium/ Sodium Chloride 500 ml @ As Directed STK-MED ONCE .ROUTE ; Start 07/21/18 at 14:56; Stop 07/21/18 at 14:57; Status DC Nitroglycerin (Nitroglycerin) 200 mcg 1X ONCE IART Last administered on 07/21/18at 15:55; Start 07/21/18 at 15:15; Stop 07/21/18 at 15:16; Status DC Vancomycin HCl 250 ml @ As Directed STK-MED ONCE .ROUTE ; Start 07/21/18 at 15:08; Stop 07/21/18 at 15:09; Status DC Vancomycin HCl 250 ml @ 250 mls/hr 1X ONCE IV Last administered on 07/21/18at 15:57; Start 07/21/18 at 15:15; Stop 07/21/18 at 16:14; Status DC Heparin Sodium (Porcine) (Heparin Sodium) 6,700 unit 1X ONCE IV Last administered on 07/21/18at 18:14; Start 07/21/18 at 16:45; Stop 07/21/18 at 16:50; Status DC Heparin Sodium/ Dextrose 500 ml @ 0 mls/hr CONT PRN IV SEE I/O RECORD Last administered on 07/22/18at 04:20; Start 07/21/18 at 16:45; Stop 07/23/18 at 11:10; Status DC Heparin Sodium (Porcine) (Heparin Sodium) 2,500 unit PRN Q6HRS PRN IV FOR UFH LEVEL LESS THAN 0.2; Start 07/21/18 at 16:45; Stop 07/23/18 at 11:14; Status DC Heparin Sodium (Porcine) (Heparin Sodium) 1,250 unit PRN Q6HRS PRN IV FOR UFH LEVEL 0.2 - 0.29 Last administered on 07/23/18at 06:19; Start 07/21/18 at 16:45; Stop 07/23/18 at 11:14; Status DC Info (Anti-Coagulation Monitoring By Pharmacy) 1 each PRN DAILY PRN MC SEE COMMENTS Last administered on 07/22/18at 16:16; Start 07/21/18 at 17:00 Gabapentin (Neurontin) 100 mg TID PO Last administered on 07/23/18at 14:17; Start 07/23/18 at 09:00 Non-Formulary Medication (Donepezil Hcl (Aricept)) 23 mg HS PO ; Start 07/23/18 at 21:00; Status UNV Levothyroxine Sodium (Synthroid) 50 mcg DAILY06 PO Last administered on 07/23/18at 11:33; Start 07/23/18 at 10:30 Memantine (Namenda) 10 mg DAILY PO Last administered on 07/23/18at 08:59; Start 07/23/18 at 09:00 Donepezil HCl (Aricept) 10 mg QHS PO ; Start 07/23/18 at 21:00 Apixaban (Eliquis) 5 mg BID PO ; Start 07/23/18 at 21:00 Active Scripts Active Reported Aricept (Donepezil Hcl) 10 Mg Tablet 23 Mg PO HS Gabapentin (Gabapentin) 100 Mg Capsule 100 Mg PO TID Namenda (Memantine Hcl) 10 Mg Tablet 10 Mg PO DAILY Levothyroxine Sodium 50 Mcg Tablet 1 Tab PO DAILY Vitals/I & O Vital Sign - Last 24 Hours 07/22/18 07/22/18 07/22/18 07/23/18 19:42 20:06 23:00 00:01 Temp 98.1 98.8 98.1 98.8 Pulse 115 100 Resp 18 17 18 B/P (MAP) 122/70 (87) 108/58 (75) Pulse Ox 98 98 98 O2 Delivery Room Air Room Air Room Air Room Air 07/23/18 07/23/18 07/23/18 07/23/18 00:31 03:45 06:53 08:00 Temp 98.4 98.6 98.4 98.6 Pulse 91 94 Resp 18 16 18 B/P (MAP) 132/70 (90) 115/68 (84) Pulse Ox 95 95 O2 Delivery Room Air Room Air Room Air 07/23/18 07/23/18 07/23/18 07/23/18 11:00 13:53 14:23 15:00 Temp 97.7 98.2 97.7 98.2 Pulse 94 88 Resp 18 18 B/P (MAP) 99/59 (72) 107/62 (77) Pulse Ox 95 95 95 95 O2 Delivery Room Air Room Air Room Air Room Air O2 Flow Rate 2.0 2.0 07/23/18 18:49 Temp 98.7 98.7 Pulse 95 Resp 18 B/P (MAP) 98/60 (73) Pulse Ox 93 O2 Delivery Room Air Intake and Output 07/22/18 07/22/18 07/23/18 15:00 23:00 07:00 Intake Total 150 ml Output Total 155 ml 1750 ml Balance -155 ml -1600 ml Nutrition Consultation Dietary Evaluation: Recommendations by RD: Increase Calorie Intake Comments: REC continue w/cardiac diet, would consider liberalizing to regular if needed to promote PO intake of meals Consider oral supplements if PO intake of meals <50% Expected Outcomes/Goals: PO intake to meet >75% est needs Malnutrition Findings: Body Fat Depletion (Non Severe: Mild Depletion Weight Status: Appropriate MARK MC MD Jul 23, 2018 18:57
[2018-07-23] MEDS ORDERED: DONEPEZIL HCL 10 MG TABLET. PO SCH (21:00)
[2018-07-23] MEDS ORDERED: DONEPEZIL HCL 23 MG PO SCH (21:00)
[2018-07-23] MEDS: APIXABAN 5 MG TABLET. PO SCH (21:13)
[2018-07-23 22:37] VITALS: BP 113/79
[2018-07-24 05:22] VITALS: BP 92/52
[2018-07-24] MEDS: MORPHINE SULFATE 4 MG/ML VIAL. IV PRN ×3 (06:45→20:00)
[2018-07-24] MEDS: LEVOTHYROXINE 50 MCG TABLET PO SCH (06:45)
[2018-07-24 06:57] VITALS: BP 122/67
--- NOTE | 2018-07-24 08:20 | PDOC ---
PROGRESS NOTES Chief Complaint Chief Complaint arterial occlusion, embolic. s/p thrombectomy and TPA, Right Popliteal artery aneurysm. 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 Hypothyroidism PVD cognitive decline H/O prostate cancer History of Present Illness History of Present Illness Seen on cardiac unit, doing well, some confusion, but more alert today. C/o RLE pain that is still bothering him an hour after 2mg IV morphine. vasc surg following feels improved, Will add oral pain control today Cont eliquis Stop aricept Pull toscano, voiding trial Can try for SNF d/c later today or tomorrow Vitals Vitals Vital Signs Date Time Temp Pulse Resp B/P (MAP) Pulse Ox O2 Delivery O2 Flow Rate FiO2 07/24/18 06:57 98.3 79 16 122/67 (85) 98 Room Air 98.3 07/23/18 14:23 2.0 Physical Exam General: Alert, Cooperative, No acute distress Heart: Regular rate, Normal S1, Other (HR irregular) Lungs: Clear, Wheezing Abdomen: Soft, No tenderness Extremities: Other (1+ right foot edema. Rt rook boot) Skin: Other (cyanosis of right foot. ) Assessment and Plan Assessmemt and Plan Problems Medical Problems: (1) Leg pain Status: Acute (2) PVD (peripheral vascular disease) Status: Acute Comment Review of Relevant I have reviewed the following items mendoza (where applicable) has been applied. Labs Laboratory Tests Test 07/22/18 13:10 07/22/18 20:30 07/23/18 04:15 Heparin Anti-Xa Act, Unfractionated > 1.10 IU/mL (0.30-0.70) 0.21 IU/mL (0.30-0.70) 0.24 IU/mL (0.30-0.70) Medications Current Medications Morphine Sulfate (Morphine Sulfate) 2 mg 1X ONCE IV Last administered on 07/19/18at 11:19; Start 07/19/18 at 11:00; Stop 07/19/18 at 11:07; Status DC Sodium Chloride 1,000 ml @ 100 mls/hr Q10H IV Last administered on 07/19/18at 11:17; Start 07/19/18 at 10:50; Stop 07/19/18 at 20:49; Status DC Iohexol (Omnipaque 350 Mg/ml) 95 ml 1X ONCE IV Last administered on 07/19/18 11:45; Start 07/19/18 at 11:45; Stop 07/19/18 at 11:46; Status DC Morphine Sulfate (Morphine Sulfate) 4 mg 1X ONCE IV Last administered on 07/19/18 11:54; Start 07/19/18 at 12:00; Stop 07/19/18 at 12:01; Status DC Hydromorphone HCl (Dilaudid) 1 mg 1X ONCE IV Last administered on 07/19/18 14:25; Start 07/19/18 at 14:30; Stop 07/19/18 at 14:31; Status DC Morphine Sulfate (Morphine Sulfate) 4 mg PRN Q2HR PRN IV PAIN Last administered on 07/20/18 11:14; Start 07/19/18 at 14:45; Stop 07/20/18 at 14:44; Status DC Heparin Sodium (Porcine) (Heparin Sodium) 6,900 unit 1X ONCE IV Last administered on 07/19/18at 21:21; Start 07/19/18 at 19:15; Stop 07/19/18 at 19:21; Status DC Heparin Sodium/ Dextrose 500 ml @ 0 mls/hr CONT PRN IV SEE I/O RECORD; Start 07/19/18 at 19:15; Stop 07/20/18 at 17:25; Status DC Heparin Sodium (Porcine) (Heparin Sodium) 2,150 unit PRN Q6HRS PRN IV FOR UFH LEVEL LESS THAN 0.2 Last administered on 07/20/18 04:37; Start 07/19/18 at 19:15; Stop 07/21/18 at 16:42; Status DC Sodium Chloride 1,000 ml @ 50 mls/hr Q20H IV Last administered on 07/23/18 14:20; Start 07/19/18 at 19:45 Lorazepam (Ativan Inj) 2 mg 1X ONCE IM/IV Last administered on 07/20/18 03:30; Start 07/20/18 at 03:30; Stop 07/20/18 at 03:31; Status DC Haloperidol (Haldol) 5 mg PRN Q6HRS PRN PO AGITATION Last administered on 07/22/18 16:34; Start 07/20/18 at 03:15 Iodixanol (Visipaque 320) 100 ml STK-MED ONCE .ROUTE ; Start 07/20/18 at 12:30; Stop 07/20/18 at 12:31; Status DC Lidocaine/Sodium Bicarbonate (Buffered Lidocaine 1%) 3 ml STK-MED ONCE .ROUTE ; Start 07/20/18 at 12:30; Stop 07/20/18 at 12:31; Status DC Heparin Sodium/ Sodium Chloride 500 ml @ As Directed STK-MED ONCE .ROUTE ; Start 07/20/18 at 12:30; Stop 07/20/18 at 12:31; Status DC Heparin Sodium/ Sodium Chloride 500 ml @ As Directed STK-MED ONCE .ROUTE ; Start 07/20/18 at 12:31; Stop 07/20/18 at 12:32; Status DC Info (Anti-Coagulation Monitoring By Pharmacy) 1 each PRN DAILY PRN MC SEE COMMENTS Last administered on 07/21/18at 14:55; Start 07/20/18 at 12:45; Stop 07/21/18 at 16:43; Status DC Midazolam HCl (Versed) 2 mg STK-MED ONCE .ROUTE ; Start 07/20/18 at 13:08; Stop 07/20/18 at 13:09; Status DC Fentanyl Citrate (Fentanyl 2ml Vial) 100 mcg STK-MED ONCE .ROUTE ; Start 07/20/18 at 13:09; Stop 07/20/18 at 13:10; Status DC Heparin Sodium (Porcine) (Heparin Sodium) 10,000 unit STK-MED ONCE .ROUTE ; Start 07/20/18 at 13:09; Stop 07/20/18 at 13:10; Status DC Heparin Sodium/ Sodium Chloride (HEPARIN for ARTERIAL LINE FLUSH) 1,000 unit 1X ONCE IART Last administered on 07/20/18at 13:15; Start 07/20/18 at 13:15; Stop 07/20/18 at 13:20; Status DC Heparin Sodium/ Sodium Chloride (HEPARIN for ARTERIAL LINE FLUSH) 1,000 unit 1X ONCE IART Last administered on 07/20/18at 13:15; Start 07/20/18 at 13:15; Stop 07/20/18 at 13:20; Status DC Lidocaine/Sodium Bicarbonate (Buffered Lidocaine 1%) 3 ml 1X ONCE IJ Last administered on 07/20/18at 13:15; Start 07/20/18 at 13:15; Stop 07/20/18 at 13:20; Status DC Midazolam HCl (Versed) 2 mg 1X ONCE IV Last administered on 07/20/18at 13:15; Start 07/20/18 at 13:15; Stop 07/20/18 at 13:20; Status DC Fentanyl Citrate (Fentanyl 2ml Vial) 100 mcg 1X ONCE IV Last administered on 07/20/18at 13:15; Start 07/20/18 at 13:15; Stop 07/20/18 at 13:20; Status DC Iodixanol (Visipaque 320) 100 ml 1X ONCE IART Last administered on 07/20/18at 13:15; Start 07/20/18 at 13:15; Stop 07/20/18 at 13:20; Status DC Heparin Sodium (Porcine) (Heparin Sodium) 5,000 unit 1X ONCE IV Last administered on 07/20/18at 14:30; Start 07/20/18 at 14:30; Stop 07/20/18 at 14:32; Status DC Lidocaine/Sodium Bicarbonate (Buffered Lidocaine 1%) 3 ml STK-MED ONCE .ROUTE ; Start 07/20/18 at 15:54; Stop 07/20/18 at 15:55; Status DC Heparin Sodium/ Sodium Chloride 500 ml @ As Directed STK-MED ONCE .ROUTE ; Start 07/20/18 at 16:27; Stop 07/20/18 at 16:28; Status DC Alteplase, Recombinant 25 mg/ Sodium Chloride 250 ml @ 10 mls/hr Q25H IV ; Start 07/20/18 at 16:30; Stop 07/20/18 at 17:22; Status DC Alteplase, Recombinant 25 mg/ Sodium Chloride 250 ml @ 10 mls/hr 1X ONCE IV Last administered on 07/20/18at 18:16; Start 07/20/18 at 17:30; Stop 07/21/18 at 18:29; Status DC Heparin Sodium/ Dextrose 500 ml @ 0 mls/hr CONT PRN IV SEE I/O RECORD Last administered on 07/20/18at 18:15; Start 07/20/18 at 17:30; Stop 07/21/18 at 16:42; Status DC Morphine Sulfate (Morphine Sulfate) 4 mg PRN Q2HR PRN IV PAIN Last administered on 07/24/18at 06:45; Start 07/20/18 at 21:00 Haloperidol Lactate (Haldol Inj) 2 mg 1X ONCE IV Last administered on 07/20/18at 21:25; Start 07/20/18 at 22:00; Stop 07/20/18 at 22:01; Status DC Lorazepam (Ativan Inj) 0.25 mg PRN Q4HRS PRN IV ANXIETY / AGITATION Last administered on 07/23/18at 08:18; Start 07/20/18 at 21:30 Iodixanol (Visipaque 320) 100 ml STK-MED ONCE .ROUTE ; Start 07/21/18 at 12:29; Stop 07/21/18 at 12:30; Status DC Heparin Sodium/ Sodium Chloride 500 ml @ As Directed STK-MED ONCE .ROUTE ; Start 07/21/18 at 12:29; Stop 07/21/18 at 12:30; Status DC Lidocaine/Sodium Bicarbonate (Buffered Lidocaine 1%) 3 ml STK-MED ONCE .ROUTE ; Start 07/21/18 at 12:34; Stop 07/21/18 at 12:35; Status DC Lidocaine/Sodium Bicarbonate (Buffered Lidocaine 1%) 3 ml STK-MED ONCE .ROUTE ; Start 07/21/18 at 12:36; Stop 07/21/18 at 12:37; Status DC Midazolam HCl (Versed) 2 mg STK-MED ONCE .ROUTE ; Start 07/21/18 at 12:36; Stop 07/21/18 at 12:37; Status DC Fentanyl Citrate (Fentanyl 2ml Vial) 100 mcg STK-MED ONCE .ROUTE ; Start 07/21/18 at 12:36; Stop 07/21/18 at 12:37; Status DC Heparin Sodium (Porcine) (Heparin Sodium) 10,000 unit STK-MED ONCE .ROUTE ; Start 07/21/18 at 13:28; Stop 07/21/18 at 13:29; Status DC Midazolam HCl (Versed) 2 mg 1X ONCE IV Last administered on 07/21/18at 15:53; Start 07/21/18 at 13:45; Stop 07/21/18 at 13:46; Status DC Fentanyl Citrate (Fentanyl 2ml Vial) 100 mcg 1X ONCE IV Last administered on 07/21/18at 15:53; Start 07/21/18 at 13:45; Stop 07/21/18 at 13:46; Status DC Iodixanol (Visipaque 320) 100 ml 1X ONCE IART Last administered on 07/21/18at 15:52; Start 07/21/18 at 13:45; Stop 07/21/18 at 13:46; Status DC Heparin Sodium (Porcine) (Heparin Sodium) 5,000 unit 1X ONCE IV Last administered on 07/21/18at 15:58; Start 07/21/18 at 13:30; Stop 07/21/18 at 13:40; Status DC Heparin Sodium/ Sodium Chloride 500 ml @ As Directed STK-MED ONCE .ROUTE ; Start 07/21/18 at 14:40; Stop 07/21/18 at 14:41; Status DC Heparin Sodium/ Sodium Chloride (HEPARIN for ARTERIAL LINE FLUSH) 1,000 unit 1X ONCE IART Last administered on 07/21/18at 15:49; Start 07/21/18 at 14:45; Stop 07/21/18 at 14:47; Status DC Heparin Sodium/ Sodium Chloride (HEPARIN for ARTERIAL LINE FLUSH) 1,000 unit 1X ONCE IART Last administered on 07/21/18at 15:49; Start 07/21/18 at 14:45; Stop 07/21/18 at 14:47; Status DC Lidocaine/Sodium Bicarbonate (Buffered Lidocaine 1%) 3 ml 1X ONCE IJ Last administered on 07/21/18at 15:51; Start 07/21/18 at 14:45; Stop 07/21/18 at 14:47; Status DC Iodixanol (Visipaque 320) 100 ml STK-MED ONCE .ROUTE ; Start 07/21/18 at 14:46; Stop 07/21/18 at 14:47; Status DC Midazolam HCl (Versed) 2 mg STK-MED ONCE .ROUTE ; Start 07/21/18 at 14:52; Stop 07/21/18 at 14:53; Status DC Fentanyl Citrate (Fentanyl 2ml Vial) 100 mcg STK-MED ONCE .ROUTE ; Start 07/21/18 at 14:52; Stop 07/21/18 at 14:53; Status DC Alteplase, Recombinant 10 mg/ Sodium Chloride 100 ml @ 10 mls/hr 1X ONCE IV Last administered on 07/21/18at 15:50; Start 07/21/18 at 15:00; Stop 07/22/18 at 00:59; Status DC Heparin Sodium/ Sodium Chloride 500 ml @ As Directed STK-MED ONCE .ROUTE ; Start 07/21/18 at 14:56; Stop 07/21/18 at 14:57; Status DC Nitroglycerin (Nitroglycerin) 200 mcg 1X ONCE IART Last administered on 07/21/18at 15:55; Start 07/21/18 at 15:15; Stop 07/21/18 at 15:16; Status DC Vancomycin HCl 250 ml @ As Directed STK-MED ONCE .ROUTE ; Start 07/21/18 at 15:08; Stop 07/21/18 at 15:09; Status DC Vancomycin HCl 250 ml @ 250 mls/hr 1X ONCE IV Last administered on 07/21/18at 15:57; Start 07/21/18 at 15:15; Stop 07/21/18 at 16:14; Status DC Heparin Sodium (Porcine) (Heparin Sodium) 6,700 unit 1X ONCE IV Last administered on 07/21/18at 18:14; Start 07/21/18 at 16:45; Stop 07/21/18 at 16:50; Status DC Heparin Sodium/ Dextrose 500 ml @ 0 mls/hr CONT PRN IV SEE I/O RECORD Last administered on 07/22/18at 04:20; Start 07/21/18 at 16:45; Stop 07/23/18 at 11:10; Status DC Heparin Sodium (Porcine) (Heparin Sodium) 2,500 unit PRN Q6HRS PRN IV FOR UFH LEVEL LESS THAN 0.2; Start 07/21/18 at 16:45; Stop 07/23/18 at 11:14; Status DC Heparin Sodium (Porcine) (Heparin Sodium) 1,250 unit PRN Q6HRS PRN IV FOR UFH LEVEL 0.2 - 0.29 Last administered on 07/23/18at 06:19; Start 07/21/18 at 16:45; Stop 07/23/18 at 11:14; Status DC Info (Anti-Coagulation Monitoring By Pharmacy) 1 each PRN DAILY PRN MC SEE COMMENTS Last administered on 07/22/18at 16:16; Start 07/21/18 at 17:00 Gabapentin (Neurontin) 100 mg TID PO Last administered on 07/23/18at 21:14; Start 07/23/18 at 09:00 Non-Formulary Medication (Donepezil Hcl (Aricept)) 23 mg HS PO ; Start 07/23/18 at 21:00; Status UNV Levothyroxine Sodium (Synthroid) 50 mcg DAILY06 PO Last administered on 07/24/18at 06:45; Start 07/23/18 at 10:30 Memantine (Namenda) 10 mg DAILY PO Last administered on 07/23/18at 08:59; Start 07/23/18 at 09:00 Donepezil HCl (Aricept) 10 mg QHS PO Last administered on 07/23/18at 21:13; Start 07/23/18 at 21:00 Apixaban (Eliquis) 5 mg BID PO Last administered on 07/23/18at 21:13; Start 07/23/18 at 21:00 Active Scripts Active Reported Aricept (Donepezil Hcl) 10 Mg Tablet 23 Mg PO HS Gabapentin (Gabapentin) 100 Mg Capsule 100 Mg PO TID Namenda (Memantine Hcl) 10 Mg Tablet 10 Mg PO DAILY Levothyroxine Sodium 50 Mcg Tablet 1 Tab PO DAILY Vitals/I & O Vital Sign - Last 24 Hours 07/23/18 07/23/18 07/23/18 07/23/18 11:00 13:53 14:23 15:00 Temp 97.7 98.2 97.7 98.2 Pulse 94 88 Resp 18 18 B/P (MAP) 99/59 (72) 107/62 (77) Pulse Ox 95 95 95 O2 Delivery Room Air Room Air Room Air O2 Flow Rate 2.0 2.0 07/23/18 07/23/18 07/23/18 07/23/18 18:49 20:00 21:18 21:50 Temp 98.7 98.7 Pulse 95 Resp 18 22 18 B/P (MAP) 98/60 (73) Pulse Ox 93 93 97 O2 Delivery Room Air Room Air Room Air Room Air 07/23/18 07/24/18 07/24/18 07/24/18 22:37 03:52 05:22 06:45 Temp 98.3 98.4 98.3 98.4 Pulse 70 68 77 Resp 16 16 20 B/P (MAP) 113/79 (90) 92/52 (65) Pulse Ox 97 95 95 O2 Delivery Room Air Room Air Room Air 07/24/18 06:57 Temp 98.3 98.3 Pulse 79 Resp 16 B/P (MAP) 122/67 (85) Pulse Ox 98 O2 Delivery Room Air Intake and Output 07/23/18 07/23/18 07/24/18 15:00 23:00 07:00 Intake Total 600 ml 400 ml 900 ml Output Total 1100 ml 1100 ml Balance 600 ml -700 ml -200 ml Nutrition Consultation Dietary Evaluation: Recommendations by RD: Increase Calorie Intake Comments: REC continue w/cardiac diet, would consider liberalizing to regular if needed to promote PO intake of meals Consider oral supplements if PO intake of meals <50% Expected Outcomes/Goals: PO intake to meet >75% est needs Malnutrition Findings: Body Fat Depletion (Non Severe: Mild Depletion Weight Status: Appropriate QAMAR SHARMA MD Jul 24, 2018 08:20
[2018-07-24] MEDS: MEMANTINE 10 MG TABLET. PO SCH (08:31)
[2018-07-24] MEDS: APIXABAN 5 MG TABLET. PO SCH ×2 (08:31→20:04)
[2018-07-24] MEDS: GABAPENTIN 100 MG CAPSULE. PO SCH ×3 (08:31→20:04)
[2018-07-24] MEDS ORDERED: ALTEPLASE 1MG SYRINGE. INT CAT ONE (09:00)
--- NOTE | 2018-07-24 10:16 | PDOC ---
PROGRESS NOTES Subjective Subjective Continues to complain of right foot pain but improving slowly Objective Objective Vital Signs Date Time Temp Pulse Resp B/P (MAP) Pulse Ox O2 Delivery O2 Flow Rate FiO2 07/24/18 08:00 Room Air 1.0 07/24/18 07:15 98 07/24/18 06:57 98.3 79 16 122/67 (85) 98.3 Intake and Output 07/24/18 07:00 Intake Total 1900 ml Output Total 2200 ml Balance -300 ml Intake Oral 1300 ml IV Total 600 ml Output Urine Total 2200 ml Physical Exam Abdomen: Soft, No tenderness Heart: Regular rate, Normal S1, Other (HR irregular) Extremities: Other (1+ right foot edema. Rt rook boot) General: Alert, Cooperative, No acute distress HEENT: Atraumatic, Mucous membr. moist/pink Lungs: Clear to auscultation Neuro: Normal speech Psych/Mental Status: Other (anxious ) Skin: Other (cyanosis of right foot. ) Assessment Assessment 1. Critical Limb ischemia; suspected embolic. Bilateral popliteal artery aneurysms, s/p INSULATION NOZZLEMAN to AT/PT 07/20 and popliteal artery covered stent placement 07/21 by IR. Vascular following 2. AFIB, newly diagnosed, rate controlled. Continue Eliquis for stroke prophylaxis. LV function normal on 2D echo. 3. Hypothyroidism; on replacement therapy Plan Plan of Care Problems Medical Problems: (1) Leg pain Status: Acute (2) PVD (peripheral vascular disease) Status: Acute Comment Review of Relevant I have reviewed the following items mendoza (where applicable) has been applied. Medications Current Medications Alteplase, Recombinant (Cathflo For Central Catheter Clearance) 1 mg 1X ONCE INT CAT Last administered on 07/24/18at 10:04; Start 07/24/18 at 09:00; Stop 07/24/18 at 09:01; Status DC Apixaban (Eliquis) 5 mg BID PO Last administered on 07/24/18at 08:31; Start 07/23/18 at 21:00 Donepezil HCl (Aricept) 10 mg QHS PO Last administered on 07/23/18at 21:13; Start 07/23/18 at 21:00 Levothyroxine Sodium (Synthroid) 50 mcg DAILY06 PO Last administered on 07/24/18at 06:45; Start 07/23/18 at 10:30 Non-Formulary Medication (Donepezil Hcl (Aricept)) 23 mg HS PO ; Start 07/23/18 at 21:00; Status UNV Vitals/I & O Vital Sign - Last 24 Hours 07/23/18 07/23/18 07/23/18 07/23/18 11:00 13:53 15:00 18:49 Temp 97.7 98.2 98.7 97.7 98.2 98.7 Pulse 94 88 95 Resp 18 18 18 B/P (MAP) 99/59 (72) 107/62 (77) 98/60 (73) Pulse Ox 95 95 95 93 O2 Delivery Room Air Room Air Room Air Room Air O2 Flow Rate 2.0 07/23/18 07/23/18 07/23/18 07/23/18 20:00 21:18 21:50 22:37 Temp 98.3 98.3 Pulse 70 Resp 22 18 16 B/P (MAP) 113/79 (90) Pulse Ox 93 97 O2 Delivery Room Air Room Air Room Air 07/24/18 07/24/18 07/24/18 07/24/18 03:52 05:22 06:45 06:57 Temp 98.4 98.3 98.4 98.3 Pulse 68 77 79 Resp 16 20 16 B/P (MAP) 92/52 (65) 122/67 (85) Pulse Ox 95 95 98 O2 Delivery Room Air Room Air Room Air 07/24/18 07/24/18 07:15 08:00 Pulse Ox 98 O2 Delivery Room Air Room Air O2 Flow Rate 2.0 1.0 Intake and Output 07/23/18 07/23/18 07/24/18 15:00 23:00 07:00 Intake Total 600 ml 400 ml 900 ml Output Total 1100 ml 1100 ml Balance 600 ml -700 ml -200 ml BENJI ESCOBAR MD Jul 24, 2018 10:16
[2018-07-24] MEDS: IV NORMAL SALINE 1000ML BAG 1,000 ML IV SCH (10:41)
[2018-07-24 11:00] VITALS: BP 108/64
--- NOTE | 2018-07-24 12:00 | NUR ---
SS following for discharge planning. SS reviewed pt chart. Pt is from home and is currently on room air. PT/OT recommended correction unit. SS met with pt and pt's daughter in room to discuss discharge planning and correction unit. Pt's daughter requested referral be sent to [facility], ; fax [phone]. SS phoned and faxed referral. Petra from [facility] reported that she would contact SS with acceptance decision. SS will await acceptance decision and will proceed accordingly.
--- NOTE | 2018-07-24 14:51 | PDOC ---
PROGRESS NOTES Subjective Subjective Vascular surgery follow-up consult Patient is status post right popliteal artery stent graft placement for the treatment of a 5 cm popliteal artery aneurysm. 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 He also had distal tibial intervention which has been treated with thrombolysis. His right foot pain is still present, but has improved. The pain is now more localized in his 2-4 toes, less in the midfoot. He takes Eliquis and was not started on antiplatelet therapy. Objective Objective Vital Signs Date Time Temp Pulse Resp B/P (MAP) Pulse Ox O2 Delivery O2 Flow Rate FiO2 07/24/18 11:00 97.7 73 16 108/64 (79) 94 Room Air 97.7 07/24/18 10:40 1.0 Intake and Output 07/24/18 07:00 Intake Total 1900 ml Output Total 2200 ml Balance -300 ml Intake Oral 1300 ml IV Total 600 ml Output Urine Total 2200 ml Physical Exam Physical Exam VSS, afebrile, HR 73 Abdomen: Soft, No tenderness Heart: Regular rate Extremities: Other (Left popliteal pulse prominent, left DP palpable. Right foot cannot appreciate pulses, however great doppler signals. Right 2-4 toes are still slightly more pale than rest of foot with minimal purple discoloration. Cap refill about 4 sec. Hyperemia to midfoot and proximal to ankle. ) General: Alert, Cooperative, No acute distress Lungs: Normal air movement MUSCULOSKELETAL: No swelling, Other (Pain to right toes 2-4 to touch, worse with movement) Neuro: Normal speech, Normal tone, Sensation intact Psych/Mental Status: Mental status NL, Mood NL Skin: No breakdown, No significant lesion Assessment Assessment Problems Medical Problems: (1) Leg pain Status: Acute (2) PVD (peripheral vascular disease) Status: Acute Plan Plan of Care S/P right popliteal artery stent graft placement for the treatment of aneurysm and tibial intervention treated with focal thrombolysis, thrombectomy, and angioplasty. 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 Patient is doing well following his catheter based treatment of a symptomatic 5 cm popliteal artery aneurysm. He still has some right 2-4 toe pain and mild discoloration. Results of IR treatment noted poor forefoot flow even post procedure, likely due to microvascular disease with possible microemboli. This will hopefully resolve with time. Recommend Continue Eliquis and I will start the patient on 81mg aspirin daily for antiplatelet therapy. Continue to increase activity as tolerated. I discussed with patient and family member present management options for left popliteal and iliac aneurysms, as these are asymptomatic and smaller we can have the patient follow up with us regarding this. Surgeon can discuss further management options at that time. Comment Review of Relevant I have reviewed the following items mendoza (where applicable) has been applied. Labs Laboratory Tests Test 07/22/18 20:30 07/23/18 04:15 Heparin Anti-Xa Act, Unfractionated 0.21 IU/mL (0.30-0.70) 0.24 IU/mL (0.30-0.70) Medications Current Medications Morphine Sulfate (Morphine Sulfate) 2 mg 1X ONCE IV Last administered on 07/19/18at 11:19; Start 07/19/18 at 11:00; Stop 07/19/18 at 11:07; Status DC Sodium Chloride 1,000 ml @ 100 mls/hr Q10H IV Last administered on 07/19/18at 11:17; Start 07/19/18 at 10:50; Stop 07/19/18 at 20:49; Status DC Iohexol (Omnipaque 350 Mg/ml) 95 ml 1X ONCE IV Last administered on 07/19/18at 11:45; Start 07/19/18 at 11:45; Stop 07/19/18 at 11:46; Status DC Morphine Sulfate (Morphine Sulfate) 4 mg 1X ONCE IV Last administered on 07/19/18at 11:54; Start 07/19/18 at 12:00; Stop 07/19/18 at 12:01; Status DC Hydromorphone HCl (Dilaudid) 1 mg 1X ONCE IV Last administered on 07/19/18at 14:25; Start 07/19/18 at 14:30; Stop 07/19/18 at 14:31; Status DC Morphine Sulfate (Morphine Sulfate) 4 mg PRN Q2HR PRN IV PAIN Last administered on 07/20/18at 11:14; Start 07/19/18 at 14:45; Stop 07/20/18 at 14:44; Status DC Heparin Sodium (Porcine) (Heparin Sodium) 6,900 unit 1X ONCE IV Last administered on 07/19/18at 21:21; Start 07/19/18 at 19:15; Stop 07/19/18 at 19:21; Status DC Heparin Sodium/ Dextrose 500 ml @ 0 mls/hr CONT PRN IV SEE I/O RECORD; Start 07/19/18 at 19:15; Stop 07/20/18 at 17:25; Status DC Heparin Sodium (Porcine) (Heparin Sodium) 2,150 unit PRN Q6HRS PRN IV FOR UFH LEVEL LESS THAN 0.2 Last administered on 07/20/18at 04:37; Start 07/19/18 at 19:15; Stop 07/21/18 at 16:42; Status DC Sodium Chloride 1,000 ml @ 50 mls/hr Q20H IV Last administered on 07/24/18at 10:41; Start 07/19/18 at 19:45 Lorazepam (Ativan Inj) 2 mg 1X ONCE IM/IV Last administered on 07/20/18at 03:30; Start 07/20/18 at 03:30; Stop 07/20/18 at 03:31; Status DC Haloperidol (Haldol) 5 mg PRN Q6HRS PRN PO AGITATION Last administered on 07/22/18at 16:34; Start 07/20/18 at 03:15 Iodixanol (Visipaque 320) 100 ml STK-MED ONCE .ROUTE ; Start 07/20/18 at 12:30; Stop 07/20/18 at 12:31; Status DC Lidocaine/Sodium Bicarbonate (Buffered Lidocaine 1%) 3 ml STK-MED ONCE .ROUTE ; Start 07/20/18 at 12:30; Stop 07/20/18 at 12:31; Status DC Heparin Sodium/ Sodium Chloride 500 ml @ As Directed STK-MED ONCE .ROUTE ; Start 07/20/18 at 12:30; Stop 07/20/18 at 12:31; Status DC Heparin Sodium/ Sodium Chloride 500 ml @ As Directed STK-MED ONCE .ROUTE ; Start 07/20/18 at 12:31; Stop 07/20/18 at 12:32; Status DC Info (Anti-Coagulation Monitoring By Pharmacy) 1 each PRN DAILY PRN MC SEE COMMENTS Last administered on 07/21/18at 14:55; Start 07/20/18 at 12:45; Stop 07/21/18 at 16:43; Status DC Midazolam HCl (Versed) 2 mg STK-MED ONCE .ROUTE ; Start 07/20/18 at 13:08; Stop 07/20/18 at 13:09; Status DC Fentanyl Citrate (Fentanyl 2ml Vial) 100 mcg STK-MED ONCE .ROUTE ; Start 07/20/18 at 13:09; Stop 07/20/18 at 13:10; Status DC Heparin Sodium (Porcine) (Heparin Sodium) 10,000 unit STK-MED ONCE .ROUTE ; Start 07/20/18 at 13:09; Stop 07/20/18 at 13:10; Status DC Heparin Sodium/ Sodium Chloride (HEPARIN for ARTERIAL LINE FLUSH) 1,000 unit 1X ONCE IART Last administered on 07/20/18at 13:15; Start 07/20/18 at 13:15; Stop 07/20/18 at 13:20; Status DC Heparin Sodium/ Sodium Chloride (HEPARIN for ARTERIAL LINE FLUSH) 1,000 unit 1X ONCE IART Last administered on 07/20/18at 13:15; Start 07/20/18 at 13:15; Stop 07/20/18 at 13:20; Status DC Lidocaine/Sodium Bicarbonate (Buffered Lidocaine 1%) 3 ml 1X ONCE IJ Last administered on 07/20/18at 13:15; Start 07/20/18 at 13:15; Stop 07/20/18 at 13:20; Status DC Midazolam HCl (Versed) 2 mg 1X ONCE IV Last administered on 07/20/18at 13:15; Start 07/20/18 at 13:15; Stop 07/20/18 at 13:20; Status DC Fentanyl Citrate (Fentanyl 2ml Vial) 100 mcg 1X ONCE IV Last administered on 07/20/18at 13:15; Start 07/20/18 at 13:15; Stop 07/20/18 at 13:20; Status DC Iodixanol (Visipaque 320) 100 ml 1X ONCE IART Last administered on 07/20/18at 13:15; Start 07/20/18 at 13:15; Stop 07/20/18 at 13:20; Status DC Heparin Sodium (Porcine) (Heparin Sodium) 5,000 unit 1X ONCE IV Last administered on 07/20/18at 14:30; Start 07/20/18 at 14:30; Stop 07/20/18 at 14:32; Status DC Lidocaine/Sodium Bicarbonate (Buffered Lidocaine 1%) 3 ml STK-MED ONCE .ROUTE ; Start 07/20/18 at 15:54; Stop 07/20/18 at 15:55; Status DC Heparin Sodium/ Sodium Chloride 500 ml @ As Directed STK-MED ONCE .ROUTE ; Start 07/20/18 at 16:27; Stop 07/20/18 at 16:28; Status DC Alteplase, Recombinant 25 mg/ Sodium Chloride 250 ml @ 10 mls/hr Q25H IV ; Start 07/20/18 at 16:30; Stop 07/20/18 at 17:22; Status DC Alteplase, Recombinant 25 mg/ Sodium Chloride 250 ml @ 10 mls/hr 1X ONCE IV Last administered on 07/20/18at 18:16; Start 07/20/18 at 17:30; Stop 07/21/18 at 18:29; Status DC Heparin Sodium/ Dextrose 500 ml @ 0 mls/hr CONT PRN IV SEE I/O RECORD Last administered on 07/20/18at 18:15; Start 07/20/18 at 17:30; Stop 07/21/18 at 16:42; Status DC Morphine Sulfate (Morphine Sulfate) 4 mg PRN Q2HR PRN IV PAIN Last administered on 07/24/18at 10:40; Start 07/20/18 at 21:00 Haloperidol Lactate (Haldol Inj) 2 mg 1X ONCE IV Last administered on 07/20/18at 21:25; Start 07/20/18 at 22:00; Stop 07/20/18 at 22:01; Status DC Lorazepam (Ativan Inj) 0.25 mg PRN Q4HRS PRN IV ANXIETY / AGITATION Last administered on 07/23/18at 08:18; Start 07/20/18 at 21:30 Iodixanol (Visipaque 320) 100 ml STK-MED ONCE .ROUTE ; Start 07/21/18 at 12:29; Stop 07/21/18 at 12:30; Status DC Heparin Sodium/ Sodium Chloride 500 ml @ As Directed STK-MED ONCE .ROUTE ; Start 07/21/18 at 12:29; Stop 07/21/18 at 12:30; Status DC Lidocaine/Sodium Bicarbonate (Buffered Lidocaine 1%) 3 ml STK-MED ONCE .ROUTE ; Start 07/21/18 at 12:34; Stop 07/21/18 at 12:35; Status DC Lidocaine/Sodium Bicarbonate (Buffered Lidocaine 1%) 3 ml STK-MED ONCE .ROUTE ; Start 07/21/18 at 12:36; Stop 07/21/18 at 12:37; Status DC Midazolam HCl (Versed) 2 mg STK-MED ONCE .ROUTE ; Start 07/21/18 at 12:36; Stop 07/21/18 at 12:37; Status DC Fentanyl Citrate (Fentanyl 2ml Vial) 100 mcg STK-MED ONCE .ROUTE ; Start 07/21/18 at 12:36; Stop 07/21/18 at 12:37; Status DC Heparin Sodium (Porcine) (Heparin Sodium) 10,000 unit STK-MED ONCE .ROUTE ; Start 07/21/18 at 13:28; Stop 07/21/18 at 13:29; Status DC Midazolam HCl (Versed) 2 mg 1X ONCE IV Last administered on 07/21/18at 15:53; Start 07/21/18 at 13:45; Stop 07/21/18 at 13:46; Status DC Fentanyl Citrate (Fentanyl 2ml Vial) 100 mcg 1X ONCE IV Last administered on 07/21/18at 15:53; Start 07/21/18 at 13:45; Stop 07/21/18 at 13:46; Status DC Iodixanol (Visipaque 320) 100 ml 1X ONCE IART Last administered on 07/21/18at 15:52; Start 07/21/18 at 13:45; Stop 07/21/18 at 13:46; Status DC Heparin Sodium (Porcine) (Heparin Sodium) 5,000 unit 1X ONCE IV Last administered on 07/21/18at 15:58; Start 07/21/18 at 13:30; Stop 07/21/18 at 13:40; Status DC Heparin Sodium/ Sodium Chloride 500 ml @ As Directed STK-MED ONCE .ROUTE ; Start 07/21/18 at 14:40; Stop 07/21/18 at 14:41; Status DC Heparin Sodium/ Sodium Chloride (HEPARIN for ARTERIAL LINE FLUSH) 1,000 unit 1X ONCE IART Last administered on 07/21/18at 15:49; Start 07/21/18 at 14:45; Stop 07/21/18 at 14:47; Status DC Heparin Sodium/ Sodium Chloride (HEPARIN for ARTERIAL LINE FLUSH) 1,000 unit 1X ONCE IART Last administered on 07/21/18at 15:49; Start 07/21/18 at 14:45; Stop 07/21/18 at 14:47; Status DC Lidocaine/Sodium Bicarbonate (Buffered Lidocaine 1%) 3 ml 1X ONCE IJ Last administered on 07/21/18at 15:51; Start 07/21/18 at 14:45; Stop 07/21/18 at 14:47; Status DC Iodixanol (Visipaque 320) 100 ml STK-MED ONCE .ROUTE ; Start 07/21/18 at 14:46; Stop 07/21/18 at 14:47; Status DC Midazolam HCl (Versed) 2 mg STK-MED ONCE .ROUTE ; Start 07/21/18 at 14:52; Stop 07/21/18 at 14:53; Status DC Fentanyl Citrate (Fentanyl 2ml Vial) 100 mcg STK-MED ONCE .ROUTE ; Start 07/21/18 at 14:52; Stop 07/21/18 at 14:53; Status DC Alteplase, Recombinant 10 mg/ Sodium Chloride 100 ml @ 10 mls/hr 1X ONCE IV Last administered on 07/21/18at 15:50; Start 07/21/18 at 15:00; Stop 07/22/18 at 00:59; Status DC Heparin Sodium/ Sodium Chloride 500 ml @ As Directed STK-MED ONCE .ROUTE ; Start 07/21/18 at 14:56; Stop 07/21/18 at 14:57; Status DC Nitroglycerin (Nitroglycerin) 200 mcg 1X ONCE IART Last administered on 07/21/18at 15:55; Start 07/21/18 at 15:15; Stop 07/21/18 at 15:16; Status DC Vancomycin HCl 250 ml @ As Directed STK-MED ONCE .ROUTE ; Start 07/21/18 at 15:08; Stop 07/21/18 at 15:09; Status DC Vancomycin HCl 250 ml @ 250 mls/hr 1X ONCE IV Last administered on 07/21/18at 15:57; Start 07/21/18 at 15:15; Stop 07/21/18 at 16:14; Status DC Heparin Sodium (Porcine) (Heparin Sodium) 6,700 unit 1X ONCE IV Last administered on 07/21/18at 18:14; Start 07/21/18 at 16:45; Stop 07/21/18 at 16:50; Status DC Heparin Sodium/ Dextrose 500 ml @ 0 mls/hr CONT PRN IV SEE I/O RECORD Last administered on 07/22/18at 04:20; Start 07/21/18 at 16:45; Stop 07/23/18 at 11:10; Status DC Heparin Sodium (Porcine) (Heparin Sodium) 2,500 unit PRN Q6HRS PRN IV FOR UFH LEVEL LESS THAN 0.2; Start 07/21/18 at 16:45; Stop 07/23/18 at 11:14; Status DC Heparin Sodium (Porcine) (Heparin Sodium) 1,250 unit PRN Q6HRS PRN IV FOR UFH LEVEL 0.2 - 0.29 Last administered on 07/23/18 06:19; Start 07/21/18 at 16:45; Stop 07/23/18 at 11:14; Status DC Info (Anti-Coagulation Monitoring By Pharmacy) 1 each PRN DAILY PRN MC SEE COMMENTS Last administered on 07/22/18at 16:16; Start 07/21/18 at 17:00 Gabapentin (Neurontin) 100 mg TID PO Last administered on 07/24/18 08:31; Start 07/23/18 at 09:00 Non-Formulary Medication (Donepezil Hcl (Aricept)) 23 mg HS PO ; Start 07/23/18 at 21:00; Status UNV Levothyroxine Sodium (Synthroid) 50 mcg DAILY06 PO Last administered on 07/24/18 06:45; Start 07/23/18 at 10:30 Memantine (Namenda) 10 mg DAILY PO Last administered on 07/24/18 08:31; Start 07/23/18 at 09:00 Donepezil HCl (Aricept) 10 mg QHS PO Last administered on 07/23/18 21:13; Start 07/23/18 at 21:00; Stop 07/24/18 at 11:38; Status DC Apixaban (Eliquis) 5 mg BID PO Last administered on 07/24/18 08:31; Start 07/23/18 at 21:00 Alteplase, Recombinant (Cathflo For Central Catheter Clearance) 1 mg 1X ONCE INT CAT Last administered on 07/24/18at 10:04; Start 07/24/18 at 09:00; Stop 07/24/18 at 09:01; Status DC Acetaminophen/ Hydrocodone Bitart (Lortab 5/325) 1 tab PRN Q6HRS PRN PO PAIN; Start 07/24/18 at 10:30 Aspirin (Ecotrin) 81 mg DAILYWBKFT PO ; Start 07/24/18 at 14:00 Active Scripts Active Reported Aricept (Donepezil Hcl) 10 Mg Tablet 23 Mg PO HS Gabapentin (Gabapentin) 100 Mg Capsule 100 Mg PO TID Namenda (Memantine Hcl) 10 Mg Tablet 10 Mg PO DAILY Levothyroxine Sodium 50 Mcg Tablet 1 Tab PO DAILY Vitals/I & O Vital Sign - Last 24 Hours 07/23/18 07/23/18 07/23/18 07/23/18 15:00 18:49 20:00 21:18 Temp 98.2 98.7 98.2 98.7 Pulse 88 95 Resp 18 18 22 B/P (MAP) 107/62 (77) 98/60 (73) Pulse Ox 95 93 93 O2 Delivery Room Air Room Air Room Air Room Air 07/23/18 07/23/18 07/24/18 07/24/18 21:50 22:37 03:52 05:22 Temp 98.3 98.4 98.3 98.4 Pulse 70 68 77 Resp 18 16 16 B/P (MAP) 113/79 (90) 92/52 (65) Pulse Ox 97 95 O2 Delivery Room Air Room Air 07/24/18 07/24/18 07/24/18 07/24/18 06:45 06:57 07:15 08:00 Temp 98.3 98.3 Pulse 79 Resp 20 16 B/P (MAP) 122/67 (85) Pulse Ox 95 98 98 O2 Delivery Room Air Room Air Room Air Room Air O2 Flow Rate 2.0 1.0 07/24/18 07/24/18 10:40 11:00 Temp 97.7 97.7 Pulse 73 Resp 16 B/P (MAP) 108/64 (79) Pulse Ox 98 94 O2 Delivery Room Air Room Air O2 Flow Rate 1.0 Intake and Output 07/23/18 07/23/18 07/24/18 15:00 23:00 07:00 Intake Total 600 ml 400 ml 900 ml Output Total 1100 ml 1100 ml Balance 600 ml -700 ml -200 ml SARATH DINERO Jul 24, 2018 14:51
[2018-07-24 15:00] VITALS: BP 99/56
--- NOTE | 2018-07-24 15:07 | NUR ---
SS following up with discharge planning. Pt accepted at [facility], ; fax [phone]. Physician notified.
[2018-07-24] MEDS ORDERED: APIX5TAB PO (15:10)
[2018-07-24] MEDS ORDERED: HYDR-2761 PO (15:10)
[2018-07-24] MEDS ORDERED: ASPI-612 PO (15:10)
--- NOTE | 2018-07-24 15:12 | SNU/HH DC ---
DISCHARGE ORDERS DISCHARGE INFORMATION: DISCHARGE DATE: Jul 26, 2018 FINAL DIAGNOSIS Problems Medical Problems: (1) Leg pain Status: Acute (2) PVD (peripheral vascular disease) Status: Acute CONDITION ON DISCHARGE: Stable CODE STATUS: Code Status: DNR/DNI LONG-TERM: SNF STAY <30 DAYS: Yes POST DISCHARGE ORDERS: ACTIVITY ORDERS: Resume previous activity WEIGHT BEARING STATUS: Partial weight bearing DIET AFTER DISCHARGE: Regular WOUND/INCISION CARE: Ice to area for comfort, Keep wound elevated, Change dressing OTHER WOUND INSTRUCTIONS: Non-adherent dressing to right foot q shift CHECKS AFTER DISCHARGE: CHECKS AFTER DISCHARGE: Check blood press - daily, Check your Temp as needed FOLLOW-UP: PHYSICIAN FOLLOW-UP: Vascular surgery -2 weeks TREATMENT/EQUIPMENT ORDERS: ADAPTIVE EQUIPMENT NEEDED: None Physical Therapy For: Evalulation/Treatment Occupational Therapy For: Evaluation/Treatment DISCHARGE MEDICATIONS: Home Meds Active Scripts Doxycycline Hyclate (DOXYCYCLINE HYCLATE) 100 Mg Tablet, 1 TAB PO BID for Cellulitis for 7 Days, #14 TAB Prov:QAMAR SHARMA MD 07/28/18 Cephalexin (KEFLEX) 500 Mg Capsule, 1 CAP PO BID for Cellulitis for 7 Days, #14 CAP Prov:QAMAR SHARMA MD 07/28/18 Hydrocodone Bit/Acetaminophen (HYDROCODONE-APAP 5-325 ) 1 Tab Tablet, 1 TAB PO PRN Q6HRS PRN for PAIN for 6 Days, #18 TAB Prov:QAMAR SHARMA MD 07/24/18 Aspirin (ASPIRIN EC) 81 Mg Tablet.dr, 81 MG PO DAILYWBKFT for Stent for 30 Days, #30 TAB.SR 11 Refills Prov:QAMAR SHARMA MD 07/24/18 Apixaban (ELIQUIS) 5 Mg Tablet, 5 MG PO BID for AFIB, RLE thrombosis for 30 Days, #60 TAB 5 Refills Prov:QAMAR SHARMA MD 07/24/18 Reported Medications Hydrocodone Bit/Acetaminophen (HYDROCODONE-APAP 5-325 ) 1 Tab Tablet, 1 TAB PO PRN Q6HRS PRN for PAIN, TAB 0 Refills 07/25/18 Gabapentin (GABAPENTIN ) 100 Mg Capsule, 100 MG PO TID for NEUROGENIC PAIN, CAP 07/19/18 Memantine Hcl (NAMENDA) 10 Mg Tablet, 10 MG PO DAILY, TAB 07/19/18 Levothyroxine Sodium (LEVOTHYROXINE SODIUM) 50 Mcg Tablet, 1 TAB PO DAILY, #30 TAB 5 Refills 07/19/18 Discontinued Reported Medications Donepezil Hcl (ARICEPT) 10 Mg Tablet, 23 MG PO HS, TAB 07/19/18 QAMAR SHARMA MD Jul 24, 2018 15:12
--- NOTE | 2018-07-24 15:31 | NUR ---
SS following up with discharge planning. Petra at [facility] stated they could accept pt today. Discharge orders received for long-term unit at [facility], ; fax [phone]. SS phoned and faxed discharge orders. SS received phone contacted from Petra at [facility] stating that her cargo trimmer is requesting that pt admit on 07/25/2018 due to needing a bed close to the nurses station. Petra reported that they would be able to transport pt at 1000am. SS notified pt, pt's family, pt's RN, and physician. Pt will discharge tomorrow, 07/25/2018, at 1000 and go to [facility].
[2018-07-24] MEDS: ASPIRIN ENTERIC COATED 81 MG TABLET.DR. PO SCH (15:35)
[2018-07-24] MEDS: ANTI-COAG MONITOR BY PHARMACY. MC PRN (16:09)
[2018-07-24 19:15] VITALS: BP 112/68
[2018-07-24] MEDS: HYDROcodone/APAP 5/325MG 1 TAB TABLET PO PRN (20:04)
[2018-07-24 22:45] VITALS: BP 119/77
[2018-07-25 03:05] VITALS: BP 120/83
[2018-07-25] MEDS: HYDROcodone/APAP 5/325MG 1 TAB TABLET PO PRN ×3 (03:15→22:31)
[2018-07-25] MEDS: MORPHINE SULFATE 4 MG/ML VIAL. IV PRN ×3 (03:15→23:36)
[2018-07-25] MEDS: IV NORMAL SALINE 1000ML BAG 1,000 ML IV SCH (05:08)
[2018-07-25] MEDS: LEVOTHYROXINE 50 MCG TABLET PO SCH (06:12)
[2018-07-25 07:00] VITALS: BP 100/63
--- NOTE | 2018-07-25 08:05 | PDOC3 ---
Discharge Summary Visit Information Date of Admission: Jul 19, 2018 Date of Discharge: Jul 28, 2018 Admitting Diagnosis: Right leg pain Final Diagnosis Problems Medical Problems: (1) Leg pain Status: Acute (2) PVD (peripheral vascular disease) Status: Acute Brief Hospital Course Allergies Allergies Coded Allergies Type Severity Reaction Last Updated Verified penicillin G Allergy Intermediate 07/19/18 Yes Vital Signs Vital Signs Date Time Temp Pulse Resp B/P (MAP) Pulse Ox O2 Delivery O2 Flow Rate FiO2 07/25/18 04:00 18 96 Room Air 07/25/18 03:05 97.7 68 120/83 (95) 97.7 07/24/18 10:40 1.0 Brief Hospital Course Mr. Chakraborty is an 88 year old M w/ PMHx dementia, hypothyroidism, h/o colon cancer s/p resection who was admitted with a several month history of discoloration of his right foot and a 3-4 week history of worsening pain in his right foot. He denies any specific injury to his foot. He presented to his primary care physician a couple of days prior to admit At that time, he had an arterial ultrasound that showed bilateral popliteal artery aneurysms. There was flow through both aneurysms as well as relatively preserved arterial flow through his tibial vessels. He then presented to the Emergency Room with worsening pain and discoloration. A CT angiogram confirmed the area of popliteal artery aneurysms as well as flow in his right tibial vessels. He denied any family history of aneurysms. Seen by cardiology for new onset Afib and vascular surgery for his right leg pain. 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 Disease from clots that may have arisen from the aneurysm in the popliteal space. He also experienced some urinary retention and toscano was placed during vascular procedures which was removed for voiding trial on 07/24/18. Remained in house for 48 hours after procedure due to expected blistering of foot. Placed on prophylactic antibiotics for 7 days. Will f/u with vascular surgery and have wound care at . Critical Limb ischemia; suspected embolic. Bilateral popliteal artery aneurysms, s/p MANAGER HOUSEKEEPING to AT/PT 07/20 and popliteal artery covered stent placement 07/21 by IR. Vascular following outpatient on f/u AFIB, newly diagnosed, rate controlled. Continue Eliquis for stroke prophylaxis. LV function normal on 2D echo. Hypothyroidism; on replacement therapy Cognitive decline - hold aricept, cont namenda H/O cancer Seen on cardiac unit, doing well, some confusion, but more alert today. C/o RLE pain that is still bothering him, but less with pain medications. Vasc surg following as well as cardiology Cont eliquis Stop aricept Pulled toscano, voiding trial Can SNF d/c later today Greater than 30 minutes spent on discharge Discharge Information Condition at Discharge: Improved Follow Up: Weeks (2) Disposition/Orders: D/C to Another Facility Scheduled Apixaban (Eliquis) 5 Mg Tablet, 5 MG PO BID for AFIB, RLE thrombosis for 30 Days, #60 Ref 5 Prescribed by: QAMAR SHARMA MD on 07/24/18 1510 Aspirin (Aspirin Ec) 81 Mg Tablet.dr, 81 MG PO DAILYWBKFT for Stent for 30 Days, #30 Ref 11 Prescribed by: QAMAR SHARMA MD on 07/24/18 1510 Cephalexin (Keflex) 500 Mg Capsule, 1 CAP PO BID for Cellulitis for 7 Days, #14 Prescribed by: QAMAR SHARMA MD on 07/28/18 1035 Doxycycline Hyclate (Doxycycline Hyclate) 100 Mg Tablet, 1 TAB PO BID for Cellulitis for 7 Days, #14 Prescribed by: QAMAR SHARMA MD on 07/28/18 1035 Gabapentin (Gabapentin ) 100 Mg Capsule, 100 MG PO TID for NEUROGENIC PAIN, (Reported) Entered as Reported by: BORA MADRIGAL on 07/19/18 115 Last Taken: Unknown Dose on 07/18/18 Last Action: Continued on 07/23/18812 by NAVEED SONG RN Levothyroxine Sodium (Levothyroxine Sodium) 50 Mcg Tablet, 1 TAB PO DAILY, #30 R ef 5 (Reported) Entered as Reported by: BORA MADRIGAL on 07/19/18 115 Last Taken: Unknown Dose on 07/18/18 Last Action: Converted on 07/23/18812 by NAVEED SONG RN Memantine Hcl (Namenda) 10 Mg Tablet, 10 MG PO DAILY, (Reported) Entered as Reported by: BORA MADRIGAL on 07/19/18 115 Last Taken: Unknown Dose on 07/18/18 Last Action: Converted on 07/23/18812 by NAVEED SONG RN Scheduled PRN Hydrocodone Bit/Acetaminophen (Hydrocodone-Apap 5-325 ) 1 Tab Tablet, 1 TAB PO PRN Q6HRS PRN for PAIN for 6 Days, #18 Prescribed by: QAMAR SHARMA MD on 07/24/18 1510 Hydrocodone Bit/Acetaminophen (Hydrocodone-Apap 5-325 ) 1 Tab Tablet, 1 TAB PO PRN Q6HRS PRN for PAIN, Ref 0 (Reported) Entered as Reported by: Mauricio Mckeon on 07/25/18 1548 Discontinued Medications Donepezil Hcl (Aricept) 10 Mg Tablet, 23 MG PO HS, (Reported) Entered as Reported by: BORA MADRIGAL on 07/19/18 1151 Last Taken: Unknown Dose on 07/18/18 Last Action: Converted on 07/23/18812 by LIVIER OLIVAS CHRISTOPHER S MD Jul 25, 2018 08:05
[2018-07-25] MEDS: GABAPENTIN 100 MG CAPSULE. PO SCH ×3 (08:59→22:30)
[2018-07-25] MEDS: APIXABAN 5 MG TABLET. PO SCH ×2 (08:59→22:30)
[2018-07-25] MEDS: MEMANTINE 10 MG TABLET. PO SCH (08:59)
[2018-07-25] MEDS: ASPIRIN ENTERIC COATED 81 MG TABLET.DR. PO SCH (09:00)
[2018-07-25 10:41] VITALS: BP 101/55
--- NOTE | 2018-07-25 11:00 | NUR ---
SS following up with discharge planning. [employer] contacted SS and notified SS that transportation would be coming to transport pt at 1130. Pt, pt's RN, and pt's daughter notified.
--- NOTE | 2018-07-25 11:50 | NUR ---
Re port given to [facility] nurse. Awaits EMS arrival. Family is at bedside.
--- NOTE | 2018-07-25 12:44 | NUR ---
SS following up with discharge planning. [facility] arrived but reported that they were unable to transport pt due to his height. They reported that pt would not be able to stretch his legs out in the van. Pt's daughter at this time requested ambulance transport. SS contacted [facility] ambulance and scheduled transportation to [facility] at 1500. Pt's RN notified.
[2018-07-25] MEDS ORDERED: HYDR-2761 PO (15:48)
--- NOTE | 2018-07-25 16:24 | NUR ---
While patient is awaiting to be discharged to [facility] per EMS, complaint of right plantar pain with blood blisters. Called Dr. Collins to notify.
--- NOTE | 2018-07-25 16:40 | NUR ---
Spoken with Dr. Herring of blood blister on right plantar area. Received order to proceed with discharge to [facility].
--- NOTE | 2018-07-25 18:15 | NUR ---
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 [facility] fire department called to cancel the arrangement for orange picking supervisor.
[2018-07-25 19:40] VITALS: BP 128/67
--- NOTE | 2018-07-25 20:00 | NUR ---
Patient transfer to [place] canceled at this time 2/2 patient having increased pain in right foot. Right foot has increase swelling with increase in purple/reddish in color. Right foot toes appear dusky in color. Patient can feel right toes on touch. Patient can wiggle toes on right foot. Can still Doppler right pedal and posterior tibial pulses. Family at bedside concerned on sending patient [facility]. Mauricio MAIER spoke to Dr Edwards and Dr Maloney and obtain orders to cancel D/C from hospital at this time and get stat arterial and venous doppler of right LE at this time. Placed orders and called US to request stat Dopplers. Explained to patient and family current orders. Patient and Family verbalized understanding.
--- NOTE | 2018-07-25 21:07 | RAD ---
Right lower extremity venous doppler ultrasound History: Right leg pain, recent stent Comparison: None Findings: Multiple grayscale, color, and duplex spectral analysis sonographic images were acquired of the right lower extremity veins to evaluate for the presence of DVT. There is normal phasicity. Normal compression, color-flow, and augmentation is demonstrated from the right common femoral to the popliteal veins. There is normal color flow of the proximal right greater saphenous vein. There is normal color flow of segments of the calf veins. Impression: 1. There is no evidence of deep venous thrombosis from the right common femoral to the popliteal veins. Electronically signed by: Didier Velasquez MD (07/25/2018 9:04 PM) [facility]
--- NOTE | 2018-07-25 21:13 | RAD ---
Right lower extremity arterial ultrasound History: Pain in the right lower extremity, stent for aneurysm on 07/20/2018, pain and discoloration Findings: Multiple grayscale, color, and duplex spectral analysis sonographic images were acquired of the right lower extremity arteries. There is a stent in region of the popliteal artery, aneurysm sac/hematoma in this region about 4.6 x 3.9 cm. There is demonstrable waveform in the stent. There are monophasic waveforms of the runoff vessels and also of the visualized profunda femoris artery. Remainder of the right lower extremity arteries demonstrate triphasic waveforms. There is scattered plaque. Velocities in cm/sec: Common femoral artery 60 Profunda femoris artery 64 Proximal SFA 61 Mid SFA 72 Distal SFA 78 Popliteal artery 41 Posterior tibial artery 113 proximally and 72 distally Peroneal artery 75 Anterior tibial artery 63 Dorsalis pedis artery 37 Impression: 1. There is stent in the region of the popliteal artery at which there is aneurysm/hematoma. There is demonstrable flow of the runoff vessels although abnormal monophasic waveforms. No vessel occlusion is demonstrated. Electronically signed by: Didier Velasquez MD (07/25/2018 9:10 PM) [facility]
[2018-07-25 23:01] VITALS: BP 112/64
[2018-07-26 02:55] VITALS: BP 105/67
[2018-07-26] MEDS: HYDROcodone/APAP 5/325MG 1 TAB TABLET PO PRN (04:36)
[2018-07-26] MEDS: LEVOTHYROXINE 50 MCG TABLET PO SCH (04:36)
[2018-07-26] MEDS: MORPHINE SULFATE 4 MG/ML VIAL. IV PRN (04:37)
[2018-07-26 07:00] VITALS: BP 103/61
--- NOTE | 2018-07-26 08:02 | PDOC ---
PROGRESS NOTES Chief Complaint Chief Complaint arterial occlusion, embolic. s/p thrombectomy and TPA, Right Popliteal artery aneurysm. 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 Hypothyroidism PVD cognitive decline H/O prostate cancer History of Present Illness History of Present Illness Mr. Chakraborty is an 88 year old M w/ PMHx dementia, hypothyroidism, h/o colon cancer s/p resection who was admitted with a several month history of discoloration of his right foot and a 3-4 week history of worsening pain in his right foot. He denies any specific injury to his foot. He presented to his primary care physician a couple of days prior to admit At that time, he had an arterial ultrasound that showed bilateral popliteal artery aneurysms. There was flow through both aneurysms as well as relatively preserved arterial flow through his tibial vessels. He then presented to the Emergency Room with worsening pain and discoloration. A CT angiogram confirmed the area of popliteal artery aneurysms as well as flow in his right tibial vessels. He denied any family history of aneurysms. Seen by cardiology for new onset Afib and vascular surgery for his right leg pain. 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 Disease from clots that may have arisen from the aneurysm in the popliteal space. He also experienced some urinary retention and toscano was placed during vascular procedures which was removed for voiding trial on 07/24/18. Last evening c/o worse right foot pain and some blistering. D/w vascular surgery to have stat venous and arterial dopplers which show no new change in flow. D/w patient and [id number] bedside that ultimately he will likely need a TMA. He is unclear if he wants to wait. Vasc surg following Cont eliquis Stop aricept Can try for SNF d/c in the next 48 hours per vascular surgery Vitals Vitals Vital Signs Date Time Temp Pulse Resp B/P (MAP) Pulse Ox O2 Delivery O2 Flow Rate FiO2 07/26/18 07:00 97.5 72 18 103/61 (75) 96 Room Air 97.5 07/25/18 15:55 1.0 Physical Exam General: Alert, Cooperative, No acute distress Heart: Regular rate Lungs: Clear, Wheezing Abdomen: Soft, No tenderness Extremities: Other (Left popliteal pulse prominent, left DP palpable. Right foot cannot appreciate pulses, however great doppler signals. Right 2-4 toes are still slightly more pale than rest of foot with minimal purple discoloration. Cap refill about 4 sec. Hyperemia to midfoot and proximal to ankle. ) Skin: No breakdown, No significant lesion Assessment and Plan Assessmemt and Plan Problems Medical Problems: (1) Leg pain Status: Acute (2) PVD (peripheral vascular disease) Status: Acute Comment Review of Relevant I have reviewed the following items mendoza (where applicable) has been applied. Medications Current Medications Morphine Sulfate (Morphine Sulfate) 2 mg 1X ONCE IV Last administered on 07/19/18 11:19; Start 07/19/18 at 11:00; Stop 07/19/18 at 11:07; Status DC Sodium Chloride 1,000 ml @ 100 mls/hr Q10H IV Last administered on 07/19/18 11:17; Start 07/19/18 at 10:50; Stop 07/19/18 at 20:49; Status DC Iohexol (Omnipaque 350 Mg/ml) 95 ml 1X ONCE IV Last administered on 07/19/18at 11:45; Start 07/19/18 at 11:45; Stop 07/19/18 at 11:46; Status DC Morphine Sulfate (Morphine Sulfate) 4 mg 1X ONCE IV Last administered on 07/19/18at 11:54; Start 07/19/18 at 12:00; Stop 07/19/18 at 12:01; Status DC Hydromorphone HCl (Dilaudid) 1 mg 1X ONCE IV Last administered on 07/19/18 14:25; Start 07/19/18 at 14:30; Stop 07/19/18 at 14:31; Status DC Morphine Sulfate (Morphine Sulfate) 4 mg PRN Q2HR PRN IV PAIN Last administered on 07/20/18 11:14; Start 07/19/18 at 14:45; Stop 07/20/18 at 14:44; Status DC Heparin Sodium (Porcine) (Heparin Sodium) 6,900 unit 1X ONCE IV Last administered on 07/19/18at 21:21; Start 07/19/18 at 19:15; Stop 07/19/18 at 19:21; Status DC Heparin Sodium/ Dextrose 500 ml @ 0 mls/hr CONT PRN IV SEE I/O RECORD; Start 07/19/18 at 19:15; Stop 07/20/18 at 17:25; Status DC Heparin Sodium (Porcine) (Heparin Sodium) 2,150 unit PRN Q6HRS PRN IV FOR UFH LEVEL LESS THAN 0.2 Last administered on 07/20/18at 04:37; Start 07/19/18 at 19:15; Stop 07/21/18 at 16:42; Status DC Sodium Chloride 1,000 ml @ 50 mls/hr Q20H IV Last administered on 07/25/18at 05:08; Start 07/19/18 at 19:45 Lorazepam (Ativan Inj) 2 mg 1X ONCE IM/IV Last administered on 07/20/18at 03:30; Start 07/20/18 at 03:30; Stop 07/20/18 at 03:31; Status DC Haloperidol (Haldol) 5 mg PRN Q6HRS PRN PO AGITATION Last administered on 07/22/18at 16:34; Start 07/20/18 at 03:15; Stop 07/24/18 at 15:59; Status DC Iodixanol (Visipaque 320) 100 ml STK-MED ONCE .ROUTE ; Start 07/20/18 at 12:30; Stop 07/20/18 at 12:31; Status DC Lidocaine/Sodium Bicarbonate (Buffered Lidocaine 1%) 3 ml STK-MED ONCE .ROUTE ; Start 07/20/18 at 12:30; Stop 07/20/18 at 12:31; Status DC Heparin Sodium/ Sodium Chloride 500 ml @ As Directed STK-MED ONCE .ROUTE ; Start 07/20/18 at 12:30; Stop 07/20/18 at 12:31; Status DC Heparin Sodium/ Sodium Chloride 500 ml @ As Directed STK-MED ONCE .ROUTE ; Start 07/20/18 at 12:31; Stop 07/20/18 at 12:32; Status DC Info (Anti-Coagulation Monitoring By Pharmacy) 1 each PRN DAILY PRN MC SEE COMMENTS Last administered on 07/21/18at 14:55; Start 07/20/18 at 12:45; Stop 07/21/18 at 16:43; Status DC Midazolam HCl (Versed) 2 mg STK-MED ONCE .ROUTE ; Start 07/20/18 at 13:08; Stop 07/20/18 at 13:09; Status DC Fentanyl Citrate (Fentanyl 2ml Vial) 100 mcg STK-MED ONCE .ROUTE ; Start 07/20/18 at 13:09; Stop 07/20/18 at 13:10; Status DC Heparin Sodium (Porcine) (Heparin Sodium) 10,000 unit STK-MED ONCE .ROUTE ; Start 07/20/18 at 13:09; Stop 07/20/18 at 13:10; Status DC Heparin Sodium/ Sodium Chloride (HEPARIN for ARTERIAL LINE FLUSH) 1,000 unit 1X ONCE IART Last administered on 07/20/18at 13:15; Start 07/20/18 at 13:15; Stop 07/20/18 at 13:20; Status DC Heparin Sodium/ Sodium Chloride (HEPARIN for ARTERIAL LINE FLUSH) 1,000 unit 1X ONCE IART Last administered on 07/20/18at 13:15; Start 07/20/18 at 13:15; Stop 07/20/18 at 13:20; Status DC Lidocaine/Sodium Bicarbonate (Buffered Lidocaine 1%) 3 ml 1X ONCE IJ Last administered on 07/20/18at 13:15; Start 07/20/18 at 13:15; Stop 07/20/18 at 13:20; Status DC Midazolam HCl (Versed) 2 mg 1X ONCE IV Last administered on 07/20/18at 13:15; Start 07/20/18 at 13:15; Stop 07/20/18 at 13:20; Status DC Fentanyl Citrate (Fentanyl 2ml Vial) 100 mcg 1X ONCE IV Last administered on 07/20/18at 13:15; Start 07/20/18 at 13:15; Stop 07/20/18 at 13:20; Status DC Iodixanol (Visipaque 320) 100 ml 1X ONCE IART Last administered on 07/20/18at 13:15; Start 07/20/18 at 13:15; Stop 07/20/18 at 13:20; Status DC Heparin Sodium (Porcine) (Heparin Sodium) 5,000 unit 1X ONCE IV Last administered on 07/20/18at 14:30; Start 07/20/18 at 14:30; Stop 07/20/18 at 14:32; Status DC Lidocaine/Sodium Bicarbonate (Buffered Lidocaine 1%) 3 ml STK-MED ONCE .ROUTE ; Start 07/20/18 at 15:54; Stop 07/20/18 at 15:55; Status DC Heparin Sodium/ Sodium Chloride 500 ml @ As Directed STK-MED ONCE .ROUTE ; Start 07/20/18 at 16:27; Stop 07/20/18 at 16:28; Status DC Alteplase, Recombinant 25 mg/ Sodium Chloride 250 ml @ 10 mls/hr Q25H IV ; Start 07/20/18 at 16:30; Status Cancel Alteplase, Recombinant 25 mg/ Sodium Chloride 250 ml @ 10 mls/hr 1X ONCE IV Last administered on 07/20/18at 18:16; Start 07/20/18 at 17:30; Stop 07/21/18 at 18:29; Status DC Heparin Sodium/ Dextrose 500 ml @ 0 mls/hr CONT PRN IV SEE I/O RECORD Last administered on 07/20/18at 18:15; Start 07/20/18 at 17:30; Stop 07/21/18 at 16:42; Status DC Morphine Sulfate (Morphine Sulfate) 4 mg PRN Q2HR PRN IV PAIN Last administered on 07/26/18at 04:37; Start 07/20/18 at 21:00 Haloperidol Lactate (Haldol Inj) 2 mg 1X ONCE IV Last administered on 07/20/18at 21:25; Start 07/20/18 at 22:00; Stop 07/20/18 at 22:01; Status DC Lorazepam (Ativan Inj) 0.25 mg PRN Q4HRS PRN IV ANXIETY / AGITATION Last administered on 07/23/18at 08:18; Start 07/20/18 at 21:30; Stop 07/24/18 at 15:59; Status DC Iodixanol (Visipaque 320) 100 ml STK-MED ONCE .ROUTE ; Start 07/21/18 at 12:29; Stop 07/21/18 at 12:30; Status DC Heparin Sodium/ Sodium Chloride 500 ml @ As Directed STK-MED ONCE .ROUTE ; Start 07/21/18 at 12:29; Stop 07/21/18 at 12:30; Status DC Lidocaine/Sodium Bicarbonate (Buffered Lidocaine 1%) 3 ml STK-MED ONCE .ROUTE ; Start 07/21/18 at 12:34; Stop 07/21/18 at 12:35; Status DC Lidocaine/Sodium Bicarbonate (Buffered Lidocaine 1%) 3 ml STK-MED ONCE .ROUTE ; Start 07/21/18 at 12:36; Stop 07/21/18 at 12:37; Status DC Midazolam HCl (Versed) 2 mg STK-MED ONCE .ROUTE ; Start 07/21/18 at 12:36; Stop 07/21/18 at 12:37; Status DC Fentanyl Citrate (Fentanyl 2ml Vial) 100 mcg STK-MED ONCE .ROUTE ; Start 07/21/18 at 12:36; Stop 07/21/18 at 12:37; Status DC Heparin Sodium (Porcine) (Heparin Sodium) 10,000 unit STK-MED ONCE .ROUTE ; Start 07/21/18 at 13:28; Stop 07/21/18 at 13:29; Status DC Midazolam HCl (Versed) 2 mg 1X ONCE IV Last administered on 07/21/18at 15:53; Start 07/21/18 at 13:45; Stop 07/21/18 at 13:46; Status DC Fentanyl Citrate (Fentanyl 2ml Vial) 100 mcg 1X ONCE IV Last administered on 07/21/18at 15:53; Start 07/21/18 at 13:45; Stop 07/21/18 at 13:46; Status DC Iodixanol (Visipaque 320) 100 ml 1X ONCE IART Last administered on 07/21/18at 15:52; Start 07/21/18 at 13:45; Stop 07/21/18 at 13:46; Status DC Heparin Sodium (Porcine) (Heparin Sodium) 5,000 unit 1X ONCE IV Last administered on 07/21/18at 15:58; Start 07/21/18 at 13:30; Stop 07/21/18 at 13:40; Status DC Heparin Sodium/ Sodium Chloride 500 ml @ As Directed STK-MED ONCE .ROUTE ; Start 07/21/18 at 14:40; Stop 07/21/18 at 14:41; Status DC Heparin Sodium/ Sodium Chloride (HEPARIN for ARTERIAL LINE FLUSH) 1,000 unit 1X ONCE IART Last administered on 07/21/18at 15:49; Start 07/21/18 at 14:45; Stop 07/21/18 at 14:47; Status DC Heparin Sodium/ Sodium Chloride (HEPARIN for ARTERIAL LINE FLUSH) 1,000 unit 1X ONCE IART Last administered on 07/21/18at 15:49; Start 07/21/18 at 14:45; Stop 07/21/18 at 14:47; Status DC Lidocaine/Sodium Bicarbonate (Buffered Lidocaine 1%) 3 ml 1X ONCE IJ Last a dministered on 07/21/18at 15:51; Start 07/21/18 at 14:45; Stop 07/21/18 at 14:47; Status DC Iodixanol (Visipaque 320) 100 ml STK-MED ONCE .ROUTE ; Start 07/21/18 at 14:46; Stop 07/21/18 at 14:47; Status DC Midazolam HCl (Versed) 2 mg STK-MED ONCE .ROUTE ; Start 07/21/18 at 14:52; Stop 07/21/18 at 14:53; Status DC Fentanyl Citrate (Fentanyl 2ml Vial) 100 mcg STK-MED ONCE .ROUTE ; Start 07/21/18 at 14:52; Stop 07/21/18 at 14:53; Status DC Alteplase, Recombinant 10 mg/ Sodium Chloride 100 ml @ 10 mls/hr 1X ONCE IV Last administered on 07/21/18at 15:50; Start 07/21/18 at 15:00; Stop 07/22/18 at 00:59; Status DC Heparin Sodium/ Sodium Chloride 500 ml @ As Directed STK-MED ONCE .ROUTE ; Start 07/21/18 at 14:56; Stop 07/21/18 at 14:57; Status DC Nitroglycerin (Nitroglycerin) 200 mcg 1X ONCE IART Last administered on 07/21/18at 15:55; Start 07/21/18 at 15:15; Stop 07/21/18 at 15:16; Status DC Vancomycin HCl 250 ml @ As Directed STK-MED ONCE .ROUTE ; Start 07/21/18 at 15:08; Stop 07/21/18 at 15:09; Status DC Vancomycin HCl 250 ml @ 250 mls/hr 1X ONCE IV Last administered on 07/21/18at 15:57; Start 07/21/18 at 15:15; Stop 07/21/18 at 16:14; Status DC Heparin Sodium (Porcine) (Heparin Sodium) 6,700 unit 1X ONCE IV Last administered on 07/21/18at 18:14; Start 07/21/18 at 16:45; Stop 07/21/18 at 16:50; Status DC Heparin Sodium/ Dextrose 500 ml @ 0 mls/hr CONT PRN IV SEE I/O RECORD Last administered on 07/22/18 04:20; Start 07/21/18 at 16:45; Stop 07/23/18 at 11:10; Status DC Heparin Sodium (Porcine) (Heparin Sodium) 2,500 unit PRN Q6HRS PRN IV FOR UFH LEVEL LESS THAN 0.2; Start 07/21/18 at 16:45; Stop 07/23/18 at 11:14; Status DC Heparin Sodium (Porcine) (Heparin Sodium) 1,250 unit PRN Q6HRS PRN IV FOR UFH LEVEL 0.2 - 0.29 Last administered on 07/23/18 06:19; Start 07/21/18 at 16:45; Stop 07/23/18 at 11:14; Status DC Info (Anti-Coagulation Monitoring By Pharmacy) 1 each PRN DAILY PRN MC SEE COMMENTS Last administered on 07/24/18 16:09; Start 07/21/18 at 17:00 Gabapentin (Neurontin) 100 mg TID PO Last administered on 07/25/18 22:30; Start 07/23/18 at 09:00 Non-Formulary Medication (Donepezil Hcl (Aricept)) 23 mg HS PO ; Start 07/23/18 at 21:00; Status UNV Levothyroxine Sodium (Synthroid) 50 mcg DAILY06 PO Last administered on 07/26/18 04:36; Start 07/23/18 at 10:30 Memantine (Namenda) 10 mg DAILY PO Last administered on 07/25/18at 08:59; Start 07/23/18 at 09:00 Donepezil HCl (Aricept) 10 mg QHS PO Last administered on 07/23/18at 21:13; Start 07/23/18 at 21:00; Stop 07/24/18 at 11:38; Status DC Apixaban (Eliquis) 5 mg BID PO Last administered on 07/25/18 22:30; Start 07/23/18 at 21:00 Alteplase, Recombinant (Cathflo For Central Catheter Clearance) 1 mg 1X ONCE INT CAT Last administered on 07/24/18at 10:04; Start 07/24/18 at 09:00; Stop 07/24/18 at 09:01; Status DC Acetaminophen/ Hydrocodone Bitart (Lortab 5/325) 1 tab PRN Q6HRS PRN PO PAIN Last administered on 07/26/18at 04:36; Start 07/24/18 at 10:30 Aspirin (Ecotrin) 81 mg DAILYWBKFT PO Last administered on 07/25/18at 09:00; Start 07/24/18 at 14:00 Active Scripts Active Hydrocodone-Apap 5-325 (Hydrocodone Bit/Acetaminophen) 1 Tab Tablet 1 Tab PO PRN Q6HRS PRN 6 Days Aspirin Ec (Aspirin) 81 Mg Tablet.dr 81 Mg PO DAILYWBKFT 30 Days Eliquis (Apixaban) 5 Mg Tablet 5 Mg PO BID 30 Days Reported Hydrocodone-Apap 5-325 (Hydrocodone Bit/Acetaminophen) 1 Tab Tablet 1 Tab PO PRN Q6HRS PRN Gabapentin (Gabapentin) 100 Mg Capsule 100 Mg PO TID Namenda (Memantine Hcl) 10 Mg Tablet 10 Mg PO DAILY Levothyroxine Sodium 50 Mcg Tablet 1 Tab PO DAILY Vitals/I & O Vital Sign - Last 24 Hours 07/25/18 07/25/18 07/25/18 07/25/18 10:41 15:55 19:40 20:00 Temp 97.4 98.5 97.4 98.5 Pulse 90 Resp 14 18 18 B/P (MAP) 101/55 (70) 128/67 (87) Pulse Ox 93 93 94 O2 Delivery Room Air Room Air Room Air Room Air O2 Flow Rate 1.0 07/25/18 07/25/18 07/25/18 07/25/18 20:33 22:31 23:01 23:36 Temp 98.2 98.2 Pulse 80 Resp 18 18 18 18 B/P (MAP) 112/64 (80) Pulse Ox 95 95 94 94 O2 Delivery Room Air Room Air Room Air Room Air 07/26/18 07/26/18 07/26/18 07/26/18 02:55 04:36 04:37 05:07 Temp 97.9 97.9 Pulse 62 Resp 20 18 18 18 B/P (MAP) 105/67 (80) Pulse Ox 93 93 93 93 O2 Delivery Room Air Room Air Room Air Room Air 07/26/18 07/26/18 05:36 07:00 Temp 97.5 97.5 Pulse 72 Resp 18 18 B/P (MAP) 103/61 (75) Pulse Ox 93 96 O2 Delivery Room Air Room Air Intake and Output 07/25/18 07/25/18 07/26/18 15:00 23:00 07:00 Intake Total 600 ml 200 ml 0 ml Output Total 200 ml 150 ml 350 ml Balance 400 ml 50 ml -350 ml Nutrition Consultation Dietary Evaluation: Recommendations by RD: Increase Calorie Intake Comments: REC continue w/cardiac diet, would consider liberalizing to regular if needed to promote PO intake of meals Consider oral supplements if PO intake of meals <50% Expected Outcomes/Goals: PO intake to meet >75% est needs Malnutrition Findings: Body Fat Depletion (Non Severe: Mild Depletion Weight Status: Appropriate QAMAR SHARMA MD Jul 26, 2018 08:02
--- NOTE | 2018-07-26 10:21 | PDOC ---
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 I would recommend watching this for a day or 2 to let it demarcate then plan surgery once the viable edges are obvious I discussed this at length with his family. Objective Objective Vital Signs Date Time Temp Pulse Resp B/P (MAP) Pulse Ox O2 Delivery O2 Flow Rate FiO2 07/26/18 08:00 Room Air 07/26/18 07:00 97.5 72 18 103/61 (75) 96 97.5 07/25/18 15:55 1.0 Intake and Output 07/26/18 06:59 Intake Total 800 ml Output Total 700 ml Balance 100 ml Intake Oral 800 ml Output Urine Total 700 ml # Voids 1 Assessment Assessment Problems Medical Problems: (1) Leg pain Status: Acute (2) PVD (peripheral vascular disease) Status: Acute Comment Review of Relevant I have reviewed the following items mendoza (where applicable) has been applied. Medications Current Medications Morphine Sulfate (Morphine Sulfate) 2 mg 1X ONCE IV Last administered on 07/19/18at 11:19; Start 07/19/18 at 11:00; Stop 07/19/18 at 11:07; Status DC Sodium Chloride 1,000 ml @ 100 mls/hr Q10H IV Last administered on 07/19/18at 11:17; Start 07/19/18 at 10:50; Stop 07/19/18 at 20:49; Status DC Iohexol (Omnipaque 350 Mg/ml) 95 ml 1X ONCE IV Last administered on 07/19/18at 11:45; Start 07/19/18 at 11:45; Stop 07/19/18 at 11:46; Status DC Morphine Sulfate (Morphine Sulfate) 4 mg 1X ONCE IV Last administered on 07/19/18at 11:54; Start 07/19/18 at 12:00; Stop 07/19/18 at 12:01; Status DC Hydromorphone HCl (Dilaudid) 1 mg 1X ONCE IV Last administered on 07/19/18at 14:25; Start 07/19/18 at 14:30; Stop 07/19/18 at 14:31; Status DC Morphine Sulfate (Morphine Sulfate) 4 mg PRN Q2HR PRN IV PAIN Last administered on 07/20/18at 11:14; Start 07/19/18 at 14:45; Stop 07/20/18 at 14:44; Status DC Heparin Sodium (Porcine) (Heparin Sodium) 6,900 unit 1X ONCE IV Last administered on 07/19/18at 21:21; Start 07/19/18 at 19:15; Stop 07/19/18 at 19:21; Status DC Heparin Sodium/ Dextrose 500 ml @ 0 mls/hr CONT PRN IV SEE I/O RECORD; Start 07/19/18 at 19:15; Stop 07/20/18 at 17:25; Status DC Heparin Sodium (Porcine) (Heparin Sodium) 2,150 unit PRN Q6HRS PRN IV FOR UFH LEVEL LESS THAN 0.2 Last administered on 07/20/18at 04:37; Start 07/19/18 at 19:15; Stop 07/21/18 at 16:42; Status DC Sodium Chloride 1,000 ml @ 50 mls/hr Q20H IV Last administered on 07/25/18at 05:08; Start 07/19/18 at 19:45 Lorazepam (Ativan Inj) 2 mg 1X ONCE IM/IV Last administered on 07/20/18at 03:30; Start 07/20/18 at 03:30; Stop 07/20/18 at 03:31; Status DC Haloperidol (Haldol) 5 mg PRN Q6HRS PRN PO AGITATION Last administered on 07/22/18at 16:34; Start 07/20/18 at 03:15; Stop 07/24/18 at 15:59; Status DC Iodixanol (Visipaque 320) 100 ml STK-MED ONCE .ROUTE ; Start 07/20/18 at 12:30; Stop 07/20/18 at 12:31; Status DC Lidocaine/Sodium Bicarbonate (Buffered Lidocaine 1%) 3 ml STK-MED ONCE .ROUTE ; Start 07/20/18 at 12:30; Stop 07/20/18 at 12:31; Status DC Heparin Sodium/ Sodium Chloride 500 ml @ As Directed STK-MED ONCE .ROUTE ; Start 07/20/18 at 12:30; Stop 07/20/18 at 12:31; Status DC Heparin Sodium/ Sodium Chloride 500 ml @ As Directed STK-MED ONCE .ROUTE ; Start 07/20/18 at 12:31; Stop 07/20/18 at 12:32; Status DC Info (Anti-Coagulation Monitoring By Pharmacy) 1 each PRN DAILY PRN MC SEE COMMENTS Last administered on 07/21/18at 14:55; Start 07/20/18 at 12:45; Stop 07/21/18 at 16:43; Status DC Midazolam HCl (Versed) 2 mg STK-MED ONCE .ROUTE ; Start 07/20/18 at 13:08; Stop 07/20/18 at 13:09; Status DC Fentanyl Citrate (Fentanyl 2ml Vial) 100 mcg STK-MED ONCE .ROUTE ; Start 07/20/18 at 13:09; Stop 07/20/18 at 13:10; Status DC Heparin Sodium (Porcine) (Heparin Sodium) 10,000 unit STK-MED ONCE .ROUTE ; Start 07/20/18 at 13:09; Stop 07/20/18 at 13:10; Status DC Heparin Sodium/ Sodium Chloride (HEPARIN for ARTERIAL LINE FLUSH) 1,000 unit 1X ONCE IART Last administered on 07/20/18at 13:15; Start 07/20/18 at 13:15; Stop 07/20/18 at 13:20; Status DC Heparin Sodium/ Sodium Chloride (HEPARIN for ARTERIAL LINE FLUSH) 1,000 unit 1X ONCE IART Last administered on 07/20/18at 13:15; Start 07/20/18 at 13:15; Stop 07/20/18 at 13:20; Status DC Lidocaine/Sodium Bicarbonate (Buffered Lidocaine 1%) 3 ml 1X ONCE IJ Last administered on 07/20/18at 13:15; Start 07/20/18 at 13:15; Stop 07/20/18 at 13:20; Status DC Midazolam HCl (Versed) 2 mg 1X ONCE IV Last administered on 07/20/18at 13:15; Start 07/20/18 at 13:15; Stop 07/20/18 at 13:20; Status DC Fentanyl Citrate (Fentanyl 2ml Vial) 100 mcg 1X ONCE IV Last administered on 07/20/18at 13:15; Start 07/20/18 at 13:15; Stop 07/20/18 at 13:20; Status DC Iodixanol (Visipaque 320) 100 ml 1X ONCE IART Last administered on 07/20/18at 13:15; Start 07/20/18 at 13:15; Stop 07/20/18 at 13:20; Status DC Heparin Sodium (Porcine) (Heparin Sodium) 5,000 unit 1X ONCE IV Last administered on 07/20/18at 14:30; Start 07/20/18 at 14:30; Stop 07/20/18 at 14:32; Status DC Lidocaine/Sodium Bicarbonate (Buffered Lidocaine 1%) 3 ml STK-MED ONCE .ROUTE ; Start 07/20/18 at 15:54; Stop 07/20/18 at 15:55; Status DC Heparin Sodium/ Sodium Chloride 500 ml @ As Directed STK-MED ONCE .ROUTE ; Start 07/20/18 at 16:27; Stop 07/20/18 at 16:28; Status DC Alteplase, Recombinant 25 mg/ Sodium Chloride 250 ml @ 10 mls/hr Q25H IV ; Start 07/20/18 at 16:30; Status Cancel Alteplase, Recombinant 25 mg/ Sodium Chloride 250 ml @ 10 mls/hr 1X ONCE IV Last administered on 07/20/18at 18:16; Start 07/20/18 at 17:30; Stop 07/21/18 at 18:29; Status DC Heparin Sodium/ Dextrose 500 ml @ 0 mls/hr CONT PRN IV SEE I/O RECORD Last administered on 07/20/18at 18:15; Start 07/20/18 at 17:30; Stop 07/21/18 at 16:42; Status DC Morphine Sulfate (Morphine Sulfate) 4 mg PRN Q2HR PRN IV PAIN Last administered on 07/26/18at 04:37; Start 07/20/18 at 21:00 Haloperidol Lactate (Haldol Inj) 2 mg 1X ONCE IV Last administered on 07/20/18at 21:25; Start 07/20/18 at 22:00; Stop 07/20/18 at 22:01; Status DC Lorazepam (Ativan Inj) 0.25 mg PRN Q4HRS PRN IV ANXIETY / AGITATION Last administered on 07/23/18at 08:18; Start 07/20/18 at 21:30; Stop 07/24/18 at 15:59; Status DC Iodixanol (Visipaque 320) 100 ml STK-MED ONCE .ROUTE ; Start 07/21/18 at 12:29; Stop 07/21/18 at 12:30; Status DC Heparin Sodium/ Sodium Chloride 500 ml @ As Directed STK-MED ONCE .ROUTE ; Start 07/21/18 at 12:29; Stop 07/21/18 at 12:30; Status DC Lidocaine/Sodium Bicarbonate (Buffered Lidocaine 1%) 3 ml STK-MED ONCE .ROUTE ; Start 07/21/18 at 12:34; Stop 07/21/18 at 12:35; Status DC Lidocaine/Sodium Bicarbonate (Buffered Lidocaine 1%) 3 ml STK-MED ONCE .ROUTE ; Start 07/21/18 at 12:36; Stop 07/21/18 at 12:37; Status DC Midazolam HCl (Versed) 2 mg STK-MED ONCE .ROUTE ; Start 07/21/18 at 12:36; Stop 07/21/18 at 12:37; Status DC Fentanyl Citrate (Fentanyl 2ml Vial) 100 mcg STK-MED ONCE .ROUTE ; Start 07/21/18 at 12:36; Stop 07/21/18 at 12:37; Status DC Heparin Sodium (Porcine) (Heparin Sodium) 10,000 unit STK-MED ONCE .ROUTE ; Start 07/21/18 at 13:28; Stop 07/21/18 at 13:29; Status DC Midazolam HCl (Versed) 2 mg 1X ONCE IV Last administered on 07/21/18at 15:53; Start 07/21/18 at 13:45; Stop 07/21/18 at 13:46; Status DC Fentanyl Citrate (Fentanyl 2ml Vial) 100 mcg 1X ONCE IV Last administered on 07/21/18at 15:53; Start 07/21/18 at 13:45; Stop 07/21/18 at 13:46; Status DC Iodixanol (Visipaque 320) 100 ml 1X ONCE IART Last administered on 07/21/18at 15:52; Start 07/21/18 at 13:45; Stop 07/21/18 at 13:46; Status DC Heparin Sodium (Porcine) (Heparin Sodium) 5,000 unit 1X ONCE IV Last administered on 07/21/18at 15:58; Start 07/21/18 at 13:30; Stop 07/21/18 at 13:40; Status DC Heparin Sodium/ Sodium Chloride 500 ml @ As Directed STK-MED ONCE .ROUTE ; Start 07/21/18 at 14:40; Stop 07/21/18 at 14:41; Status DC Heparin Sodium/ Sodium Chloride (HEPARIN for ARTERIAL LINE FLUSH) 1,000 unit 1X ONCE IART Last administered on 07/21/18at 15:49; Start 07/21/18 at 14:45; Stop 07/21/18 at 14:47; Status DC Heparin Sodium/ Sodium Chloride (HEPARIN for ARTERIAL LINE FLUSH) 1,000 unit 1X ONCE IART Last administered on 07/21/18at 15:49; Start 07/21/18 at 14:45; Stop 07/21/18 at 14:47; Status DC Lidocaine/Sodium Bicarbonate (Buffered Lidocaine 1%) 3 ml 1X ONCE IJ Last administered on 07/21/18at 15:51; Start 07/21/18 at 14:45; Stop 07/21/18 at 14:47; Status DC Iodixanol (Visipaque 320) 100 ml STK-MED ONCE .ROUTE ; Start 07/21/18 at 14:46; Stop 07/21/18 at 14:47; Status DC Midazolam HCl (Versed) 2 mg STK-MED ONCE .ROUTE ; Start 07/21/18 at 14:52; Stop 07/21/18 at 14:53; Status DC Fentanyl Citrate (Fentanyl 2ml Vial) 100 mcg STK-MED ONCE .ROUTE ; Start 07/21/18 at 14:52; Stop 07/21/18 at 14:53; Status DC Alteplase, Recombinant 10 mg/ Sodium Chloride 100 ml @ 10 mls/hr 1X ONCE IV Last administered on 07/21/18at 15:50; Start 07/21/18 at 15:00; Stop 07/22/18 at 00: 59; Status DC Heparin Sodium/ Sodium Chloride 500 ml @ As Directed STK-MED ONCE .ROUTE ; Start 07/21/18 at 14:56; Stop 07/21/18 at 14:57; Status DC Nitroglycerin (Nitroglycerin) 200 mcg 1X ONCE IART Last administered on 07/21/18at 15:55; Start 07/21/18 at 15:15; Stop 07/21/18 at 15:16; Status DC Vancomycin HCl 250 ml @ As Directed STK-MED ONCE .ROUTE ; Start 07/21/18 at 15:08; Stop 07/21/18 at 15:09; Status DC Vancomycin HCl 250 ml @ 250 mls/hr 1X ONCE IV Last administered on 07/21/18at 15:57; Start 07/21/18 at 15:15; Stop 07/21/18 at 16:14; Status DC Heparin Sodium (Porcine) (Heparin Sodium) 6,700 unit 1X ONCE IV Last administered on 07/21/18at 18:14; Start 07/21/18 at 16:45; Stop 07/21/18 at 16:50; Status DC Heparin Sodium/ Dextrose 500 ml @ 0 mls/hr CONT PRN IV SEE I/O RECORD Last administered on 07/22/18at 04:20; Start 07/21/18 at 16:45; Stop 07/23/18 at 11:10; Status DC Heparin Sodium (Porcine) (Heparin Sodium) 2,500 unit PRN Q6HRS PRN IV FOR UFH LEVEL LESS THAN 0.2; Start 07/21/18 at 16:45; Stop 07/23/18 at 11:14; Status DC Heparin Sodium (Porcine) (Heparin Sodium) 1,250 unit PRN Q6HRS PRN IV FOR UFH LEVEL 0.2 - 0.29 Last administered on 07/23/18at 06:19; Start 07/21/18 at 16:45; Stop 07/23/18 at 11:14; Status DC Info (Anti-Coagulation Monitoring By Pharmacy) 1 each PRN DAILY PRN MC SEE COMMENTS Last administered on 07/24/18at 16:09; Start 07/21/18 at 17:00 Gabapentin (Neurontin) 100 mg TID PO Last administered on 07/25/18at 22:30; Start 07/23/18 at 09:00 Non-Formulary Medication (Donepezil Hcl (Aricept)) 23 mg HS PO ; Start 07/23/18 at 21:00; Status UNV Levothyroxine Sodium (Synthroid) 50 mcg DAILY06 PO Last administered on 07/26/18at 04:36; Start 07/23/18 at 10:30 Memantine (Namenda) 10 mg DAILY PO Last administered on 07/25/18at 08:59; Start 07/23/18 at 09:00 Donepezil HCl (Aricept) 10 mg QHS PO Last administered on 07/23/18at 21:13; Start 07/23/18 at 21:00; Stop 07/24/18 at 11:38; Status DC Apixaban (Eliquis) 5 mg BID PO Last administered on 07/25/18at 22:30; Start 07/23/18 at 21:00 Alteplase, Recombinant (Cathflo For Central Catheter Clearance) 1 mg 1X ONCE INT CAT Last administered on 07/24/18at 10:04; Start 07/24/18 at 09:00; Stop 07/24/18 at 09:01; Status DC Acetaminophen/ Hydrocodone Bitart (Lortab 5/325) 1 tab PRN Q6HRS PRN PO PAIN Last administered on 07/26/18at 04:36; Start 07/24/18 at 10:30 Aspirin (Ecotrin) 81 mg DAILYWBKFT PO Last administered on 07/25/18at 09:00; Start 07/24/18 at 14:00 Active Scripts Active Hydrocodone-Apap 5-325 (Hydrocodone Bit/Acetaminophen) 1 Tab Tablet 1 Tab PO PRN Q6HRS PRN 6 Days Aspirin Ec (Aspirin) 81 Mg Tablet.dr 81 Mg PO DAILYWBKFT 30 Days Eliquis (Apixaban) 5 Mg Tablet 5 Mg PO BID 30 Days Reported Hydrocodone-Apap 5-325 (Hydrocodone Bit/Acetaminophen) 1 Tab Tablet 1 Tab PO PRN Q6HRS PRN Gabapentin (Gabapentin) 100 Mg Capsule 100 Mg PO TID Namenda (Memantine Hcl) 10 Mg Tablet 10 Mg PO DAILY Levothyroxine Sodium 50 Mcg Tablet 1 Tab PO DAILY Vitals/I & O Vital Sign - Last 24 Hours 07/25/18 07/25/18 07/25/18 07/25/18 10:41 15:55 19:40 20:00 Temp 97.4 98.5 97.4 98.5 Pulse 90 Resp 14 18 18 B/P (MAP) 101/55 (70) 128/67 (87) Pulse Ox 93 93 94 O2 Delivery Room Air Room Air Room Air Room Air O2 Flow Rate 1.0 07/25/18 07/25/18 07/25/18 07/25/18 20:33 22:31 23:01 23:36 Temp 98.2 98.2 Pulse 80 Resp 18 18 18 18 B/P (MAP) 112/64 (80) Pulse Ox 95 95 94 94 O2 Delivery Room Air Room Air Room Air Room Air 07/26/18 07/26/18 07/26/18 07/26/18 02:55 04:36 04:37 05:07 Temp 97.9 97.9 Pulse 62 Resp 20 18 18 18 B/P (MAP) 105/67 (80) Pulse Ox 93 93 93 93 O2 Delivery Room Air Room Air Room Air Room Air 07/26/18 07/26/18 07/26/18 05:36 07:00 08:00 Temp 97.5 97.5 Pulse 72 Resp 18 18 B/P (MAP) 103/61 (75) Pulse Ox 93 96 O2 Delivery Room Air Room Air Room Air Intake and Output 07/25/18 07/25/18 07/26/18 14:59 22:59 06:59 Intake Total 600 ml 200 ml 0 ml Output Total 200 ml 150 ml 350 ml Balance 400 ml 50 ml -350 ml TODD DIEGO MD Jul 26, 2018 10:21
[2018-07-26] MEDS: ASPIRIN ENTERIC COATED 81 MG TABLET.DR. PO SCH (10:33)
[2018-07-26] MEDS: GABAPENTIN 100 MG CAPSULE. PO SCH ×3 (10:33→20:40)
[2018-07-26] MEDS: MEMANTINE 10 MG TABLET. PO SCH (10:33)
[2018-07-26] MEDS: APIXABAN 5 MG TABLET. PO SCH ×2 (10:34→20:40)
[2018-07-26 11:00] VITALS: BP 99/56
[2018-07-26 15:00] VITALS: BP 112/63
[2018-07-26] MEDS: ANTI-COAG MONITOR BY PHARMACY. MC PRN (15:24)
[2018-07-26] MEDS: HYDROcodone/APAP 7.5/325MG 1 TAB TABLET PO PRN ×2 (15:27→20:40)
--- NOTE | 2018-07-26 17:00 | NUR ---
Right foot blood blister is larger than previous day and toes are more darker. Photo in the hard chart.
[2018-07-26 19:00] VITALS: BP 108/57
[2018-07-26 23:00] VITALS: BP 149/81
[2018-07-27] MEDS: HYDROcodone/APAP 7.5/325MG 1 TAB TABLET PO PRN ×3 (00:49→20:28)
[2018-07-27] MEDS: MORPHINE SULFATE 4 MG/ML VIAL. IV PRN (01:49)
[2018-07-27 03:00] VITALS: BP 97/57
[2018-07-27] MEDS: LEVOTHYROXINE 50 MCG TABLET PO SCH (05:38)
[2018-07-27 07:00] VITALS: BP 106/63
--- NOTE | 2018-07-27 08:08 | PDOC ---
PROGRESS NOTES Chief Complaint Chief Complaint arterial occlusion, embolic. s/p thrombectomy and TPA, Right Popliteal artery aneurysm. 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 Hypothyroidism PVD cognitive decline H/O prostate cancer History of Present Illness History of Present Illness Mr. Chakraborty is an 88 year old M w/ PMHx dementia, hypothyroidism, h/o colon cancer s/p resection who was admitted with a several month history of discoloration of his right foot and a 3-4 week history of worsening pain in his right foot. He denies any specific injury to his foot. He presented to his primary care physician a couple of days prior to admit At that time, he had an arterial ultrasound that showed bilateral popliteal artery aneurysms. There was flow through both aneurysms as well as relatively preserved arterial flow through his tibial vessels. He then presented to the Emergency Room with worsening pain and discoloration. A CT angiogram confirmed the area of popliteal artery aneurysms as well as flow in his right tibial vessels. He denied any family history of aneurysms. Seen by cardiology for new onset Afib and vascular surgery for his right leg pain. 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 Disease from clots that may have arisen from the aneurysm in the popliteal space. He also experienced some urinary retention and toscano was placed during vascular procedures which was removed for voiding trial on 07/24/18. Last evening c/o worse right foot pain and some blistering. D/w vascular surgery to have stat venous and arterial dopplers which show no new change in flow. D/w patient and [id number] bedside that ultimately he will likely need a TMA. He is unclear if he wants to wait. Foot is stable today. Vasc surg following Cont eliquis Stop aricept Can try for SNF d/c in the next 24 hours per vascular surgery Vitals Vitals Vital Signs Date Time Temp Pulse Resp B/P (MAP) Pulse Ox O2 Delivery O2 Flow Rate FiO2 07/27/18 03:00 97.3 62 16 97/57 (70) 97 Room Air 97.3 Physical Exam General: Alert, Cooperative, No acute distress Heart: Regular rate Lungs: Clear, Wheezing Abdomen: Soft, No tenderness Extremities: Other (Left popliteal pulse prominent, left DP palpable. Right foot cannot appreciate pulses, however great doppler signals. Right 2-4 toes are still slightly more pale than rest of foot with minimal purple discoloration. Cap refill about 4 sec. Hyperemia to midfoot and proximal to ankle. ) Skin: No breakdown, No significant lesion Assessment and Plan Assessmemt and Plan Problems Medical Problems: (1) Leg pain Status: Acute (2) PVD (peripheral vascular disease) Status: Acute Comment Review of Relevant I have reviewed the following items mendoza (where applicable) has been applied. Medications Current Medications Morphine Sulfate (Morphine Sulfate) 2 mg 1X ONCE IV Last administered on 07/19/18at 11:19; Start 07/19/18 at 11:00; Stop 07/19/18 at 11:07; Status DC Sodium Chloride 1,000 ml @ 100 mls/hr Q10H IV Last administered on 07/19/18at 11:17; Start 07/19/18 at 10:50; Stop 07/19/18 at 20:49; Status DC Iohexol (Omnipaque 350 Mg/ml) 95 ml 1X ONCE IV Last administered on 07/19/18at 11:45; Start 07/19/18 at 11:45; Stop 07/19/18 at 11:46; Status DC Morphine Sulfate (Morphine Sulfate) 4 mg 1X ONCE IV Last administered on 07/19/18at 11:54; Start 07/19/18 at 12:00; Stop 07/19/18 at 12:01; Status DC Hydromorphone HCl (Dilaudid) 1 mg 1X ONCE IV Last administered on 07/19/18at 14:25; Start 07/19/18 at 14:30; Stop 07/19/18 at 14:31; Status DC Morphine Sulfate (Morphine Sulfate) 4 mg PRN Q2HR PRN IV PAIN Last administered on 07/20/18at 11:14; Start 07/19/18 at 14:45; Stop 07/20/18 at 14:44; Status DC Heparin Sodium (Porcine) (Heparin Sodium) 6,900 unit 1X ONCE IV Last administered on 07/19/18at 21:21; Start 07/19/18 at 19:15; Stop 07/19/18 at 19:21; Status DC Heparin Sodium/ Dextrose 500 ml @ 0 mls/hr CONT PRN IV SEE I/O RECORD; Start 07/19/18 at 19:15; Stop 07/20/18 at 17:25; Status DC Heparin Sodium (Porcine) (Heparin Sodium) 2,150 unit PRN Q6HRS PRN IV FOR UFH LEVEL LESS THAN 0.2 Last administered on 07/20/18at 04:37; Start 07/19/18 at 19:15; Stop 07/21/18 at 16:42; Status DC Sodium Chloride 1,000 ml @ 50 mls/hr Q20H IV Last administered on 07/25/18at 05:08; Start 07/19/18 at 19:45; Stop 07/26/18 at 13:46; Status DC Lorazepam (Ativan Inj) 2 mg 1X ONCE IM/IV Last administered on 07/20/18at 03:30; Start 07/20/18 at 03:30; Stop 07/20/18 at 03:31; Status DC Haloperidol (Haldol) 5 mg PRN Q6HRS PRN PO AGITATION Last administered on 07/22/18at 16:34; Start 07/20/18 at 03:15; Stop 07/24/18 at 15:59; Status DC Iodixanol (Visipaque 320) 100 ml STK-MED ONCE .ROUTE ; Start 07/20/18 at 12:30; Stop 07/20/18 at 12:31; Status DC Lidocaine/Sodium Bicarbonate (Buffered Lidocaine 1%) 3 ml STK-MED ONCE .ROUTE ; Start 07/20/18 at 12:30; Stop 07/20/18 at 12:31; Status DC Heparin Sodium/ Sodium Chloride 500 ml @ As Directed STK-MED ONCE .ROUTE ; Start 07/20/18 at 12:30; Stop 07/20/18 at 12:31; Status DC Heparin Sodium/ Sodium Chloride 500 ml @ As Directed STK-MED ONCE .ROUTE ; Start 07/20/18 at 12:31; Stop 07/20/18 at 12:32; Status DC Info (Anti-Coagulation Monitoring By Pharmacy) 1 each PRN DAILY PRN MC SEE COMMENTS Last administered on 07/21/18at 14:55; Start 07/20/18 at 12:45; Stop 07/21/18 at 16:43; Status DC Midazolam HCl (Versed) 2 mg STK-MED ONCE .ROUTE ; Start 07/20/18 at 13:08; Stop 07/20/18 at 13:09; Status DC Fentanyl Citrate (Fentanyl 2ml Vial) 100 mcg STK-MED ONCE .ROUTE ; Start 07/20/18 at 13:09; Stop 07/20/18 at 13:10; Status DC Heparin Sodium (Porcine) (Heparin Sodium) 10,000 unit STK-MED ONCE .ROUTE ; Start 07/20/18 at 13:09; Stop 07/20/18 at 13:10; Status DC Heparin Sodium/ Sodium Chloride (HEPARIN for ARTERIAL LINE FLUSH) 1,000 unit 1X ONCE IART Last administered on 07/20/18at 13:15; Start 07/20/18 at 13:15; Stop 07/20/18 at 13:20; Status DC Heparin Sodium/ Sodium Chloride (HEPARIN for ARTERIAL LINE FLUSH) 1,000 unit 1X ONCE IART Last administered on 07/20/18at 13:15; Start 07/20/18 at 13:15; Stop 07/20/18 at 13:20; Status DC Lidocaine/Sodium Bicarbonate (Buffered Lidocaine 1%) 3 ml 1X ONCE IJ Last administered on 07/20/18at 13:15; Start 07/20/18 at 13:15; Stop 07/20/18 at 13:20; Status DC Midazolam HCl (Versed) 2 mg 1X ONCE IV Last administered on 07/20/18at 13:15; Start 07/20/18 at 13:15; Stop 07/20/18 at 13:20; Status DC Fentanyl Citrate (Fentanyl 2ml Vial) 100 mcg 1X ONCE IV Last administered on 07/20/18at 13:15; Start 07/20/18 at 13:15; Stop 07/20/18 at 13:20; Status DC Iodixanol (Visipaque 320) 100 ml 1X ONCE IART Last administered on 07/20/18at 13:15; Start 07/20/18 at 13:15; Stop 07/20/18 at 13:20; Status DC Heparin Sodium (Porcine) (Heparin Sodium) 5,000 unit 1X ONCE IV Last administered on 07/20/18at 14:30; Start 07/20/18 at 14:30; Stop 07/20/18 at 14:32; Status DC Lidocaine/Sodium Bicarbonate (Buffered Lidocaine 1%) 3 ml STK-MED ONCE .ROUTE ; Start 07/20/18 at 15:54; Stop 07/20/18 at 15:55; Status DC Heparin Sodium/ Sodium Chloride 500 ml @ As Directed STK-MED ONCE .ROUTE ; Start 07/20/18 at 16:27; Stop 07/20/18 at 16:28; Status DC Alteplase, Recombinant 25 mg/ Sodium Chloride 250 ml @ 10 mls/hr Q25H IV ; Start 07/20/18 at 16:30; Status Cancel Alteplase, Recombinant 25 mg/ Sodium Chloride 250 ml @ 10 mls/hr 1X ONCE IV Last administered on 07/20/18at 18:16; Start 07/20/18 at 17:30; Stop 07/21/18 at 18:29; Status DC Heparin Sodium/ Dextrose 500 ml @ 0 mls/hr CONT PRN IV SEE I/O RECORD Last adm inistered on 07/20/18at 18:15; Start 07/20/18 at 17:30; Stop 07/21/18 at 16:42; Status DC Morphine Sulfate (Morphine Sulfate) 4 mg PRN Q2HR PRN IV PAIN Last administered on 07/27/18at 01:49; Start 07/20/18 at 21:00 Haloperidol Lactate (Haldol Inj) 2 mg 1X ONCE IV Last administered on 07/20/18at 21:25; Start 07/20/18 at 22:00; Stop 07/20/18 at 22:01; Status DC Lorazepam (Ativan Inj) 0.25 mg PRN Q4HRS PRN IV ANXIETY / AGITATION Last administered on 07/23/18at 08:18; Start 07/20/18 at 21:30; Stop 07/24/18 at 15:59; Status DC Iodixanol (Visipaque 320) 100 ml STK-MED ONCE .ROUTE ; Start 07/21/18 at 12:29; Stop 07/21/18 at 12:30; Status DC Heparin Sodium/ Sodium Chloride 500 ml @ As Directed STK-MED ONCE .ROUTE ; Start 07/21/18 at 12:29; Stop 07/21/18 at 12:30; Status DC Lidocaine/Sodium Bicarbonate (Buffered Lidocaine 1%) 3 ml STK-MED ONCE .ROUTE ; Start 07/21/18 at 12:34; Stop 07/21/18 at 12:35; Status DC Lidocaine/Sodium Bicarbonate (Buffered Lidocaine 1%) 3 ml STK-MED ONCE .ROUTE ; Start 07/21/18 at 12:36; Stop 07/21/18 at 12:37; Status DC Midazolam HCl (Versed) 2 mg STK-MED ONCE .ROUTE ; Start 07/21/18 at 12:36; Stop 07/21/18 at 12:37; Status DC Fentanyl Citrate (Fentanyl 2ml Vial) 100 mcg STK-MED ONCE .ROUTE ; Start 07/21/18 at 12:36; Stop 07/21/18 at 12:37; Status DC Heparin Sodium (Porcine) (Heparin Sodium) 10,000 unit STK-MED ONCE .ROUTE ; Start 07/21/18 at 13:28; Stop 07/21/18 at 13:29; Status DC Midazolam HCl (Versed) 2 mg 1X ONCE IV Last administered on 07/21/18at 15:53; Start 07/21/18 at 13:45; Stop 07/21/18 at 13:46; Status DC Fentanyl Citrate (Fentanyl 2ml Vial) 100 mcg 1X ONCE IV Last administered on 07/21/18at 15:53; Start 07/21/18 at 13:45; Stop 07/21/18 at 13:46; Status DC Iodixanol (Visipaque 320) 100 ml 1X ONCE IART Last administered on 07/21/18at 15:52; Start 07/21/18 at 13:45; Stop 07/21/18 at 13:46; Status DC Heparin Sodium (Porcine) (Heparin Sodium) 5,000 unit 1X ONCE IV Last admin istered on 07/21/18at 15:58; Start 07/21/18 at 13:30; Stop 07/21/18 at 13:40; Status DC Heparin Sodium/ Sodium Chloride 500 ml @ As Directed STK-MED ONCE .ROUTE ; Start 07/21/18 at 14:40; Stop 07/21/18 at 14:41; Status DC Heparin Sodium/ Sodium Chloride (HEPARIN for ARTERIAL LINE FLUSH) 1,000 unit 1X ONCE IART Last administered on 07/21/18at 15:49; Start 07/21/18 at 14:45; Stop 07/21/18 at 14:47; Status DC Heparin Sodium/ Sodium Chloride (HEPARIN for ARTERIAL LINE FLUSH) 1,000 unit 1X ONCE IART Last administered on 07/21/18at 15:49; Start 07/21/18 at 14:45; Stop 07/21/18 at 14:47; Status DC Lidocaine/Sodium Bicarbonate (Buffered Lidocaine 1%) 3 ml 1X ONCE IJ Last administered on 07/21/18at 15:51; Start 07/21/18 at 14:45; Stop 07/21/18 at 14:47; Status DC Iodixanol (Visipaque 320) 100 ml STK-MED ONCE .ROUTE ; Start 07/21/18 at 14:46; Stop 07/21/18 at 14:47; Status DC Midazolam HCl (Versed) 2 mg STK-MED ONCE .ROUTE ; Start 07/21/18 at 14:52; Stop 07/21/18 at 14:53; Status DC Fentanyl Citrate (Fentanyl 2ml Vial) 100 mcg STK-MED ONCE .ROUTE ; Start 07/21/18 at 14:52; Stop 07/21/18 at 14:53; Status DC Alteplase, Recombinant 10 mg/ Sodium Chloride 100 ml @ 10 mls/hr 1X ONCE IV Last administered on 07/21/18at 15:50; Start 07/21/18 at 15:00; Stop 07/22/18 at 00:59; Status DC Heparin Sodium/ Sodium Chloride 500 ml @ As Directed STK-MED ONCE .ROUTE ; Start 07/21/18 at 14:56; Stop 07/21/18 at 14:57; Status DC Nitroglycerin (Nitroglycerin) 200 mcg 1X ONCE IART Last administered on 07/21/18at 15:55; Start 07/21/18 at 15:15; Stop 07/21/18 at 15:16; Status DC Vancomycin HCl 250 ml @ As Directed STK-MED ONCE .ROUTE ; Start 07/21/18 at 15:08; Stop 07/21/18 at 15:09; Status DC Vancomycin HCl 250 ml @ 250 mls/hr 1X ONCE IV Last administered on 07/21/18at 15:57; Start 07/21/18 at 15:15; Stop 07/21/18 at 16:14; Status DC Heparin Sodium (Porcine) (Heparin Sodium) 6,700 unit 1X ONCE IV Last administered on 07/21/18at 18:14; Start 07/21/18 at 16:45; Stop 07/21/18 at 16:50; Status DC Heparin Sodium/ Dextrose 500 ml @ 0 mls/hr CONT PRN IV SEE I/O RECORD Last administered on 07/22/18at 04:20; Start 07/21/18 at 16:45; Stop 07/23/18 at 11:10; Status DC Heparin Sodium (Porcine) (Heparin Sodium) 2,500 unit PRN Q6HRS PRN IV FOR UFH LEVEL LESS THAN 0.2; Start 07/21/18 at 16:45; Stop 07/23/18 at 11:14; Status DC Heparin Sodium (Porcine) (Heparin Sodium) 1,250 unit PRN Q6HRS PRN IV FOR UFH LEVEL 0.2 - 0.29 Last administered on 07/23/18at 06:19; Start 07/21/18 at 16:45; Stop 07/23/18 at 11:14; Status DC Info (Anti-Coagulation Monitoring By Pharmacy) 1 each PRN DAILY PRN MC SEE COMMENTS Last administered on 07/26/18at 15:24; Start 07/21/18 at 17:00 Gabapentin (Neurontin) 100 mg TID PO Last administered on 07/26/18at 20:40; Start 07/23/18 at 09:00 Non-Formulary Medication (Donepezil Hcl (Aricept)) 23 mg HS PO ; Start 07/23/18 at 21:00; Status UNV Levothyroxine Sodium (Synthroid) 50 mcg DAILY06 PO Last administered on 07/27/18at 05:38; Start 07/23/18 at 10:30 Memantine (Namenda) 10 mg DAILY PO Last administered on 07/26/18at 10:33; Start 07/23/18 at 09:00 Donepezil HCl (Aricept) 10 mg QHS PO Last administered on 07/23/18 21:13; Start 07/23/18 at 21:00; Stop 07/24/18 at 11:38; Status DC Apixaban (Eliquis) 5 mg BID PO Last administered on 07/26/18 20:40; Start 07/23/18 at 21:00 Alteplase, Recombinant (Cathflo For Central Catheter Clearance) 1 mg 1X ONCE INT CAT Last administered on 07/24/18at 10:04; Start 07/24/18 at 09:00; Stop 07/24/18 at 09:01; Status DC Acetaminophen/ Hydrocodone Bitart (Lortab 5/325) 1 tab PRN Q6HRS PRN PO PAIN Last administered on 07/26/18at 04:36; Start 07/24/18 at 10:30; Stop 07/26/18 at 15:14; Status DC Aspirin (Ecotrin) 81 mg DAILYWBKFT PO Last administered on 07/26/18at 10:33; Start 07/24/18 at 14:00 Acetaminophen/ Hydrocodone Bitart (Lortab 7.5/325) 1 tab PRN Q4HRS PRN PO PAIN Last administered on 07/27/18at 00:49; Start 07/26/18 at 15:15 Active Scripts Active Hydrocodone-Apap 5-325 (Hydrocodone Bit/Acetaminophen) 1 Tab Tablet 1 Tab PO PRN Q6HRS PRN 6 Days Aspirin Ec (Aspirin) 81 Mg Tablet.dr 81 Mg PO DAILYWBKFT 30 Days Eliquis (Apixaban) 5 Mg Tablet 5 Mg PO BID 30 Days Reported Hydrocodone-Apap 5-325 (Hydrocodone Bit/Acetaminophen) 1 Tab Tablet 1 Tab PO PRN Q6HRS PRN Gabapentin (Gabapentin) 100 Mg Capsule 100 Mg PO TID Namenda (Memantine Hcl) 10 Mg Tablet 10 Mg PO DAILY Levothyroxine Sodium 50 Mcg Tablet 1 Tab PO DAILY Vitals/I & O Vital Sign - Last 24 Hours 07/26/18 07/26/18 07/26/18 07/26/18 11:00 15:00 15:27 19:00 Temp 97.9 98.4 97.5 97.9 98.4 97.5 Pulse 84 80 72 Resp 16 16 16 18 B/P (MAP) 99/56 (70) 112/63 (79) 108/57 (74) Pulse Ox 97 96 96 96 O2 Delivery Room Air Room Air Room Air Room Air 07/26/18 07/26/18 07/26/18 07/27/18 19:52 20:40 23:00 00:49 Temp 98.7 98.7 Pulse 69 Resp 18 18 18 B/P (MAP) 149/81 (103) Pulse Ox 95 94 94 O2 Delivery Room Air Room Air Room Air Room Air 07/27/18 07/27/18 07/27/18 07/27/18 01:49 01:49 02:19 03:00 Temp 97.3 97.3 Pulse 62 Resp 18 18 18 16 B/P (MAP) 97/57 (70) Pulse Ox 94 94 94 97 O2 Delivery Room Air Room Air Room Air Room Air l Intake and Output 07/26/18 07/26/18 07/27/18 15:00 23:00 07:00 Intake Total 330 ml 200 ml Output Total 200 ml 300 ml 400 ml Balance 130 ml -100 ml -400 ml Nutrition Consultation Dietary Evaluation: Recommendations by RD: Increase Calorie Intake Comments: Continue w/cardiac diet as ordered, honor food preferences, and provide snacks as requested Expected Outcomes/Goals: PO intake to meet >75% est needs - met, goal ongoing Malnutrition Findings: Body Fat Depletion (Non Severe: Mild Depletion Weight Status: Appropriate QAMAR SHARMA MD Jul 27, 2018 08:08
[2018-07-27] MEDS: APIXABAN 5 MG TABLET. PO SCH ×2 (08:46→20:28)
[2018-07-27] MEDS: MEMANTINE 10 MG TABLET. PO SCH (08:46)
[2018-07-27] MEDS: ASPIRIN ENTERIC COATED 81 MG TABLET.DR. PO SCH (08:46)
--- NOTE | 2018-07-27 09:25 | PDOC ---
Provider Note Provider Note S: Pt seen and examined in his hospital bed, he is feeling well today. He still complains of mild pain to right fore foot and toes that does not radiate, but somewhat improved. He has gotten to chair and is able to bear weight for transfers without severe pain. He has good appetite and eating well. O: VSS, afebrile Respirations nonlabored Abdomen soft, nondistended Right lower leg and foot hyperemic, warm to touch. 3rd and 4th toes are dusky in appearance. Plantar surface forefoot extending to distal midfoot with some areas of dark superficial appearing necrosis, still soft at this point. Blister overlying plantar 1st met head. Some scattered skin discoloration and changes to plantar surface 1st toe. His tenderness to touch is less than significant than previously throughout exam Right pedal pulses are palpable. A/P: Symptomatic rt popliteal aneurysm, s/p stent placement and thrombolysis - noted poor forefoot circulation post treatment. - He has palpable pulses indicating patency. His pain has slightly improved. 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 Pt exhibited understanding. We recommend continued monitoring, watching for further demarcation with continued antiplatelet and eliquis therapy and pain control. Anticipate possible discharge while awaiting demarcation with close monitoring of right foot, possibly after surgeon see's patient tomorrow. Ok for discharge f/u next week to re-eval forefoot and possibly to schedule for forefoot amputation SARATH DINERO Jul 27, 2018 09:25 MONIQUE HERNANDEZ MD Jul 27, 2018 16:20
[2018-07-27 11:00] VITALS: BP 105/69
[2018-07-27] MEDS: GABAPENTIN 100 MG CAPSULE. PO SCH ×3 (11:37→20:28)
--- NOTE | 2018-07-27 11:59 | NUR ---
SS following up with discharge planning. SS phoned and faxed clinical updates to [place], ; fax [phone]. Pt accepted at [place].
[2018-07-27 15:00] VITALS: BP 107/64
[2018-07-27 19:00] VITALS: BP 118/72
[2018-07-27 22:40] VITALS: BP 103/71
[2018-07-28 02:18] VITALS: BP 102/61
[2018-07-28] MEDS: LEVOTHYROXINE 50 MCG TABLET PO SCH (04:31)
[2018-07-28] MEDS: HYDROcodone/APAP 7.5/325MG 1 TAB TABLET PO PRN (04:31)
[2018-07-28 07:00] VITALS: BP 137/80
[2018-07-28] MEDS: GABAPENTIN 100 MG CAPSULE. PO SCH ×2 (08:47→14:37)
[2018-07-28] MEDS: MEMANTINE 10 MG TABLET. PO SCH (08:48)
[2018-07-28] MEDS: ASPIRIN ENTERIC COATED 81 MG TABLET.DR. PO SCH (08:48)
[2018-07-28] MEDS: APIXABAN 5 MG TABLET. PO SCH (08:48)
--- NOTE | 2018-07-28 10:11 | PDOC ---
PROGRESS NOTES Chief Complaint Chief Complaint Arterial occlusion, embolic. s/p thrombectomy and TPA, Right Popliteal artery aneurysm. 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 Hypothyroidism PVD cognitive decline H/O prostate cancer History of Present Illness History of Present Illness Mr. Chakraborty is an 88 year old M w/ PMHx dementia, hypothyroidism, h/o colon cancer s/p resection who was admitted with a several month history of discoloration of his right foot and a 3-4 week history of worsening pain in his right foot. He denies any specific injury to his foot. He presented to his primary care physician a couple of days prior to admit At that time, he had an arterial ultrasound that showed bilateral popliteal artery aneurysms. There was flow through both aneurysms as well as relatively preserved arterial flow through his tibial vessels. He then presented to the Emergency Room with worsening pain and discoloration. A CT angiogram confirmed the area of popliteal artery aneurysms as well as flow in his right tibial vessels. He denied any family history of aneurysms. Seen by cardiology for new onset Afib and vascular surgery for his right leg pain. 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 Disease from clots that may have arisen from the aneurysm in the popliteal space. He also experienced some urinary retention and toscano was placed during vascular procedures which was removed for voiding trial on 07/24/18. Last evening c/o worse right foot pain and some blistering. D/w vascular surgery to have stat venous and arterial dopplers which show no new change in flow. D/w patient and [id number] bedside that ultimately he will likely need a TMA. He is unclear if he wants to wait. Foot is stable today. Vasc surg following Cont eliquis Stop aricept Can try for SNF d/c in the next 24 hours per vascular surgery Vitals Vitals Vital Signs Date Time Temp Pulse Resp B/P (MAP) Pulse Ox O2 Delivery O2 Flow Rate FiO2 07/28/18 07:39 Room Air 07/28/18 07:00 97.3 85 18 137/80 (99) 99 97.3 07/27/18 15:00 1.0 Physical Exam General: Alert, Cooperative, No acute distress Heart: Regular rate Lungs: Clear, Wheezing Abdomen: Soft, No tenderness Extremities: Other (Left popliteal pulse prominent, left DP palpable. Right foot cannot appreciate pulses, however great doppler signals. Right 2-4 toes are still slightly more pale than rest of foot with minimal purple discoloration. Cap refill about 4 sec. Hyperemia to midfoot and proximal to ankle. ) Skin: No breakdown, No significant lesion Assessment and Plan Assessmemt and Plan Problems Medical Problems: (1) Leg pain Status: Acute (2) PVD (peripheral vascular disease) Status: Acute Comment Review of Relevant I have reviewed the following items mendoza (where applicable) has been applied. Medications Current Medications Morphine Sulfate (Morphine Sulfate) 2 mg 1X ONCE IV Last administered on 07/19/18 11:19; Start 07/19/18 at 11:00; Stop 07/19/18 at 11:07; Status DC Sodium Chloride 1,000 ml @ 100 mls/hr Q10H IV Last administered on 07/19/18 11:17; Start 07/19/18 at 10:50; Stop 07/19/18 at 20:49; Status DC Iohexol (Omnipaque 350 Mg/ml) 95 ml 1X ONCE IV Last administered on 07/19/18 11:45; Start 07/19/18 at 11:45; Stop 07/19/18 at 11:46; Status DC Morphine Sulfate (Morphine Sulfate) 4 mg 1X ONCE IV Last administered on 07/19/18 11:54; Start 07/19/18 at 12:00; Stop 07/19/18 at 12:01; Status DC Hydromorphone HCl (Dilaudid) 1 mg 1X ONCE IV Last administered on 07/19/18 14:25; Start 07/19/18 at 14:30; Stop 07/19/18 at 14:31; Status DC Morphine Sulfate (Morphine Sulfate) 4 mg PRN Q2HR PRN IV PAIN Last administered on 07/20/18 11:14; Start 07/19/18 at 14:45; Stop 07/20/18 at 14:44; Status DC Heparin Sodium (Porcine) (Heparin Sodium) 6,900 unit 1X ONCE IV Last administered on 07/19/18 21:21; Start 07/19/18 at 19:15; Stop 07/19/18 at 19:21; Status DC Heparin Sodium/ Dextrose 500 ml @ 0 mls/hr CONT PRN IV SEE I/O RECORD; Start 07/19/18 at 19:15; Stop 07/20/18 at 17:25; Status DC Heparin Sodium (Porcine) (Heparin Sodium) 2,150 unit PRN Q6HRS PRN IV FOR UFH LEVEL LESS THAN 0.2 Last administered on 07/20/18at 04:37; Start 07/19/18 at 19:15; Stop 07/21/18 at 16:42; Status DC Sodium Chloride 1,000 ml @ 50 mls/hr Q20H IV Last administered on 07/25/18at 05:08; Start 07/19/18 at 19:45; Stop 07/26/18 at 13:46; Status DC Lorazepam (Ativan Inj) 2 mg 1X ONCE IM/IV Last administered on 07/20/18at 03:30; Start 07/20/18 at 03:30; Stop 07/20/18 at 03:31; Status DC Haloperidol (Haldol) 5 mg PRN Q6HRS PRN PO AGITATION Last administered on 07/22/18at 16:34; Start 07/20/18 at 03:15; Stop 07/24/18 at 15:59; Status DC Iodixanol (Visipaque 320) 100 ml STK-MED ONCE .ROUTE ; Start 07/20/18 at 12:30; Stop 07/20/18 at 12:31; Status DC Lidocaine/Sodium Bicarbonate (Buffered Lidocaine 1%) 3 ml STK-MED ONCE .ROUTE ; Start 07/20/18 at 12:30; Stop 07/20/18 at 12:31; Status DC Heparin Sodium/ Sodium Chloride 500 ml @ As Directed STK-MED ONCE .ROUTE ; Start 07/20/18 at 12:30; Stop 07/20/18 at 12:31; Status DC Heparin Sodium/ Sodium Chloride 500 ml @ As Directed STK-MED ONCE .ROUTE ; Start 07/20/18 at 12:31; Stop 07/20/18 at 12:32; Status DC Info (Anti-Coagulation Monitoring By Pharmacy) 1 each PRN DAILY PRN MC SEE COMMENTS Last administered on 07/21/18at 14:55; Start 07/20/18 at 12:45; Stop 07/21/18 at 16:43; Status DC Midazolam HCl (Versed) 2 mg STK-MED ONCE .ROUTE ; Start 07/20/18 at 13:08; Stop 07/20/18 at 13:09; Status DC Fentanyl Citrate (Fentanyl 2ml Vial) 100 mcg STK-MED ONCE .ROUTE ; Start 07/20/18 at 13:09; Stop 07/20/18 at 13:10; Status DC Heparin Sodium (Porcine) (Heparin Sodium) 10,000 unit STK-MED ONCE .ROUTE ; Start 07/20/18 at 13:09; Stop 07/20/18 at 13:10; Status DC Heparin Sodium/ Sodium Chloride (HEPARIN for ARTERIAL LINE FLUSH) 1,000 unit 1X ONCE IART Last administered on 07/20/18at 13:15; Start 07/20/18 at 13:15; Stop 07/20/18 at 13:20; Status DC Heparin Sodium/ Sodium Chloride (HEPARIN for ARTERIAL LINE FLUSH) 1,000 unit 1X ONCE IART Last administered on 07/20/18at 13:15; Start 07/20/18 at 13:15; Stop 07/20/18 at 13:20; Status DC Lidocaine/Sodium Bicarbonate (Buffered Lidocaine 1%) 3 ml 1X ONCE IJ Last administered on 07/20/18 13:15; Start 07/20/18 at 13:15; Stop 07/20/18 at 13:20; Status DC Midazolam HCl (Versed) 2 mg 1X ONCE IV Last administered on 07/20/18 13:15; Start 07/20/18 at 13:15; Stop 07/20/18 at 13:20; Status DC Fentanyl Citrate (Fentanyl 2ml Vial) 100 mcg 1X ONCE IV Last administered on 07/20/18 13:15; Start 07/20/18 at 13:15; Stop 07/20/18 at 13:20; Status DC Iodixanol (Visipaque 320) 100 ml 1X ONCE IART Last administered on 07/20/18 13:15; Start 07/20/18 at 13:15; Stop 07/20/18 at 13:20; Status DC Heparin Sodium (Porcine) (Heparin Sodium) 5,000 unit 1X ONCE IV Last administered on 07/20/18 14:30; Start 07/20/18 at 14:30; Stop 07/20/18 at 14:32; Status DC Lidocaine/Sodium Bicarbonate (Buffered Lidocaine 1%) 3 ml STK-MED ONCE .ROUTE ; Start 07/20/18 at 15:54; Stop 07/20/18 at 15:55; Status DC Heparin Sodium/ Sodium Chloride 500 ml @ As Directed STK-MED ONCE .ROUTE ; Start 07/20/18 at 16:27; Stop 07/20/18 at 16:28; Status DC Alteplase, Recombinant 25 mg/ Sodium Chloride 250 ml @ 10 mls/hr Q25H IV ; Start 07/20/18 at 16:30; Status Cancel Alteplase, Recombinant 25 mg/ Sodium Chloride 250 ml @ 10 mls/hr 1X ONCE IV Last administered on 07/20/18at 18:16; Start 07/20/18 at 17:30; Stop 07/21/18 at 18:29; Status DC Heparin Sodium/ Dextrose 500 ml @ 0 mls/hr CONT PRN IV SEE I/O RECORD Last administered on 07/20/18at 18:15; Start 07/20/18 at 17:30; Stop 07/21/18 at 16:42; Status DC Morphine Sulfate (Morphine Sulfate) 4 mg PRN Q2HR PRN IV PAIN Last administered on 07/27/18at 01:49; Start 07/20/18 at 21:00 Haloperidol Lactate (Haldol Inj) 2 mg 1X ONCE IV Last administered on 07/20/18at 21:25; Start 07/20/18 at 22:00; Stop 07/20/18 at 22:01; Status DC Lorazepam (Ativan Inj) 0.25 mg PRN Q4HRS PRN IV ANXIETY / AGITATION Last administered on 07/23/18at 08:18; Start 07/20/18 at 21:30; Stop 07/24/18 at 15:59; Status DC Iodixanol (Visipaque 320) 100 ml STK-MED ONCE .ROUTE ; Start 07/21/18 at 12:29; Stop 07/21/18 at 12:30; Status DC Heparin Sodium/ Sodium Chloride 500 ml @ As Directed STK-MED ONCE .ROUTE ; Start 07/21/18 at 12:29; Stop 07/21/18 at 12:30; Status DC Lidocaine/Sodium Bicarbonate (Buffered Lidocaine 1%) 3 ml STK-MED ONCE .ROUTE ; Start 07/21/18 at 12:34; Stop 07/21/18 at 12:35; Status DC Lidocaine/Sodium Bicarbonate (Buffered Lidocaine 1%) 3 ml STK-MED ONCE .ROUTE ; Start 07/21/18 at 12:36; Stop 07/21/18 at 12:37; Status DC Midazolam HCl (Versed) 2 mg STK-MED ONCE .ROUTE ; Start 07/21/18 at 12:36; Stop 07/21/18 at 12:37; Status DC Fentanyl Citrate (Fentanyl 2ml Vial) 100 mcg STK-MED ONCE .ROUTE ; Start 07/21/18 at 12:36; Stop 07/21/18 at 12:37; Status DC Heparin Sodium (Porcine) (Heparin Sodium) 10,000 unit STK-MED ONCE .ROUTE ; S tart 07/21/18 at 13:28; Stop 07/21/18 at 13:29; Status DC Midazolam HCl (Versed) 2 mg 1X ONCE IV Last administered on 07/21/18at 15:53; Start 07/21/18 at 13:45; Stop 07/21/18 at 13:46; Status DC Fentanyl Citrate (Fentanyl 2ml Vial) 100 mcg 1X ONCE IV Last administered on 07/21/18at 15:53; Start 07/21/18 at 13:45; Stop 07/21/18 at 13:46; Status DC Iodixanol (Visipaque 320) 100 ml 1X ONCE IART Last administered on 07/21/18at 15:52; Start 07/21/18 at 13:45; Stop 07/21/18 at 13:46; Status DC Heparin Sodium (Porcine) (Heparin Sodium) 5,000 unit 1X ONCE IV Last administered on 07/21/18at 15:58; Start 07/21/18 at 13:30; Stop 07/21/18 at 13:40; Status DC Heparin Sodium/ Sodium Chloride 500 ml @ As Directed STK-MED ONCE .ROUTE ; Start 07/21/18 at 14:40; Stop 07/21/18 at 14:41; Status DC Heparin Sodium/ Sodium Chloride (HEPARIN for ARTERIAL LINE FLUSH) 1,000 unit 1X ONCE IART Last administered on 07/21/18at 15:49; Start 07/21/18 at 14:45; Stop 07/21/18 at 14:47; Status DC Heparin Sodium/ Sodium Chloride (HEPARIN for ARTERIAL LINE FLUSH) 1,000 unit 1X ONCE IART Last administered on 07/21/18at 15:49; Start 07/21/18 at 14:45; Stop 07/21/18 at 14:47; Status DC Lidocaine/Sodium Bicarbonate (Buffered Lidocaine 1%) 3 ml 1X ONCE IJ Last administered on 07/21/18at 15:51; Start 07/21/18 at 14:45; Stop 07/21/18 at 14:47; Status DC Iodixanol (Visipaque 320) 100 ml STK-MED ONCE .ROUTE ; Start 07/21/18 at 14:46; Stop 07/21/18 at 14:47; Status DC Midazolam HCl (Versed) 2 mg STK-MED ONCE .ROUTE ; Start 07/21/18 at 14:52; Stop 07/21/18 at 14:53; Status DC Fentanyl Citrate (Fentanyl 2ml Vial) 100 mcg STK-MED ONCE .ROUTE ; Start 07/21/18 at 14:52; Stop 07/21/18 at 14:53; Status DC Alteplase, Recombinant 10 mg/ Sodium Chloride 100 ml @ 10 mls/hr 1X ONCE IV Last administered on 07/21/18at 15:50; Start 07/21/18 at 15:00; Stop 07/22/18 at 00:59; Status DC Heparin Sodium/ Sodium Chloride 500 ml @ As Directed STK-MED ONCE .ROUTE ; Start 07/21/18 at 14:56; Stop 07/21/18 at 14:57; Status DC Nitroglycerin (Nitroglycerin) 200 mcg 1X ONCE IART Last administered on 07/21/18at 15:55; Start 07/21/18 at 15:15; Stop 07/21/18 at 15:16; Status DC Vancomycin HCl 250 ml @ As Directed STK-MED ONCE .ROUTE ; Start 07/21/18 at 15:08; Stop 07/21/18 at 15:09; Status DC Vancomycin HCl 250 ml @ 250 mls/hr 1X ONCE IV Last administered on 07/21/18at 15:57; Start 07/21/18 at 15:15; Stop 07/21/18 at 16:14; Status DC Heparin Sodium (Porcine) (Heparin Sodium) 6,700 unit 1X ONCE IV Last administered on 07/21/18at 18:14; Start 07/21/18 at 16:45; Stop 07/21/18 at 16:50; Status DC Heparin Sodium/ Dextrose 500 ml @ 0 mls/hr CONT PRN IV SEE I/O RECORD Last administered on 07/22/18at 04:20; Start 07/21/18 at 16:45; Stop 07/23/18 at 11:10; Status DC Heparin Sodium (Porcine) (Heparin Sodium) 2,500 unit PRN Q6HRS PRN IV FOR UFH LEVEL LESS THAN 0.2; Start 07/21/18 at 16:45; Stop 07/23/18 at 11:14; Status DC Heparin Sodium (Porcine) (Heparin Sodium) 1,250 unit PRN Q6HRS PRN IV FOR UFH LEVEL 0.2 - 0.29 Last administered on 07/23/18at 06:19; Start 07/21/18 at 16:45; Stop 07/23/18 at 11:14; Status DC Info (Anti-Coagulation Monitoring By Pharmacy) 1 each PRN DAILY PRN MC SEE COMMENTS Last administered on 07/26/18at 15:24; Start 07/21/18 at 17:00 Gabapentin (Neurontin) 100 mg TID PO Last administered on 07/28/18 08:47; Start 07/23/18 at 09:00 Non-Formulary Medication (Donepezil Hcl (Aricept)) 23 mg HS PO ; Start 07/23/18 at 21:00; Status UNV Levothyroxine Sodium (Synthroid) 50 mcg DAILY06 PO Last administered on 07/28/18 04:31; Start 07/23/18 at 10:30 Memantine (Namenda) 10 mg DAILY PO Last administered on 07/28/18at 08:48; Start 07/23/18 at 09:00 Donepezil HCl (Aricept) 10 mg QHS PO Last administered on 07/23/18 21:13; Start 07/23/18 at 21:00; Stop 07/24/18 at 11:38; Status DC Apixaban (Eliquis) 5 mg BID PO Last administered on 07/28/18at 08:48; Start 07/23/18 at 21:00 Alteplase, Recombinant (Cathflo For Central Catheter Clearance) 1 mg 1X ONCE INT CAT Last administered on 07/24/18at 10:04; Start 07/24/18 at 09:00; Stop 07/24/18 at 09:01; Status DC Acetaminophen/ Hydrocodone Bitart (Lortab 5/325) 1 tab PRN Q6HRS PRN PO PAIN Last administered on 07/26/18at 04:36; Start 07/24/18 at 10:30; Stop 07/26/18 at 15:14; Status DC Aspirin (Ecotrin) 81 mg DAILYWBKFT PO Last administered on 07/28/18at 08:48; Start 07/24/18 at 14:00 Acetaminophen/ Hydrocodone Bitart (Lortab 7.5/325) 1 tab PRN Q4HRS PRN PO PAIN Last administered on 07/28/18at 04:31; Start 07/26/18 at 15:15 Active Scripts Active Hydrocodone-Apap 5-325 (Hydrocodone Bit/Acetaminophen) 1 Tab Tablet 1 Tab PO PRN Q6HRS PRN 6 Days Aspirin Ec (Aspirin) 81 Mg Tablet.dr 81 Mg PO DAILYWBKFT 30 Days Eliquis (Apixaban) 5 Mg Tablet 5 Mg PO BID 30 Days Reported Hydrocodone-Apap 5-325 (Hydrocodone Bit/Acetaminophen) 1 Tab Tablet 1 Tab PO PRN Q6HRS PRN Gabapentin (Gabapentin) 100 Mg Capsule 100 Mg PO TID Namenda (Memantine Hcl) 10 Mg Tablet 10 Mg PO DAILY Levothyroxine Sodium 50 Mcg Tablet 1 Tab PO DAILY Vitals/I & O Vital Sign - Last 24 Hours 07/27/18 07/27/18 07/27/18 07/27/18 11:00 15:00 19:00 20:00 Temp 97.8 98.0 97.7 97.8 98.0 97.7 Pulse 91 69 84 Resp 18 18 18 B/P (MAP) 105/69 (81) 107/64 (78) 118/72 (87) Pulse Ox 91 94 97 O2 Delivery Room Air Room Air Room Air Room Air O2 Flow Rate 1.0 1.0 07/27/18 07/27/18 07/28/18 07/28/18 20:28 22:40 02:18 04:31 Temp 98.0 97.9 98.0 97.9 Pulse 76 81 Resp 18 18 17 18 B/P (MAP) 103/71 (82) 102/61 (75) Pulse Ox 97 96 97 97 O2 Delivery Room Air Room Air Room Air Room Air 07/28/18 07/28/18 07/28/18 05:31 07:00 07:39 Temp 97.3 97.3 Pulse 85 Resp 18 18 B/P (MAP) 137/80 (99) Pulse Ox 97 99 O2 Delivery Room Air Room Air Room Air Intake and Output 07/27/18 07/27/18 07/28/18 15:00 23:00 07:00 Intake Total 110 ml 120 ml Output Total 200 ml 300 ml Balance 110 ml -80 ml -300 ml Nutrition Consultation Dietary Evaluation: Recommendations by RD: Increase Calorie Intake Comments: Continue w/cardiac diet as ordered, honor food preferences, and provide snacks as requested Expected Outcomes/Goals: PO intake to meet >75% est needs - met, goal ongoing Malnutrition Findings: Body Fat Depletion (Non Severe: Mild Depletion Weight Status: Appropriate QAMAR SHARMA MD Jul 28, 2018 10:11
[2018-07-28] MEDS ORDERED: DOXY100T PO (10:35)
[2018-07-28] MEDS ORDERED: CEPH-264 PO (10:35)
[2018-07-28 11:00] VITALS: BP 90/58
--- NOTE | 2018-07-28 11:10 | NUR ---
SS following up with discharge planning. Discharge orders received for [facility], ; fax [phone]. SS phoned and faxed discharge orders to [facility]. Pt will discharge today and go to [facility] between 1430 and 1500 via stretcher. [facility] arranging transport. Pt, pt's RN, and pt's family notified of discharge.
== END 2018-07-28 15:30 | DRG 270 ==
LOC: ER 10:40 → 4 NORTH 14:20 → 6 SOUTH 21:10 → 1 WEST ICU 07-20 15:29 → 2 SOUTH 07-22 14:12
PROVIDERS: ADMIT Internal Medicine; ATTEND Internal Medicine
PROC: 02HV33Z Insertion of Infusion Device into Superior Vena Cava, Percutaneous Approach (ICD-10-PCS; 2018-07-20)
PROC: B5181ZA Fluoroscopy of Superior Vena Cava using Low Osmolar Contrast, Guidance (ICD-10-PCS; 2018-07-20)
PROC: B548ZZA Ultrasonography of Superior Vena Cava, Guidance (ICD-10-PCS; 2018-07-20)
PROC: 047R3ZZ Dilation of Right Posterior Tibial Artery, Percutaneous Approach (ICD-10-PCS; principal; 2018-07-21)
PROC: 04CR3ZZ Extirpation of Matter from Right Posterior Tibial Artery, Percutaneous Approach (ICD-10-PCS; 2018-07-21)
PROC: 047P3ZZ Dilation of Right Anterior Tibial Artery, Percutaneous Approach (ICD-10-PCS; 2018-07-21)
PROC: 047M3EZ Dilation of Right Popliteal Artery with Two Intraluminal Devices, Percutaneous Approach (ICD-10-PCS; 2018-07-21)
PROC: 047R3ZZ Dilation of Right Posterior Tibial Artery, Percutaneous Approach (ICD-10-PCS; 2018-07-21)
PROC: 3E05317 Introduction of Other Thrombolytic into Peripheral Artery, Percutaneous Approach (ICD-10-PCS; 2018-07-21)
PROC: B41F1ZZ Fluoroscopy of Right Lower Extremity Arteries using Low Osmolar Contrast (ICD-10-PCS; 2018-07-21)
PROC: 3E05317 Introduction of Other Thrombolytic into Peripheral Artery, Percutaneous Approach (ICD-10-PCS; 2018-07-21)
DX: I73.9 Peripheral vascular disease, unspecified (principal); G93.41 Metabolic encephalopathy; I74.3 Embolism and thrombosis of arteries of the lower extremities; I72.4 Aneurysm of artery of lower extremity; E03.9 Hypothyroidism, unspecified; F03.90 Unspecified dementia, unspecified severity, without behavioral disturbance, psychotic disturbance, mood disturbance, and anxiety; I48.91 Unspecified atrial fibrillation; I72.3 Aneurysm of iliac artery; S90.821A Blister (nonthermal), right foot, initial encounter; M19.90 Unspecified osteoarthritis, unspecified site; I99.8 Other disorder of circulatory system; Z66 Do not resuscitate; X58.XXXA Exposure to other specified factors, initial encounter; Z82.49 Family history of ischemic heart disease and other diseases of the circulatory system; Z85.46 Personal history of malignant neoplasm of prostate; Z85.038 Personal history of other malignant neoplasm of large intestine; Z87.891 Personal history of nicotine dependence; Z79.899 Other long term (current) drug therapy; Z88.0 Allergy status to penicillin; Z90.49 Acquired absence of other specified parts of digestive tract; Y93.89 Activity, other specified; Y92.89 Other specified places as the place of occurrence of the external cause; Y99.8 Other external cause status
CPT/HCPCS: 36415; 36569; 37184; 37214; 37226; 37228; 37232; 64493; 71045; 75625; 75635; 75710; 76937; 77001; 80048; 80053; 80061; 82550; 83605; 83735; 83880; 84443; 85025; 85027; 85384; 85520; 85610; 85730; 93005; 93306; 93923; 93971; 99152; 99153; A4215; C1713; C1725; C1751; C1758; C1760; C1769; C1892; C1894; G0269; J1170; J1630; J1644; J2060; J2250; J2270; J2997; J3010; J3370; J3490; J7030; J7050; Q9967; 97116; 97530; 97535; 99285-25